=== PATIENT | male | born 1940 | race Caucasian/White ===

== ENCOUNTER → 2017-07-24 | Outpatient (CLI) | payer BC ==
--- NOTE | 2017-07-24 13:32 | DIAGNOSTIC IMAGING REPORT ---
BONE SCAN WHOLE BODY HISTORY: 77 years-old Male BONE LESION M89.9 bone lesions of T11 and L5. Follow-up study. COMPARISON: Lumbar spine MRI 06/25/2017 TECHNIQUE: Anterior and posterior lateral body bone scan images were obtained utilizing 24 mCi technetium 99 MDP. Scan was obtained 3 hours post injection. FINDINGS: No significant focal radiotracer uptake is seen within the T11 vertebral body to correlate with the previously described focal area of decreased T1 and T2 signal within this distribution. Mildly increased radiotracer uptake is seen at the L4 and L5 levels with uptake at L5 seen at the left aspect of the vertebral body. No focal abnormality is seen at the L4 level to correspond to the area of radiotracer uptake. Mild radiotracer uptake is noted about the shoulders, knees and thoracolumbar spine suggesting degenerative changes. Moderate focal area of radiotracer uptake in the region of the first digit right foot is also noted. Physiologic radiotracer uptake is seen about the kidneys, collecting systems and urinary bladder as well as the soft tissues. IMPRESSION: 1. Mildly increased radiotracer uptake within the L5 vertebral body is noted within the region of previously described L5 signal abnormality on comparison lumbar spine MRI. This finding is nonspecific. Short-term follow-up lumbar spine MRI recommended. 2. No focal radiotracer uptake identified to correlate with the area of signal abnormality within the T11 vertebral body. 3. Mildly increased radiotracer uptake at L4 without corresponding lesion seen on comparison MRI at this level. This may be degenerative in nature. 4. Areas of mildly increased radiotracer uptake throughout the appendicular skeletal system as above are likely degenerative. 5. Moderate focal radiotracer uptake within the region of the right first MTP joint may also be degenerative. Follow-up radiograph may be helpful to further evaluate. The above report was generated using voice recognition software. It may contain grammatical, syntax or spelling errors. Electronically signed by: Darin Ziegler M.D. 07/24/2017 1:30 PM Dictated Date/Time: 07/24/2017 1:16 PM
== END | disposition home or self-care (01) ==
LOC: C.NUCL 09:20
PROVIDERS: ATTEND Pain Medicine Interventional Pain Medicine
DX: M89.9 Disorder of bone, unspecified (principal)

== ENCOUNTER 2018-01-06 08:19 | Inpatient (IN) | payer BC, OTHER ==
[2017-12-16 11:52] VITALS: BMI 24.0
--- NOTE | 2017-12-16 12:35 | PAT Medication Instructions ---
Service Date Dec 16, 2017. Current Home Medication List Aspirin (Aspirin Ec), 325 MG PO HS Atenolol (Tenormin), 50 MG PO QAM Cetirizine (Zyrtec), 10 MG PO DAILY PRN for PRN Cyclobenzaprine Hcl (Flexeril), 10 MG PO TID PRN for Muscle Spasms Fluocinonide (Fluocinonide), 1 APPLN TOP DAILY PRN for PRN Indapamide (Lozol), 1.25 MG PO QAM Lisinopril (Lisinopril), 10 MG PO HS Nitroglycerin (Nitrostat), 0.4 MG UT PRN Nortriptyline (Pamelor), 10 MG PO HS Ranitidine (Zantac), 150 MG PO BID Temazepam (Restoril), 15 MG PO HS PRN for PRN [Humalog ], 1 DOSE SQ TIDM PRN for SLIDING SCALE Medication Instructions For Your Scheduled Surgery -Contact your surgeon and rd project manager for instructions for: Aspirin (Aspirin Ec), 325 MG PO HS (Baby Aspirin (81mg) is OK to continue per Dr. Longo) -Continue as directed: Nitroglycerin (Nitrostat), 0.4 MG UT PRN - Hold the following medications 24 hours prior to surgery: Fluocinonide (Fluocinonide), 1 APPLN TOP DAILY PRN for PRN - Hold the following medications the night before surgery: Lisinopril (Lisinopril), 10 MG PO HS - Hold the following medications the morning of surgery: Cetirizine (Zyrtec), 10 MG PO DAILY PRN for PRN Cyclobenzaprine Hcl (Flexeril), 10 MG PO TID PRN for Muscle Spasms Indapamide (Lozol), 1.25 MG PO QAM [Humalog ], 1 DOSE SQ TIDM PRN for SLIDING SCALE - Take the following medications the morning of surgery with a sip of water: Atenolol (Tenormin), 50 MG PO QAM Ranitidine (Zantac), 150 MG PO BID - Take the following medications as scheduled the night before surgery: Cetirizine (Zyrtec), 10 MG PO DAILY PRN for PRN (if needed) Cyclobenzaprine Hcl (Flexeril), 10 MG PO TID PRN for Muscle Spasms (if needed) Nortriptyline (Pamelor), 10 MG PO HS Ranitidine (Zantac), 150 MG PO BID Temazepam (Restoril), 15 MG PO HS PRN for PRN (if needed) [Humalog ], 1 DOSE SQ TIDM PRN for SLIDING SCALE If you have any questions please call us at [phone] or [phone] or [phone]
--- NOTE | 2017-12-16 13:09 | DIAGNOSTIC IMAGING REPORT ---
CHEST 2 VIEWS ROUTINE HISTORY: 77 years-old Male PAT preoperative exam. No acute chest complaints. COMPARISON: None available TECHNIQUE: PA and lateral views of the chest FINDINGS: Cardiomediastinal and hilar silhouettes are within normal limits. Atherosclerosis of the aorta. Coronary arterial stent graft noted. No pneumothorax, pleural effusion, focal airspace consolidation or overt pulmonary edema. Degenerative changes are noted within the shoulders and spine. Cystectomy clips are seen. IMPRESSION: No acute process. The above report was generated using voice recognition software. It may contain grammatical, syntax or spelling errors. Electronically signed by: Darin Ziegler M.D. 12/16/2017 1:08 PM Dictated Date/Time: 12/16/2017 1:06 PM
[2017-12-16 13:24] LABS: BASO % 0.1 %; BASO ABS # 0.01 K/uL (0-0.2); EOS % 2.2 %; EOS ABS # 0.16 K/uL (0-0.5); HEMOGLOBIN 15.2 g/dL (14.0-18.0); IG# 0.02 K/uL (0.00-0.02); LYMPH % 27.2 %; MEAN CORPUSCULAR HEMOGLOBIN 31.8 pg (25-34); MEAN CORPUSCULAR HGB CONC 35.3 g/dl (32-36); MONO % 9.8 %; MONO ABS # 0.72 K/uL (0.11-0.59); NEUT % 60.4 %; NEUT ABS # 4.45 K/uL (1.4-6.5); PLATELET COUNT 225 K/uL (130-400); RED CELL DISTRIBUTION WIDTH CV 13.1 % (11.5-14.5); RED CELL DISTRIBUTION WIDTH SD 43.2 fL (36.4-46.3); WHITE BLOOD COUNT 7.36 K/uL (4.8-10.8)
[2017-12-16 13:38] LABS: CALCIUM 9.7 mg/dl (8.5-10.1); CREATININE 0.94 mg/dl (0.60-1.40); POTASSIUM 4.4 mmol/L (3.5-5.1)
[~2018-01-06] VITALS: Ht 185.4 cm; Wt 85.5 kg
[2018-01-06] VITALS (11 sets, daily range): BP systolic 134–188; BP diastolic 64–82; PULSE 64–86; TEMP 36.3–36.4; O2SAT 94–98; Ht 185.4 cm; Wt 85.5 kg
[~2018-01-06 08:19] MED LIST: ASPI325T39 PO; ATEN50TA8 PO; ATROPINE SULFATE 0.1 MG/ML 5ML SYR IV PRN; CEFAZOLIN 2000MG IV PUSH 15 ML IV SCH; CETI10TA84 PO; CYCL10TA6 PO; EpHEDrine SULFATE INJ 50 MG/ML AMP IV PRN; FLUO0.0566 TOP; HUMALOG SQ; HYDROmorphone INJ 1 MG/ML SYR IV PRN; INDA1TAB3 PO; LACTATED RINGER'S 1000ML 1,000 ML IV SCH; LISI-461 PO; NORT10CA2 PO; NTRGSL/4 UT; ONDANSETRON INJ 2 MG/ML 2 ML VIAL IV PRN; RANI150T85 PO; TEMA15CA4 PO
[2018-01-06] MEDS ORDERED: ASPI81TA28 PO (09:14)
[2018-01-06] MEDS ORDERED: MIDAZOLAM HCL 1 MG/ML 2ML VIAL ONE (09:14)
[2018-01-06] MEDS ORDERED: FENTANYL CITRATE INJ 50 MCG/1 ML 2 ML VIAL ONE ×4 (09:14→13:27)
--- NOTE | 2018-01-06 09:23 | History & Physical Bridge Note ---
H&P Re-Evaluation Bridge Note: I have examined the patient, reviewed the History & Physical and in the interval since the performance of the History & Physical I have noted the following changes of clinical significance: No changes noted
--- NOTE | 2018-01-06 09:25 | History and Physical ---
History & Physical Date Jan 06, 2018. Chief Complaint Back and leg pain History of Present Illness The patient is a 78 year old male with complaints of back and leg pain Additional History Hepatic Disease: No Endocrine Disorder: No Kidney Disease: No Hypertension: Yes Heart Disease: No Bleeding Tendencies: No Infectious Diseases: No Allergies Coded Allergies: No Known Allergies (Unverified , 12/16/17) Home Medications Scheduled Aspirin (Aspirin Ec), 81 MG PO DAILY Atenolol (Tenormin), 50 MG PO QAM Indapamide (Lozol), 1.25 MG PO QAM Lisinopril (Lisinopril), 10 MG PO HS Nitroglycerin (Nitrostat), 0.4 MG UT PRN Nortriptyline (Pamelor), 10 MG PO HS Ranitidine (Zantac), 150 MG PO BID Scheduled PRN Cetirizine (Zyrtec), 10 MG PO DAILY PRN for PRN Cyclobenzaprine Hcl (Flexeril), 10 MG PO TID PRN for Muscle Spasms Fluocinonide (Fluocinonide), 1 APPLN TOP DAILY PRN for PRN Temazepam (Restoril), 15 MG PO HS PRN for PRN [Humalog ], 1 DOSE SQ TIDM PRN for SLIDING SCALE Physical Examination Skin: warm/dry, no rash Eyes: normal inspection, EOMI, sclerae normal ENT: normal ENT inspection, pharynx normal Head: normocephalic, atraumatic Neck: supple, no adenopathy, trachea midline Respiratory/Chest: lungs clear, normal breath sounds, no respiratory distress Cardiovascular: regular rate, rhythm, no edema, no murmur Abdomen / GI: normal bowel sounds, non tender Back: normal inspection Extremities: normal inspection, normal range of motion Neurologic/Psych: no motor/sensory deficits, alert, normal reflexes, oriented x 3 Diagnosis Lumbar spinal stenosis Plan of Treatment L3-S1 decompression and fusion possible L2-3
[2018-01-06] MEDS ORDERED: BACITRACIN 50000 UNIT VIAL ONE (09:47)
[2018-01-06] MEDS ORDERED: BUPIVACAINE/EPINEPHRINE 0.5% MPF 1:200,000 30 ML VIAL ONE (09:47)
[2018-01-06] MEDS ORDERED: HYDROmorphone INJ 2 MG/ML SYR/VIAL ONE ×3 (10:43→12:51)
[2018-01-06] MEDS ORDERED: ROCURONIUM BROMIDE 10 MG/ML 5 ML VIAL IV ONE (12:33)
[2018-01-06] MEDS ORDERED: DEXAMETHASONE SOD INJ 4 MG/ML VIAL ONE (12:33)
[2018-01-06] MEDS ORDERED: PROPOFOL IV EMULSION 10 MG/ML 20 ML VIAL IV ONE (12:33)
[2018-01-06] MEDS ORDERED: ONDANSETRON INJ 2 MG/ML 2 ML VIAL ONE ×2 (12:33→12:52)
[2018-01-06] MEDS ORDERED: LIDOCAINE HCL 2% 2 ML VIAL (20MG/ML) ONE (12:33)
[2018-01-06] MEDS ORDERED: VOLUVEN IN NSS ONE (12:33)
[2018-01-06] MEDS ORDERED: FLOSEAL HEMOSTATIC MATRIX 10ML TOP ONE (12:35)
[2018-01-06] MEDS ORDERED: SODIUM CHLORIDE 0.9% 1000ML 1,000 ML IV SCH (12:41)
--- NOTE | 2018-01-06 12:41 | [facility] Operative Report ---
Operative Report Operative Date Jan 06, 2018. Pre-Operative Diagnosis Lumbar spinal stenosis Post-Operative Diagnosis Lumbar spinal stenosis Procedure(s) Performed 1 Lumbar decompression medial facetectomies foraminotomies L3-4 L4-5 L5-S1. #2 posterior spinal fusion L3-4 L4-5 L5-S1. #3 posterior segmental instrumentation L3-4 L4-5 L5-S1. #4 interbody fusion L4-5. #5 placement peek cage 11 x 26 mm at L4-5. #6 placement of locally harvested morselized autograft and posterior gutters. #7 placement physical sponge, and master graft in the posterior lateral gutters and ostial and bone graft in the interbody space. Surgeon Dr. Kashif Longo Manager Environmental Services Surgeon(s) Alison Ravi PA-C Estimated Blood Loss 450ml Findings Severe spinal stenosis Specimens None per surgeon Anesthesia Type General Description of Procedure Patient was met with preoperatively case discussed all questions addressed. After informed consent obtained patient was taken to the operative suite underwent intubation and placed in a prone position on the Murphy table on top of the Devendra frame. All bony prominences were well-padded the eye is inspected to ensure no external pressure placed upon them. This point the lumbar spine was prepped and draped in normal sterile fashion. Sharp dissection with the assistance of Bovie cautery was performed on March exposing the lamina and transverse processes of L3-L4-L5 and the sacral ala bilaterally. A calcified fashion and laminectomy of L5 L4 and L3 was performed addressing severe lateral recess and foraminal stenosis. Pedicle screws were then placed in L3-L4-L5 and S1 levels bilaterally with the assistance of fluoroscopy and the appropriately sized vishnu placed. Through a transforaminal approach on the left complete discectomy will 4 5 was performed in plegic related to subcortical bleeding bone and a 11 x 26 mm peek cage filled with ostial amp bone graft tapped in position. Rods were then locked into final position bilaterally. The transverse processes of L3-L4-L5 and sacral ala burred to subcortical bleeding bone. Infuse collagen sponge mass graft and locally harvested Sanderson's allograft was placed in the posterior lateral gutters. A 15 round LIS drain inserted. Incision was then closed with 1 Vicryl fascia 2-0 Vicryl subcutaneously and 4-0 Monocryl fashion closure Steri-Strips sterile dressings placed. Patient will continue to PACU in stable condition. Please note Alison Ravi was present throughout the entire procedure involved in patient positioning complex portions of the surgery and final skin closure. I attest to the content of the Intraoperative Record and any orders documented therein. Any exceptions are noted below.
[2018-01-06] MEDS ORDERED: PROMETHAZINE HCL INJ 12.5 MG in SODIUM CHLORIDE 0.9% 50ML 50 ML IV PRN (12:45)
[2018-01-06] MEDS ORDERED: ACETAMINOPHEN 500 MG TAB PO PRN (12:45)
[2018-01-06] MEDS ORDERED: DO NOT ADMINISTER FLU VACCINE PRN (12:45)
[2018-01-06] MEDS ORDERED: FAMOTIDINE 20 MG TAB PO PRN (12:45)
[2018-01-06] MEDS ORDERED: ALUMINUM/MAGNESIUM SUSP 30 ML UDC PO PRN (12:45)
[2018-01-06] MEDS ORDERED: SOD PHOSPHATE/SOD BIPHOSPHATE ENEMA 132 ML BTL PR PRN (12:45)
[2018-01-06] MEDS ORDERED: ACETAMINOPHEN IV 100 ML IV PRN (12:45)
[2018-01-06] MEDS ORDERED: hydrOXYzine HCL 25 MG TAB PO PRN (12:45)
[2018-01-06] MEDS ORDERED: LORAZEPAM 0.5 MG TAB PO PRN (12:45)
[2018-01-06] MEDS ORDERED: NITROGLYCERIN 0.4 MG SL PER TAB CHARGE UT SCH (12:45)
[2018-01-06] MEDS ORDERED: TEMAZEPAM 15 MG CAP PO PRN (12:45)
[2018-01-06] MEDS ORDERED: LORAZEPAM INJ 0.5 MG in SYRINGE 0 ML IV PRN (12:45)
[2018-01-06] MEDS ORDERED: MAGNESIUM HYDROXIDE SUSP 30 ML UDC PO PRN (12:45)
[2018-01-06] MEDS ORDERED: METOCLOPRAMIDE HCL INJ 5 MG/ML 2 ML VIAL IV PRN (12:45)
[2018-01-06] MEDS ORDERED: BISACODYL 10 MG SUPP PR PRN (12:45)
[2018-01-06] MEDS ORDERED: DO NOT ADMINISTER PNEUMOCOCCAL VACCINE PRN (12:45)
[2018-01-06] MEDS ORDERED: NALOXONE HCL 0.4 MG/1 ML VIAL/CARP IV PRN ×2 (12:45)
--- NOTE | 2018-01-06 12:51 | DIAGNOSTIC IMAGING REPORT ---
LUMBAR SPINE 2 OR 3 VIEW HISTORY: 78 years-old Male L3-S1 DECOMPRESSION/FUSION/POSS L2-3 status post lumbar spine surgery COMPARISON: Lumbar spine radiographs 06/17/2017 TECHNIQUE: 2 spot fluoroscopic images of the lumbar spine were obtained utilizing 24.5 seconds fluoroscopy time FINDINGS: Postoperative changes from posterior decompression with posterior interbody vishnu and screw fusion at L3-S1. Discectomy changes at L4-L5. Multilevel intervertebral disc space narrowing with endplate spurring. Alignment appears satisfactory. IMPRESSION: Fluoroscopic assistance with lumbar spine fusion as above. Please see operative report for further details. The above report was generated using voice recognition software. It may contain grammatical, syntax or spelling errors. Electronically signed by: Darin Ziegler M.D. 01/06/2018 12:50 PM Dictated Date/Time: 01/06/2018 12:48 PM
[2018-01-06] MEDS ORDERED: NEOSTIGMINE METHYLSULFATE 1 MG/ML 10ML VIAL ONE (12:52)
[2018-01-06] MEDS ORDERED: KETOROLAC TROMETHAMINE 30 MG/ML VIAL ONE ×2 (12:52→14:12)
[2018-01-06] MEDS ORDERED: PHENYLEPHRINE 100MCG/ML 5ML SYR ONE (12:52)
[2018-01-06] MEDS ORDERED: EpHEDrine SULFATE 50MG/5ML SYR ONE (12:52)
[2018-01-06] MEDS ORDERED: GLYCOPYRROLATE INJ 0.2 MG/ML VIAL ONE (12:52)
[2018-01-06] MEDS ORDERED: HYDROmorphone HCL 0.5MG/ML 50 ML CASSETTE ONE (13:18)
[2018-01-06] MEDS: FENTANYL CITRATE INJ 50 MCG/1 ML 2 ML VIAL IV PRN ×4 (13:29→13:46)
--- NOTE | 2018-01-06 13:59 | Anesthesiology Progress Note ---
Anesthesia Post Op Note Date & Time Jan 06, 2018 at 13:59 Vital Signs Pain Intensity: 3 Vital Signs Past 12 Hours Date Time Temp Pulse Resp B/P (MAP) Pulse Ox O2 Delivery O2 Flow Rate FiO2 01/06/18 13:55 36.7 79 16 150/72 100 Nasal Cannula 4 01/06/18 13:45 78 16 121/61 100 Nasal Cannula 4 01/06/18 13:35 78 16 135/68 100 Nasal Cannula 4 01/06/18 13:25 79 16 123/51 100 Oxymask 10 01/06/18 13:15 80 16 142/57 100 Oxymask 10 01/06/18 13:08 36.6 85 16 95/55 100 Oxymask 10 01/06/18 08:51 36.3 64 20 160/71 98 01/06/18 08:48 64 20 160/71 Notes Mental Status: alert / awake / arousable, participated in evaluation Pt Amnestic to Procedure: Yes Nausea / Vomiting: adequately controlled Pain: adequately controlled Airway Patency, RR, SpO2: stable & adequate BP & HR: stable & adequate Hydration State: stable & adequate Anesthetic Complications: no major complications apparent
[2018-01-06] MEDS: HYDROmorphone HCL 0.5MG/ML 50 ML CASSETTE IV PRN ×3 (14:21→23:14)
[2018-01-06] MEDS ORDERED: GLUCOSE 10 TABS/TUBE PO PRN (15:15)
[2018-01-06] MEDS ORDERED: GLUCOSE 40% GEL 15 GM TUBE PO PRN (15:15)
[2018-01-06] MEDS ORDERED: DEXTROSE 50% 50 ML SYR IV PRN (15:15)
[2018-01-06] MEDS ORDERED: GLUCAGON FOR INJ 1 MG VIAL SQ PRN (15:15)
--- NOTE | 2018-01-06 15:22 | Medical Consult ---
History General Date of Service: Jan 06, 2018. Stated Complaint: Spinal Stenosis HPI The patient is a 78 year old male who presents to [facility] with complaints of Spinal Stenosis. The patient's primary care provider is Oralia Rojas. Patient underwent spinal decompression surgery by Dr. Longo earlier today for chronic low back pain - Patient has history of coronary artery disease status post multiple PTCA, mild aortic stenosis had preop evaluation by his food mixer repairer Patient reports of good exercise tolerance, was going to gym 2-3 times a week until he had to discontinue few months for back pain radiating to his legs -Recovering well postoperatively. Has intermittent pain at surgical site, mentions of getting relief with pain pump -No complaint of chest pain, no shortness of breath, no palpitation or dizzy spell Review of Systems Constitutional: reports: no symptoms Eyes: reports: no symptoms ENT: reports: no symptoms Cardiovascular: reports: no symptoms Respiratory: reports: no symptoms Gastrointestinal: reports: no symptoms Musculoskeletal: reports: other (Chronic back pain, status post lumbar decompression surgery earlier today) Integumentary: reports: no symptoms Psychiatric: reports: no symptoms Social History Hx Tobacco Use In Past Year?: No (QUIT AT AGE 34. HX OF 2 PPD X15 YEARS) Smoking Status: Former Smoker Allergies Coded Allergies: No Known Allergies (Unverified , 12/16/17) Current Medications Reported Home Medications Medications Dose Route/Sig Max Daily Dose Days Date Category Aspirin Ec (Aspirin) 81 Mg Tab 81 Mg PO DAILY 01/06/18 Reported [Humalog ] 1 Dose SQ TIDM PRN 12/16/17 Reported Nitrostat (Nitroglycerin) 0.4 Mg Tab 0.4 Mg UT PRN 12/16/17 Reported Zantac (Ranitidine HCl) 150 Mg Tab 150 Mg PO BID 12/16/17 Reported Lozol (Indapamide) 1.25 Mg Tab 1.25 Mg PO QAM 12/16/17 Reported Pamelor (Nortriptyline HCl) 10 Mg Cap 10 Mg PO HS 12/16/17 Reported Zyrtec (Cetirizine HCl) 10 Mg Tab 10 Mg PO DAILY PRN 12/16/17 Reported Tenormin (Atenolol) 50 Mg Tab 50 Mg PO QAM 12/16/17 Reported Lisinopril 10 Mg Tab 10 Mg PO HS 12/16/17 Reported Fluocinonide 0.05 % Rocio 1 Appln TOP DAILY PRN 30 12/16/17 Reported Flexeril (Cyclobenzaprine Hcl) 10 Mg Tab 10 Mg PO TID PRN 12/16/17 Reported Restoril (Temazepam) 15 Mg Cap 15 Mg PO HS PRN 12/16/17 Reported Physical Physical Exam Vital Signs: Date Time Temp Pulse Resp B/P (MAP) Pulse Ox O2 Delivery O2 Flow Rate FiO2 01/06/18 14:15 Nasal Cannula 2.0 01/06/18 14:15 36.4 78 16 134/64 (87) 96 Nasal Cannula 2.0 01/06/18 14:05 36.7 80 16 137/64 100 Nasal Cannula 4 01/06/18 13:55 36.7 79 16 150/72 100 Nasal Cannula 4 01/06/18 13:45 78 16 121/61 100 Nasal Cannula 4 01/06/18 13:35 78 16 135/68 100 Nasal Cannula 4 01/06/18 13:25 79 16 123/51 100 Oxymask 10 01/06/18 13:15 80 16 142/57 100 Oxymask 10 01/06/18 13:08 36.6 85 16 95/55 100 Oxymask 10 01/06/18 08:51 36.3 64 20 160/71 98 01/06/18 08:48 64 20 160/71 General Appearance: WELL-APPEARING, NO APPARENT DISTRESS Head: NORMOCEPHALIC, ATRAUMATIC Eyes: PERRLA, EOMI, SCLERAE NORMAL Neck: TRACHEA MIDLINE, SUPPLE Respiratory: BREATH SOUNDS NORMAL, CLEAR TO AUSCULTATION, NO RESPIRATORY DISTRESS Cardiovasular: NORMAL S1S2 Abdomen: NON TENDER, NORMAL BOWEL SOUNDS Back: other (Status post lumbar decompression surgery, ) Lower Extremities: NO EDEMA Neuro: ALERT, ORIENTED x 3 Psychiatric: NORMAL AFFECT Diagnostics Labs Results Past 24 Hours Test 01/06/18 09:01 01/06/18 13:16 01/06/18 15:07 Range/Units Bedside Glucose 140 203 70-99 mg/dl Radiology Interpretation: CXR NORMAL Impression Assessment and Plan LUMBER SPINE STENOSIS S/P DECOMPRESSION SURGERY : POD #0 -Doing well postop -Continue PT/ OT, pain management per orthopedics HX OF CAD S/P PTCA : no cardiac symptoms or angina hx of multivessel CAD S/p 4 stents in LAD , 1 stent in circumflex pt completed dual antiplatelet tx for 12 months ,off Plavix since end december had 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 Dr Abisai Magallanes , found to be stable from cardiac stand point to proceed with lumber spinal surgery Aspirin resumed -by Spine Ortho cont on Beta kirstie Atenolol not on statin for hx of intolerance on ACEI lisinopril 10 mg HS , monitor PRP to assess renal function post op ordered for Repeat EKG in AM PRN EKG for chest pain HTN : BP stable on Atenolol Hold Indapamide as pre op BMP shows hyponatremia ordered for repeat PRP check on Lisinopril 10 mg HS follow PRP closely as pt remains high risk for post op -vol loss /[place]O HYPERLIPIDEMIA : not on statin due to hx of intolerance TYPE 2 DM : no on any meds Hb a1c on 09/22/17 :7.3 BSG > 200 possible due to intraoperative IV steroids insulin SSI check Hb A1c in AM Thank you for this consultation. We will follow the patient with you during their hospital stay. You can reach a member of the [facility] Hospitalist Team 12/05 via pager @ [phone]. Dr. Bill will continue to follow this patient from tomorrow 01/07/2018. Admit To Med/Surg Code Status Level 1 - Full Code DVT Prophylaxis SCDs, other (aspirin ) Additional Copies To Josiah Magallanes M.D., Ireneusz
[2018-01-06] MEDS ORDERED: NITROGLYCERIN 0.4 MG SL PER TAB CHARGE SL PRN (15:30)
[2018-01-06 15:56] LABS: CALCIUM 8.2 mg/dl (8.5-10.1); CREATININE 0.94 mg/dl (0.60-1.40); POTASSIUM 3.9 mmol/L (3.5-5.1)
[2018-01-06] MEDS ORDERED: CHLORASEPTIC 1.4% SOLN 180 ML BTL MT ONE (16:10)
[2018-01-06] MEDS ORDERED: CHLORASEPTIC 1.4% SOLN 180 ML BTL MT PRN (16:15)
[2018-01-06] MEDS: SODIUM CHLORIDE 0.9% 1000ML 1,000 ML IV SCH ×2 (16:19→21:09)
--- NOTE | 2018-01-06 17:27 | Progress Note ---
Progress Note Date of Service Jan 06, 2018. Progress Note 1500 postop PRP reviewed: Sodium 138 (prior labs showing hyponatremia corrected) BUN of 19/creatinine 0.94/GFR more than 75% Renal function is at patient's baseline All patient's outpatient antihypertensives: Including Indapamide 1.25 mg AM resumed Summer Wyman MD
[2018-01-06] MEDS: CEFAZOLIN IV 2,000 MG in SYRINGE 0 ML IV SCH (18:28)
[2018-01-06] MEDS: ONDANSETRON INJ 2 MG/ML 2 ML VIAL IV PRN (18:52)
[2018-01-06] MEDS: INSULIN ASPART 100 UNITS/ML 3 ML PEN SC SCH ×2 (19:46→21:07)
[2018-01-06] MEDS: LISINOPRIL 10 MG TAB PO SCH (20:34)
[2018-01-06] MEDS: DOCUSATE SODIUM/SENNA 50/8.6MG TAB PO SCH (20:34)
[2018-01-06] MEDS: RANITIDINE HCL 150 MG TAB PO SCH (20:34)
[2018-01-06] MEDS: NORTRIPTYLINE HCL 10 MG CAP PO SCH (20:35)
[2018-01-07] VITALS (10 sets, daily range): BP systolic 127–179; BP diastolic 58–76; PULSE 64–84; TEMP 36.3–36.7; O2SAT 90–100
[2018-01-07] MEDS: CEFAZOLIN IV 2,000 MG in SYRINGE 0 ML IV SCH (02:18)
[2018-01-07] MEDS ORDERED: NURSING DECISION MEDICATION ORDER SCH (02:30)
[2018-01-07] MEDS: ONDANSETRON INJ 2 MG/ML 2 ML VIAL IV PRN (02:34)
[2018-01-07] MEDS: SODIUM CHLORIDE 0.9% 1000ML 1,000 ML IV SCH (04:02)
[2018-01-07] MEDS ORDERED: HYDROmorphone INJ 0.5 MG/0.5 ML SYR IV PRN (06:00)
[2018-01-07] MEDS ORDERED: DC PCA SCH (06:00)
[2018-01-07] MEDS: OXYCODONE HCL IR 5 MG TAB (IMMEDIATE RELEASE) PO PRN ×4 (08:05→21:48)
[2018-01-07 08:22] LABS: BASO % 0.1 %; BASO ABS # 0.01 K/uL (0-0.2); HEMOGLOBIN 11.6 g/dL (14.0-18.0); IG# 0.04 K/uL (0.00-0.02); LYMPH % 6.5 %; LYMPH ABS # 1.02 K/uL (1.2-3.4); MEAN CELL VOLUME 90.4 fL (80-100); MEAN CORPUSCULAR HEMOGLOBIN 31.8 pg (25-34); MEAN CORPUSCULAR HGB CONC 35.2 g/dl (32-36); MEAN PLATELET VOLUME 10.1 fL (7.4-10.4); MONO % 11.7 %; MONO ABS # 1.84 K/uL (0.11-0.59); NEUT % 81.4 %; NEUT ABS # 12.75 K/uL (1.4-6.5); PLATELET COUNT 177 K/uL (130-400); RED CELL DISTRIBUTION WIDTH CV 13.1 % (11.5-14.5); WHITE BLOOD COUNT 15.66 K/uL (4.8-10.8)
[2018-01-07 08:52] LABS: CALCIUM 8.6 mg/dl (8.5-10.1); CREATININE 0.77 mg/dl (0.60-1.40); POTASSIUM 3.9 mmol/L (3.5-5.1)
[2018-01-07 09:06] LABS: HEMOGLOBIN A1C 7.2 % (4.5-5.6)
[2018-01-07] MEDS: RANITIDINE HCL 150 MG TAB PO SCH ×2 (09:10→21:18)
[2018-01-07] MEDS: ASPIRIN 81 MG ECTAB PO SCH (09:11)
[2018-01-07] MEDS: CETIRIZINE HCL 10 MG TAB PO PRN (09:11)
[2018-01-07] MEDS: CYCLOBENZAPRINE HCL 10 MG TAB PO PRN ×2 (09:11→23:51)
[2018-01-07] MEDS: INSULIN ASPART 100 UNITS/ML 3 ML PEN SC SCH ×4 (09:15→21:00)
[2018-01-07] MEDS ORDERED: NURSING VERBAL MED ORDER ONE (09:30)
--- NOTE | 2018-01-07 11:01 | Anesthesiology Progress Note ---
Anesthesia Post Op Note Date & Time Jan 07, 2018 at 11:00 Vital Signs Pain Intensity: 6.0 Vital Signs Past 12 Hours Date Time Temp Pulse Resp B/P (MAP) Pulse Ox O2 Delivery O2 Flow Rate FiO2 01/07/18 07:45 94 Room Air 01/07/18 07:40 36.6 80 16 166/62 (96) 94 Room Air 01/07/18 04:03 140/61 (87) 01/07/18 02:55 36.4 84 16 177/76 (109) 100 Nasal Cannula 2.0 01/06/18 23:45 Nasal Cannula 2.0 01/06/18 23:05 36.4 86 18 135/72 (93) 98 Nasal Cannula 2.0 Notes Mental Status: alert / awake / arousable, participated in evaluation Pt Amnestic to Procedure: Yes Nausea / Vomiting: adequately controlled Pain: adequately controlled Airway Patency, RR, SpO2: stable & adequate BP & HR: stable & adequate Hydration State: stable & adequate Anesthetic Complications: no major complications apparent
[2018-01-07] MEDS: INDAPAMIDE 1.25 MG TAB PO SCH (11:46)
[2018-01-07] MEDS ORDERED: KETOROLAC TROMETHAMINE 15 MG/ML VIAL IV. STA (12:37)
--- NOTE | 2018-01-07 13:02 | Progress Note ---
Progress Note Date of Service Jan 07, 2018. Progress Note Patient complaining mostly of back pain. No significant leg pain some numbness to the left lower extremity. On exam his excellent strength testing appears comfortable. Assessment status post multilevel lumbar decompression fusion. Plan at this time we will add Toradol to his pain regimen to continue ambulation as tolerated hopefully discharge home Friday.
--- NOTE | 2018-01-07 16:40 | Progress Note ---
Medicine Progress Note Date & Time of Visit: Jan 07, 2018 at 13:27. Subjective 78-year-old man with spinal stenosis presents for decompression surgery. Patient reports tolerating p.o., pain well controlled. Has ambulate with PT without issue today. Reports some lower abdominal discomfort secondary to possible retained urine as he has had an issue with this at home in the past. Objective Last 8 Hrs Date Time Temp Pulse Resp B/P (MAP) Pulse Ox O2 Delivery O2 Flow Rate FiO2 01/07/18 11:54 36.7 69 14 136/60 (85) 95 Room Air 01/07/18 08:00 Room Air 01/07/18 07:45 94 Room Air 01/07/18 07:40 36.6 80 16 166/62 (96) 94 Room Air Physical Exam: GEN: WNWD, in no acute distress, alert and appropriate HEENT: NC/AT, normal sclerae, MMM CARDIO: reg rate, S1/2 heard without m/g/r LUNGS: CTA bilaterally, no crackles, rales or wheezes, good diaphragmatic excursion ABD: soft, non-tender, non-distended, no rebound or guarding BACK: gauze intact over incision site with dressing c/d/i. LIS drain in place. EXTREMITY: RP and DP palpable 2+ bilat, no LE swelling or edema, extremities are warm and well-perfused NEURO: CN 2-12 grossly intact MUSC: 5/5 strength throughout, no focal deficits SKIN: warm and dry Laboratory Results: 01/07/18 08:06 Red Blood Count 3.65, Mean Corpuscular Volume 90.4, Mean Corpuscular Hemoglobin 31.8, Mean Corpuscular Hemoglobin Concent 35.2, Mean Platelet Volume 10.1, Neutrophils (%) (Auto) 81.4, Lymphocytes (%) (Auto) 6.5, Monocytes (%) (Auto) 11.7, Eosinophils (%) (Auto) 0.0, Basophils (%) (Auto) 0.1, Neutrophils # (Auto ) 12.75, Lymphocytes # (Auto) 1.02, Monocytes # (Auto) 1.84, Eosinophils # (Auto ) 0.00, Basophils # (Auto) 0.01 01/07/18 08:06 Test 01/07/18 08:06 01/07/18 12:23 01/07/18 14:55 White Blood Count 15.66 K/uL (4.8-10.8) Red Blood Count 3.65 M/uL (4.7-6.1) Hemoglobin 11.6 g/dL (14.0-18.0) Hematocrit 33.0 % (42-52) Mean Corpuscular Volume 90.4 fL (80-100) Mean Corpuscular Hemoglobin 31.8 pg (25-34) Mean Corpuscular Hemoglobin Concent 35.2 g/dl (32-36) Platelet Count 177 K/uL (130-400) Mean Platelet Volume 10.1 fL (7.4-10.4) Neutrophils (%) (Auto) 81.4 % Lymphocytes (%) (Auto) 6.5 % Monocytes (%) (Auto) 11.7 % Eosinophils (%) (Auto) 0.0 % Basophils (%) (Auto) 0.1 % Neutrophils # (Auto) 12.75 K/uL (1.4-6.5) Lymphocytes # (Auto) 1.02 K/uL (1.2-3.4) Monocytes # (Auto) 1.84 K/uL (0.11-0.59) Eosinophils # (Auto) 0.00 K/uL (0-0.5) Basophils # (Auto) 0.01 K/uL (0-0.2) RDW Standard Deviation 43.0 fL (36.4-46.3) RDW Coefficient of Variation 13.1 % (11.5-14.5) Immature Granulocyte % (Auto) 0.3 % Immature Granulocyte # (Auto) 0.04 K/uL (0.00-0.02) Anion Gap 7.0 mmol/L (3-11) Est Creatinine Clear Calc Drug Dose 92.2 ml/min Estimated GFR () 102.2 Estimated GFR (Non- 88.1 BUN/Creatinine Ratio 24.4 (10-20) Estimated Average Glucose 160 mg/dl Hemoglobin A1c 7.2 % (4.5-5.6) Calcium Level 8.6 mg/dl (8.5-10.1) Magnesium Level 1.8 mg/dl (1.8-2.4) Bedside Glucose 165 mg/dl (70-99) Urine Color YELLOW Urine Appearance CLEAR (CLEAR) Urine pH 6.5 (4.5-7.5) Urine Specific [place] 1.006 (1.000-1.030) Urine Protein NEG (NEG) Urine Glucose (UA) NEG (NEG) Urine Ketones NEG (NEG) Urine Occult Blood 1+ (NEG) Urine Nitrite NEG (NEG) Urine Bilirubin NEG (NEG) Urine Urobilinogen NEG (NEG) Urine Leukocyte Esterase NEG (NEG) Urine WBC (Auto) 0 /hpf (0-5) Urine RBC (Auto) 0-4 /hpf (0-4) Urine Hyaline Casts (Auto) 0 /lpf (0-5) Urine Epithelial Cells (Auto) 0-5 /lpf (0-5) Urine Bacteria (Auto) NEG (NEG) Date/Time Source Procedure Growth Status 01/07/18 14:55 Urine,Catheterized Urine Culture Pending Received Last 24 Hours Test 01/06/18 15:14 01/06/18 15:55 01/06/18 17:20 01/06/18 20:56 Sodium Level 138 mmol/L Potassium Level 3.9 mmol/L Chloride Level 103 mmol/L Carbon Dioxide Level 26 mmol/L Anion Gap 9.0 mmol/L Blood Urea Nitrogen 19 mg/dl Creatinine 0.94 mg/dl Est Creatinine Clear Calc Drug Dose 75.5 ml/min Estimated GFR () 90.9 Estimated GFR (Non- 78.4 BUN/Creatinine Ratio 20.8 Random Glucose 194 mg/dl Calcium Level 8.2 mg/dl Bedside Glucose 195 mg/dl 213 mg/dl 230 mg/dl Test 01/07/18 02:37 01/07/18 08:06 01/07/18 08:09 01/07/18 12:23 Bedside Glucose 150 mg/dl 137 mg/dl 165 mg/dl White Blood Count 15.66 K/uL Red Blood Count 3.65 M/uL Hemoglobin 11.6 g/dL Hematocrit 33.0 % Mean Corpuscular Volume 90.4 fL Mean Corpuscular Hemoglobin 31.8 pg Mean Corpuscular Hemoglobin Concent 35.2 g/dl Platelet Count 177 K/uL Mean Platelet Volume 10.1 fL Neutrophils (%) (Auto) 81.4 % Lymphocytes (%) (Auto) 6.5 % Monocytes (%) (Auto) 11.7 % Eosinophils (%) (Auto) 0.0 % Basophils (%) (Auto) 0.1 % Neutrophils # (Auto) 12.75 K/uL Lymphocytes # (Auto) 1.02 K/uL Monocytes # (Auto) 1.84 K/uL Eosinophils # (Auto) 0.00 K/uL Basophils # (Auto) 0.01 K/uL RDW Standard Deviation 43.0 fL RDW Coefficient of Variation 13.1 % Immature Granulocyte % (Auto) 0.3 % Immature Granulocyte # (Auto) 0.04 K/uL Sodium Level 137 mmol/L Potassium Level 3.9 mmol/L Chloride Level 102 mmol/L Carbon Dioxide Level 28 mmol/L Anion Gap 7.0 mmol/L Blood Urea Nitrogen 19 mg/dl Creatinine 0.77 mg/dl Est Creatinine Clear Calc Drug Dose 92.2 ml/min Estimated GFR () 102.2 Estimated GFR (Non- 88.1 BUN/Creatinine Ratio 24.4 Random Glucose 141 mg/dl Estimated Average Glucose 160 mg/dl Hemoglobin A1c 7.2 % Calcium Level 8.6 mg/dl Magnesium Level 1.8 mg/dl Assessment & Plan 78-year-old man with spinal stenosis presents for decompression surgery. 1. Lumbar decompression with posterior spinal fusion, postop day #1-pain was reported not not be controlled overnight but is more controlled today. Continue management per orthospine. 2. Acute urinary retention-patient describes issues with voiding at home prior to the operation but is not taking any medications for this. Postvoid residual after Patel was removed and patient spontaneously voided was 700 cc per bladder scan. Straight cath was performed. Will replace Patel and consult urology if urinary retention persists. Of note Phenergan and Benadryl were stopped. These agents were not given but have anticholinergic effects which can more worsened urinary retention. 3. CAD-stable, no cardiac symptoms or angina present. Continue medical management with aspirin, beta-kirstie, DAVID inhibitor. Statin not on board per history of intolerance. Plavix was stopped at end of December after 1 year of dual antiplatelet therapy. 4. Hypertension-stable continue atenolol, indapamide, lisinopril. 5. Diabetes type 2-diet controlled. Postoperative blood sugar increased likely as a result of receiving dexamethasone intraoperatively. Continue insulin sliding scale with carb coverage. DVT prophylaxis-SCDs, per orthospine Full code Disposition-likely discharge on Friday Thank you for this consultation. We will follow the patient with you during their hospital stay. You can reach a member of the [facility] Hospitalist Team 12/05 via pager @ . Current Inpatient Medications: Current Inpatient Medications Medications (Trade) Dose Ordered Sig/Ivette Route Start Time Stop Time Status Last Admin Dose Admin Promethazine HCl 12.5 mg/Sodium Chloride 50.5 ml @ 202 mls/hr Q6H PRN IV 01/06/18 12:45 02/05/18 12:44 Ondansetron HCl (Zofran Inj) 4 mg Q6H PRN IV 01/06/18 12:45 02/05/18 12:44 01/07/18 02:34 4 MG Metoclopramide HCl (Reglan Inj) 10 mg Q6H PRN IV 01/06/18 12:45 02/05/18 12:44 01/07/18 08:05 10 MG Lorazepam (Ativan Tab) 0.5 mg Q8H PRN PO 01/06/18 12:45 02/05/18 12:44 Lorazepam 0.5 mg/ Syringe 0.25 ml @ 1 mls/min Q8H PRN IV 01/06/18 12:45 02/05/18 12:44 Pneumococcal Polysaccharide Vaccine 1 ea PRN PRN N/A 01/06/18 12:45 02/05/18 12:44 Influenza Virus Vacc Triv Types A&B 1 ea PRN PRN N/A 01/06/18 12:45 02/05/18 12:44 Polyethylene (Miralax Powder Packet) 17 gm Q6 PO 01/08/18 06:00 02/07/18 05:59 Bisacodyl (Dulcolax Supp) 10 mg DAILY PRN IN 01/06/18 12:45 02/05/18 12:44 Magnesium Hydroxide (Milk Of Magnesia Susp) 30 ml DAILY PRN PO 01/06/18 12:45 02/05/18 12:44 Hydromorphone HCl (Dilaudid Inj) 0.5-1mg prn moder... Q3H PRN IV 01/07/18 06:00 01/21/18 05:59 Oxycodone HCl (Roxicodone Immediate Rel Tab) 5-10mg prn moderate to sev... Q4H PRN PO 01/07/18 06:00 4/4/18 05:59 01/07/18 12:23 10 MG Acetaminophen (Tylenol Tab) 1,000 mg Q8H PRN PO 01/06/18 12:45 02/05/18 12:44 Acetaminophen 100 ml @ 400 mls/hr Q8H PRN IV 01/06/18 12:45 02/05/18 12:44 Naloxone HCl (Narcan Inj) 0.1 mg Q5M PRN IV 01/06/18 12:45 02/05/18 12:44 Senna/Docusate Sodium (Senokot S Tab) 2 tab HS PO 01/06/18 21:00 02/05/18 20:59 01/06/18 20:34 2 TAB Sodium Biphosphate/ Sodium Phosphate (Fleet Enema) 132 ml ONE PRN IN 01/06/18 12:45 02/05/18 12:44 Hydroxyzine HCl (Vistaril Tab) 25 mg Q8H PRN PO 01/06/18 12:45 02/05/18 12:44 Al Hydroxide/Mg Hydroxide (Maalox Susp) 30 ml Q6H PRN PO 01/06/18 12:45 02/05/18 12:44 Famotidine (Pepcid Tab) 20 mg Q12 PRN PO 01/06/18 12:45 02/05/18 12:44 Diphenhydramine HCl (Benadryl Cap) 25 mg Q6H PRN PO 01/06/18 12:45 02/05/18 12:44 Aspirin (Ecotrin Tab) 81 mg DAILY PO 01/07/18 09:00 02/06/18 08:59 01/07/18 09:11 81 MG Atenolol (Tenormin Tab) 50 mg QAM PO 01/07/18 09:00 02/06/18 08:59 01/07/18 09:11 50 MG Cetirizine HCl (zyrTEC TAB) 10 mg DAILY PRN PO 01/06/18 12:45 02/05/18 12:44 01/07/18 09:11 10 MG Cyclobenzaprine HCl (Flexeril Tab) 10 mg TID PRN PO 01/06/18 12:45 02/05/18 12:44 01/07/18 09:11 10 MG Indapamide (Lozol Tab) 1.25 mg QAM PO 01/07/18 09:00 02/06/18 08:59 Future hold 01/07/18 11:46 1.25 MG Lisinopril (Zestril Tab) 10 mg HS PO 01/06/18 21:00 02/05/18 20:59 01/06/18 20:34 10 MG Nortriptyline HCl (Pamelor Cap) 10 mg HS PO 01/06/18 21:00 02/05/18 20:59 01/06/18 20:35 10 MG Ranitidine HCl (zANTac TAB) 150 mg BID PO 01/06/18 21:00 02/05/18 20:59 01/07/18 09:10 150 MG Temazepam (Restoril Cap) 15 mg HS PRN PO 01/06/18 12:45 02/05/18 12:44 Insulin Aspart (novoLOG ASPART) SLIDING SCALE If C... ACHS SC 01/06/18 17:15 02/05/18 17:14 01/06/18 21:07 3 UNITS Glucose (Glucose 40% Gel) 15-30 GRAMS 15 GRAMS... UD PRN PO 01/06/18 15:15 02/05/18 15:14 Glucose (Glucose Chew Tab) 4-8 Tablets 4 Tabl... UD PRN PO 01/06/18 15:15 02/05/18 15:14 Dextrose (Dextrose 50% 50ML Syringe) 25-50ML OF 50% DW IV FOR... UD PRN IV 01/06/18 15:15 02/05/18 15:14 Glucagon (Glucagon Inj) 1 mg UD PRN SQ 01/06/18 15:15 02/05/18 15:14 Nitroglycerin (Nitrostat Tab) 0.4 mg PRN PRN SL 01/06/18 15:30 02/05/18 15:29 Phenol (Chloraseptic 1.4% [place]) 2 sprays Q4 PRN MT 01/06/18 16:15 02/05/18 16:14 Ketorolac Tromethamine (Toradol Inj) 15 mg Q6H PRN IV. 01/07/18 12:45 01/12/18 12:44
[2018-01-07] MEDS ORDERED: PHENAZOPYRIDINE HCL 200 MG TAB PO ONE (16:45)
[2018-01-07] MEDS: KETOROLAC TROMETHAMINE 15 MG/ML VIAL IV. PRN (21:06)
[2018-01-07] MEDS: NORTRIPTYLINE HCL 10 MG CAP PO SCH (21:17)
[2018-01-07] MEDS: DOCUSATE SODIUM/SENNA 50/8.6MG TAB PO SCH (21:17)
[2018-01-07] MEDS: LISINOPRIL 10 MG TAB PO SCH (21:18)
[2018-01-07] MEDS: PHENAZOPYRIDINE HCL 200 MG TAB PO SCH (21:18)
[2018-01-07] MEDS ORDERED: LIDOCAINE HCL 2% JELLY 30 ML TUBE EXT PRN (22:00)
[2018-01-08] MEDS: POLYETHYLENE (MIRALAX) 17 GM PACK PO SCH ×4 (05:52→23:33)
[2018-01-08] MEDS: OXYCODONE HCL IR 5 MG TAB (IMMEDIATE RELEASE) PO PRN ×3 (05:55→15:21)
[2018-01-08 05:58] LABS: HEMATOCRIT 32.6 % (42-52); HEMOGLOBIN 10.9 g/dL (14.0-18.0); MEAN CELL VOLUME 92.1 fL (80-100); MEAN CORPUSCULAR HEMOGLOBIN 30.8 pg (25-34); MEAN CORPUSCULAR HGB CONC 33.4 g/dl (32-36); MEAN PLATELET VOLUME 10.5 fL (7.4-10.4); PLATELET COUNT 170 K/uL (130-400); RED CELL DISTRIBUTION WIDTH CV 13.2 % (11.5-14.5); RED CELL DISTRIBUTION WIDTH SD 44.9 fL (36.4-46.3); WHITE BLOOD COUNT 11.51 K/uL (4.8-10.8)
[2018-01-08 06:38] LABS: CREATININE 0.95 mg/dl (0.60-1.40)
[2018-01-08 06:39] LABS: CALCIUM 8.8 mg/dl (8.5-10.1); POTASSIUM 3.9 mmol/L (3.5-5.1)
[2018-01-08 07:33] VITALS: BP 124/65; PULSE 78; TEMP 36.7; O2SAT 93
[2018-01-08] MEDS: ASPIRIN 81 MG ECTAB PO SCH (09:12)
[2018-01-08] MEDS: PHENAZOPYRIDINE HCL 200 MG TAB PO SCH ×3 (09:12→20:55)
[2018-01-08] MEDS: INDAPAMIDE 1.25 MG TAB PO SCH (09:12)
[2018-01-08] MEDS: CETIRIZINE HCL 10 MG TAB PO PRN (09:12)
[2018-01-08] MEDS: INSULIN ASPART 100 UNITS/ML 3 ML PEN SC SCH ×4 (09:16→21:03)
[2018-01-08] MEDS: RANITIDINE HCL 150 MG TAB PO SCH ×2 (10:50→20:55)
--- NOTE | 2018-01-08 11:55 | Clinical Documentation Query ---
CLINICAL DOCUMENTATION QUERY Dr. TOMAS, In your clinical opinion is this patient being managed for: ( x ) Expected acute blood loss anemia ( ) Not Agree ( ) Other explanation of clinical findings (Please Explain) ( ) Unable to determine (Please Define) ( ) Need to Discuss The medical record reflects the following clinical findings, treatment, and risk factors. Clinical Indicators: 78 yo male presenting with lumbar stenosis requiring a spinal fusion. Baseline Hgb 15.2, Hct 43 which has trended down to Hgb 10.9/Hct 32.6. Pt had an EBL of 450 cc with additional 575 cc LIS drainage since surgery. Treatment: monitor CBC Risk Factors: expected surgical blood loss Please clarify and document your clinical opinion in the progress notes and discharge summary. Terms such as "probable", "suspected", "likely", "questionable", "possible", or "still to be ruled out" are acceptable. IF IN AGREEMENT, YOU MUST DOCUMENT ABOVE DIAGNOSTIC STATEMENT IN DAILY PROGRESS NOTES AND DISCHARGE SUMMARY. This document is not part of the patient's record. Thank You, Yanet Yang RN [phone]
--- NOTE | 2018-01-08 12:00 | Clinical Documentation Query ---
CLINICAL DOCUMENTATION QUERY Dr. MURCIA, In your clinical opinion is this patient being managed for: (x ) Expected acute blood loss anemia ( ) Not Agree ( ) Other explanation of clinical findings (Please Explain) ( ) Unable to determine (Please Define) ( ) Need to Discuss The medical record reflects the following clinical findings, treatment, and risk factors. Clinical Indicators: 78 yo male presenting with lumbar stenosis requiring a spinal fusion. Baseline Hgb 15.2, Hct 43 which has trended down to Hgb 10.9/Hct 32.6. Pt had an EBL of 450 cc with additional 575 cc LIS drainage since surgery. Treatment: monitor CBC Risk Factors: expected surgical blood loss Please clarify and document your clinical opinion in the progress notes and discharge summary. Terms such as "probable", "suspected", "likely", "questionable", "possible", or "still to be ruled out" are acceptable. IF IN AGREEMENT, YOU MUST DOCUMENT ABOVE DIAGNOSTIC STATEMENT IN DAILY PROGRESS NOTES AND DISCHARGE SUMMARY. This document is not part of the patient's record. Thank You, Yanet Yang RN [phone]
--- NOTE | 2018-01-08 13:30 | Urology Consultation ---
History General Date of Service: Jan 08, 2018. Chief Complaint: urinary retention Primary Care Physician: Oralia Rojas Pt seen a urologist before?: No History of Present Illness 78 yo male with post-op urinary retention s/p spinal surgery. Pt reports difficulty voiding and nocturia x 1 year pre-op. He has been straight cathed at least twice since yesterday for PVRs of 600ml. He is voiding small amounts on his own at this time. Denies dysuria or hematuria. Preliminary UC&S from yesterday is negative. Laboratory Last 24 Hours Test 01/07/18 14:55 01/07/18 16:44 01/07/18 20:41 01/07/18 21:03 Urine Color YELLOW Urine Appearance CLEAR Urine pH 6.5 Urine Specific [place] 1.006 Urine Protein NEG Urine Glucose (UA) NEG Urine Ketones NEG Urine Occult Blood 1+ Urine Nitrite NEG Urine Bilirubin NEG Urine Urobilinogen NEG Urine Leukocyte Esterase NEG Urine WBC (Auto) 0 /hpf Urine RBC (Auto) 0-4 /hpf Urine Hyaline Casts (Auto) 0 /lpf Urine Epithelial Cells (Auto) 0-5 /lpf Urine Bacteria (Auto) NEG Bedside Glucose 124 mg/dl 125 mg/dl 119 mg/dl Test 01/08/18 05:45 01/08/18 08:17 01/08/18 11:55 White Blood Count 11.51 K/uL Red Blood Count 3.54 M/uL Hemoglobin 10.9 g/dL Hematocrit 32.6 % Mean Corpuscular Volume 92.1 fL Mean Corpuscular Hemoglobin 30.8 pg Mean Corpuscular Hemoglobin Concent 33.4 g/dl RDW Standard Deviation 44.9 fL RDW Coefficient of Variation 13.2 % Platelet Count 170 K/uL Mean Platelet Volume 10.5 fL Sodium Level 136 mmol/L Potassium Level 3.9 mmol/L Chloride Level 103 mmol/L Carbon Dioxide Level 28 mmol/L Anion Gap 5.0 mmol/L Blood Urea Nitrogen 22 mg/dl Creatinine 0.95 mg/dl Est Creatinine Clear Calc Drug Dose 74.7 ml/min Estimated GFR () 89.8 Estimated GFR (Non- 77.4 BUN/Creatinine Ratio 22.9 Random Glucose 121 mg/dl Calcium Level 8.8 mg/dl Bedside Glucose 117 mg/dl 102 mg/dl Past History coronary artery disease, other (mild aortic stenosis, spinal stenosis) Past Surgical History: spinal surgery (01-06-18) Family History non-contributory Social History Hx Tobacco Use In Past Year?: No (QUIT AT AGE 34. HX OF 2 PPD X15 YEARS) Smoking: quit greater than 1 year (quit at age 34) Marital status: Housing status: lives with family Occupation status: retired Allergies Coded Allergies: No Known Allergies (Unverified , 12/16/17) Medications Home Medications: Home Meds and Scripts Medications Dose Route/Sig Max Daily Dose Days Date Category Aspirin Ec (Aspirin) 81 Mg Tab 81 Mg PO DAILY 01/06/18 Reported [Humalog ] 1 Dose SQ TIDM PRN 12/16/17 Reported Nitrostat (Nitroglycerin) 0.4 Mg Tab 0.4 Mg UT PRN 12/16/17 Reported Zantac (Ranitidine HCl) 150 Mg Tab 150 Mg PO BID 12/16/17 Reported Lozol (Indapamide) 1.25 Mg Tab 1.25 Mg PO QAM 12/16/17 Reported Pamelor (Nortriptyline HCl) 10 Mg Cap 10 Mg PO HS 12/16/17 Reported Zyrtec (Cetirizine HCl) 10 Mg Tab 10 Mg PO DAILY PRN 12/16/17 Reported Tenormin (Atenolol) 50 Mg Tab 50 Mg PO QAM 12/16/17 Reported Lisinopril 10 Mg Tab 10 Mg PO HS 12/16/17 Reported Fluocinonide 0.05 % Rocio 1 Appln TOP DAILY PRN 30 12/16/17 Reported Flexeril (Cyclobenzaprine Hcl) 10 Mg Tab 10 Mg PO TID PRN 12/16/17 Reported Restoril (Temazepam) 15 Mg Cap 15 Mg PO HS PRN 12/16/17 Reported Inpatient Medications: Current Inpatient Medications Medications (Trade) Dose Ordered Sig/Ivette Route Start Time Stop Time Status Last Admin Dose Admin Ondansetron HCl (Zofran Inj) 4 mg Q6H PRN IV 01/06/18 12:45 02/05/18 12:44 01/07/18 02:34 4 MG Metoclopramide HCl (Reglan Inj) 10 mg Q6H PRN IV 01/06/18 12:45 02/05/18 12:44 01/07/18 08:05 10 MG Lorazepam (Ativan Tab) 0.5 mg Q8H PRN PO 01/06/18 12:45 02/05/18 12:44 Lorazepam 0.5 mg/ Syringe 0.25 ml @ 1 mls/min Q8H PRN IV 01/06/18 12:45 02/05/18 12:44 Pneumococcal Polysaccharide Vaccine 1 ea PRN PRN N/A 01/06/18 12:45 02/05/18 12:44 Influenza Virus Vacc Triv Types A&B 1 ea PRN PRN N/A 01/06/18 12:45 02/05/18 12:44 Polyethylene (Miralax Powder Packet) 17 gm Q6 PO 01/08/18 06:00 02/07/18 05:59 01/08/18 05:52 17 GM Bisacodyl (Dulcolax Supp) 10 mg DAILY PRN [place] 01/06/18 12:45 02/05/18 12:44 Magnesium Hydroxide (Milk Of Magnesia Susp) 30 ml DAILY PRN PO 01/06/18 12:45 02/05/18 12:44 Hydromorphone HCl (Dilaudid Inj) 0.5-1mg prn moder... Q3H PRN IV 01/07/18 06:00 01/21/18 05:59 Oxycodone HCl (Roxicodone Immediate Rel Tab) 5-10mg prn moderate to sev... Q4H PRN PO 01/07/18 06:00 01/21/18 05:59 01/08/18 10:52 10 MG Acetaminophen (Tylenol Tab) 1,000 mg Q8H PRN PO 01/06/18 12:45 02/05/18 12:44 Acetaminophen 100 ml @ 400 mls/hr Q8H PRN IV 01/06/18 12:45 02/05/18 12:44 Naloxone HCl (Narcan Inj) 0.1 mg Q5M PRN IV 01/06/18 12:45 02/05/18 12:44 Senna/Docusate Sodium (Senokot S Tab) 2 tab HS PO 01/06/18 21:00 02/05/18 20:59 01/07/18 21:17 2 TAB Sodium Biphosphate/ Sodium Phosphate (Fleet Enema) 132 ml ONE PRN [place] 01/06/18 12:45 02/05/18 12:44 Hydroxyzine HCl (Vistaril Tab) 25 mg Q8H PRN PO 01/06/18 12:45 02/05/18 12:44 Al Hydroxide/Mg Hydroxide (Maalox Susp) 30 ml Q6H PRN PO 01/06/18 12:45 02/05/18 12:44 Famotidine (Pepcid Tab) 20 mg Q12 PRN PO 01/06/18 12:45 02/05/18 12:44 Aspirin (Ecotrin Tab) 81 mg DAILY PO 01/07/18 09:00 02/06/18 08:59 01/08/18 09:12 81 MG Atenolol (Tenormin Tab) 50 mg QAM PO 01/07/18 09:00 02/06/18 08:59 01/08/18 09:13 50 MG Cetirizine HCl (zyrTEC TAB) 10 mg DAILY PRN PO 01/06/18 12:45 02/05/18 12:44 01/08/18 09:12 10 MG Cyclobenzaprine HCl (Flexeril Tab) 10 mg TID PRN PO 01/06/18 12:45 02/05/18 12:44 01/07/18 23:51 10 MG Indapamide (Lozol Tab) 1.25 mg QAM PO 01/07/18 09:00 02/06/18 08:59 Future hold 01/08/18 09:12 1.25 MG Lisinopril (Zestril Tab) 10 mg HS PO 01/06/18 21:00 02/05/18 20:59 01/07/18 21:18 10 MG Nortriptyline HCl (Pamelor Cap) 10 mg HS PO 01/06/18 21:00 02/05/18 20:59 01/07/18 21:17 10 MG Ranitidine HCl (zANTac TAB) 150 mg BID PO 01/06/18 21:00 02/05/18 20:59 01/08/18 10:50 150 MG Temazepam (Restoril Cap) 15 mg HS PRN PO 01/06/18 12:45 02/05/18 12:44 Insulin Aspart (novoLOG ASPART) SLIDING SCALE If C... ACHS SC 01/06/18 17:15 02/05/18 17:14 01/08/18 09:16 2 UNITS Glucose (Glucose 40% Gel) 15-30 GRAMS 15 GRAMS... UD PRN PO 01/06/18 15:15 02/05/18 15:14 Glucose (Glucose Chew Tab) 4-8 Tablets 4 Tabl... UD PRN PO 01/06/18 15:15 02/05/18 15:14 Dextrose (Dextrose 50% 50ML Syringe) 25-50ML OF 50% DW IV FOR... UD PRN IV 01/06/18 15:15 02/05/18 15:14 Glucagon (Glucagon Inj) 1 mg UD PRN SQ 01/06/18 15:15 02/05/18 15:14 Nitroglycerin (Nitrostat Tab) 0.4 mg PRN PRN SL 01/06/18 15:30 02/05/18 15:29 Phenol (Chloraseptic 1.4% [place]) 2 sprays Q4 PRN MT 01/06/18 16:15 02/05/18 16:14 Ketorolac Tromethamine (Toradol Inj) 15 mg Q6H PRN IV. 01/07/18 12:45 01/12/18 12:44 01/07/18 21:06 15 MG Phenazopyridine HCl (Pyridium Tab) 200 mg TID PO 01/07/18 21:00 01/09/18 09:01 01/08/18 09:12 200 MG Lidocaine HCl (Xylocaine Jelly 2%) PRN PRN EXT 01/07/18 22:00 02/06/18 21:59 Review of Systems Review of Systems Constitutional: No fever, No chills Eyes: No double vision Neurological: No dizzy Endocrine: No excessive thirst Gastrointestinal: No abdominal pain, No nausea, No vomiting Cardiovascular: No chest pain Respiratory: No shortness of breath Skin: No rash Musculoskeletal: + back pain Male : + urinary retention, No painful urination, No blood in urine Physical Exam Vital Signs: Vital Signs Past 12 Hours Date Time Temp Pulse Resp B/P (MAP) Pulse Ox O2 Delivery O2 Flow Rate FiO2 01/08/18 07:33 36.7 78 16 124/65 (84) 93 Room Air 01/08/18 07:30 Room Air Physical Exam: General Appearance: no apparent distress Eyes: bilateral eyes normal inspection ENT: hearing grossly normal Neck: no JVD Respiratory/Chest: no respiratory distress, no accessory muscle use Cardiovascular: no JVD Extremities: normal inspection Neurologic/Psychiatric: alert, normal mood/affect, oriented x 3 Skin: normal color Assessment & Plan Assessment & Plan A/P: Post-op urinary retention AFVSS. Plan to recheck a bladder scan later today. If PVR >200ml, will replace knapp catheter and leave in place for 1 week. Will attempt a trial of void at that time. Will also start Flomax. Monitor for orthostasis after administration. Thanks for the consult. Will continue to follow along with primary service.
--- NOTE | 2018-01-08 14:01 | Progress Note ---
Progress Note Date of Service Jan 08, 2018. Progress Note Patient's back pain is controlled. Leg pain improved. He is much more comfortable today. He still struggling with urinary retention. On exam he has good strength testing appears comfortable. Assessment status post multilevel lumbar decompression fusion. Plan at this time will continue with physical therapy anticipate discharge home tomorrow.
[2018-01-08] MEDS ORDERED: RXC5 PO (15:52)
[2018-01-08 15:53] VITALS: BP 149/69; PULSE 83; TEMP 36.8; O2SAT 87
--- NOTE | 2018-01-08 15:54 | Discharge Instructions ---
Discharge Instructions Date of Service Jan 08, 2018. Admission Reason for Admission: Spinal Stenosis Discharge Discharge Diagnosis / Problem: lumbar stenosis Discharge Goals Goal(s): Improve function Activity Recommendations Activity Limitations: per Instructions/Follow-up section . Instructions / Follow-Up Instructions / Follow-Up ACTIVITY RECOMMENDATIONS: SELF CARE INSTRUCTIONS AFTER THORACIC/LUMBAR FUSIONS 1. You may walk to your tolerance. It is good exercise for your legs and back. Expect some back and intermittent leg aches and pains. 2. You may perform "counter-top" level activities (make a sandwich, stefanie with a project, etc.). 3. No bending or lifting of more than 10 pounds or back twisting of any nature (roll like a log when turning in bed). 4. You may ride in a car for 20-30 minutes at a time. No driving until after your first visit with your doctor. 5. Frequent changes of position and restricting sitting to 30 minutes at a time will help limit the amount of back spasms and stiffness you may experience. 6. You may discontinue the use of ambulatory aids (cane, crutches, etc.) once your strength and confidence allow. 7. You may supervisor hanging and trimming the shower and let water strike your incision when you arrive home at least once daily. Do not take a tub bath, sit in a hot tub or go into a swimming pool until after your first recheck in the office. SPECIAL CARE INSTRUCTIONS: VERY IMPORTANT TO READ AND REVIEW A. Your surgical incision has been closed with a cosmetic suture under the skin that will dissolve in about 6 weeks. In 14 days, you can use a pair of clean scissors and cut the suture that is left outside of the skin at the ends of your incision. 1. The small skin tapes can be removed 7 days after surgery if they have not fallen off by that point. 2. You may keep the wound open to air as much as possible to promote healing after post-op day number 5 unless told otherwise by your doctor. 3. If you think the wound looks like it is becoming infected (redness or worsening drainage) and/or you are experiencing fever, chill or worsening back pain and muscle spasms, contact the office so that we may evaluate you as soon as possible. B. Complications are uncommon, but please contact us if you have any signs or symptoms of: 1. wound infection (fever higher than 102.5 degrees F, redness, separation of wound, drainage, or increasing pain from the incision) 2. blood clots in legs (pain, swelling, redness and warmth in legs) 3. urinary tract infection (fever higher than 102.5 degrees F, burning upon urination or increased frequency of urination) 4. nerve problems (inability to walk on your toes or heels, numbness, loss of bowel or bladder control) 5. any other symptoms that concern you C. Please call the office at if you have any concerns or questions about your operation or recovery. D. No smoking! Smoking drastically decreases the chance of a solid fusion. E. Do not take any anti-inflammatory medications (Indocin, Advil, Motrin, Aspirin, Naprosyn, etc.) as these may inhibit the chance of a solid fusion. Tylenol is okay to take for pain. MANAGING PAIN AFTER SPINAL SURGERY 1. Narcotic medication is intended for short-term use and will be provided for surgical pain. Surgical pain usually lasts for a period of 4-6 weeks. Narcotic medication includes Percocet, Vicodin, Darvocet, Tylenol #3 or Lortab. 2. Longer-term pain is more appropriately treated with non-narcotic medication such as Tylenol ES. 3. Muscle spasm is not appropriately treated with narcotics. Muscle relaxers such as Soma, Flexeril or Skelaxin can be used along with Tylenol ES. 4. Remember that we all live with some "aches and pains". This is not unusual or uncommon after an injury or as we get older. a. Back pain is expected and may include muscle spasms for 4 to 6 weeks after surgery. The pain should gradually improve. If the pain worsens for no apparent reason, please contact the office. b. Intermittent leg pain may also be experienced and should not be concerned about unless it worsens for no apparent reason. If so, please contact the office. 5. We will provide appropriate medication within the normal guidelines of their prescribed use. We will also be very cautious and aware of potential abuse and extended duration of patients' medication needs. a. Pain medications are for your comfort and to assist with sleep and rest so that the tissue can heal. They are not provided in order to return to normal activity and should not be used through the day. To do so or worsening pain at night can result from ongoing tissue damage and development of tolerance to the prescribed medicine. 6. Please allow 2-3 days to process refills. Prescriptions will not be mailed but must be picked up at the office. FOLLOW UP VISIT: Keep your scheduled follow-up appointment. Any questions, please call the office at . Current Hospital Diet Patient's current hospital diet: Diabetes Type 2 Diet Discharge Diet Recommended Diet: Regular Diet Procedures Procedures Performed: 1 Lumbar decompression medial facetectomies foraminotomies L3-4 L4-5 L5-S1. #2 posterior spinal fusion L3-4 L4-5 L5-S1. #3 posterior segmental instrumentation L3-4 L4-5 L5-S1. #4 interbody fusion L4-5. #5 placement peek cage 11 x 26 mm at L4-5. #6 placement of locally harvested morselized autograft and posterior gutters. #7 placement physical sponge, and master graft in the posterior lateral gutters and ostial and bone graft in the interbody space. Pending Studies Studies pending at discharge: no Laboratory Results Hemoglobin A1c Test 01/07/18 08:06 Range/Units Estimated Average Glucose 160 mg/dl Hemoglobin A1c 7.2 H 4.5-5.6 % Medical Emergencies . Who to Call and When: Medical Emergencies: If at any time you feel your situation is an emergency, please call 911 immediately. . Non-Emergent Contact Non-Emergency issues call your: Primary Care Provider . "Provider Documentation" section prepared by Kashif Longo. .
[2018-01-08] MEDS: KETOROLAC TROMETHAMINE 15 MG/ML VIAL IV. PRN (16:51)
--- NOTE | 2018-01-08 17:28 | Progress Note ---
Medicine Progress Note Date & Time of Visit: Jan 08, 2018 at 17:23. Subjective 78-year-old man with spinal stenosis presents for decompression surgery. AUR postop with LUTS prior to operation for many months. Consulted Urology who correctly insists on knapp and will follow- him as outpatient for TOV. Flomax started. The patient is tolerating p.o., denies pain except with ambulation. He denies chest pain or shortness of breath or any other symptoms at this time. Objective Last 8 Hrs Date Time Temp Pulse Resp B/P (MAP) Pulse Ox O2 Delivery O2 Flow Rate FiO2 01/08/18 15:53 36.8 83 22 149/69 (95) 87 Room Air Physical Exam: GEN: WNWD, in no acute distress, alert and appropriate HEENT: NC/AT, normal sclerae, MMM CARDIO: reg rate, S1/2 heard without m/g/r LUNGS: CTA bilaterally, no crackles, rales or wheezes, good diaphragmatic excursion ABD: soft, non-tender, non-distended, no rebound or guarding BACK: gauze intact over incision site with dressing c/d/i. EXTREMITY: RP and DP palpable 2+ bilat, no LE swelling or edema, extremities are warm and well-perfused NEURO: CN 2-12 grossly intact MUSC: 5/5 strength throughout, no focal deficits SKIN: warm and dry Laboratory Results: 01/08/18 05:45 01/08/18 05:45 Test 01/07/18 08:06 01/07/18 14:55 01/08/18 05:45 01/08/18 11:55 Immature Granulocyte % (Auto) 0.3 % White Blood Count 15.66 K/uL (4.8-10.8) Red Blood Count 3.65 M/uL (4.7-6.1) 3.54 M/uL (4.7-6.1) Hemoglobin 11.6 g/dL (14.0-18.0) Hematocrit 33.0 % (42-52) Mean Corpuscular Volume 90.4 fL (80-100) 92.1 fL (80-100) Mean Corpuscular Hemoglobin 31.8 pg (25-34) 30.8 pg (25-34) Mean Corpuscular Hemoglobin Concent 35.2 g/dl (32-36) 33.4 g/dl (32-36) Platelet Count 177 K/uL (130-400) Mean Platelet Volume 10.1 fL (7.4-10.4) 10.5 fL (7.4-10.4) Neutrophils (%) (Auto) 81.4 % Lymphocytes (%) (Auto) 6.5 % Monocytes (%) (Auto) 11.7 % Eosinophils (%) (Auto) 0.0 % Basophils (%) (Auto) 0.1 % Neutrophils # (Auto) 12.75 K/uL (1.4-6.5) Lymphocytes # (Auto) 1.02 K/uL (1.2-3.4) Monocytes # (Auto) 1.84 K/uL (0.11-0.59) Eosinophils # (Auto) 0.00 K/uL (0-0.5) Basophils # (Auto) 0.01 K/uL (0-0.2) Immature Granulocyte # (Auto) 0.04 K/uL (0.00-0.02) Estimated Average Glucose 160 mg/dl Hemoglobin A1c 7.2 % (4.5-5.6) Magnesium Level 1.8 mg/dl (1.8-2.4) Urine Color YELLOW Urine Appearance CLEAR (CLEAR) Urine pH 6.5 (4.5-7.5) Urine Specific [place] 1.006 (1.000-1.030) Urine Protein NEG (NEG) Urine Glucose (UA) NEG (NEG) Urine Ketones NEG (NEG) Urine Occult Blood 1+ (NEG) Urine Nitrite NEG (NEG) Urine Bilirubin NEG (NEG) Urine Urobilinogen NEG (NEG) Urine Leukocyte Esterase NEG (NEG) Urine WBC (Auto) 0 /hpf (0-5) Urine RBC (Auto) 0-4 /hpf (0-4) Urine Hyaline Casts (Auto) 0 /lpf (0-5) Urine Epithelial Cells (Auto) 0-5 /lpf (0-5) Urine Bacteria (Auto) NEG (NEG) RDW Standard Deviation 44.9 fL (36.4-46.3) RDW Coefficient of Variation 13.2 % (11.5-14.5) Anion Gap 5.0 mmol/L (3-11) Est Creatinine Clear Calc Drug Dose 74.7 ml/min Estimated GFR () 89.8 Estimated GFR (Non- 77.4 BUN/Creatinine Ratio 22.9 (10-20) Calcium Level 8.8 mg/dl (8.5-10.1) Bedside Glucose 102 mg/dl (70-99) Date/Time Source Procedure Growth Status 01/07/18 14:55 Urine,Catheterized Urine Culture - Preliminary NO GROWTH - LESS THAN 1,000 COLONIES/... Resulted Last 24 Hours Test 01/07/18 20:41 01/07/18 21:03 01/08/18 05:45 01/08/18 08:17 Bedside Glucose 125 mg/dl 119 mg/dl 117 mg/dl White Blood Count 11.51 K/uL Red Blood Count 3.54 M/uL Hemoglobin 10.9 g/dL Hematocrit 32.6 % Mean Corpuscular Volume 92.1 fL Mean Corpuscular Hemoglobin 30.8 pg Mean Corpuscular Hemoglobin Concent 33.4 g/dl RDW Standard Deviation 44.9 fL RDW Coefficient of Variation 13.2 % Platelet Count 170 K/uL Mean Platelet Volume 10.5 fL Sodium Level 136 mmol/L Potassium Level 3.9 mmol/L Chloride Level 103 mmol/L Carbon Dioxide Level 28 mmol/L Anion Gap 5.0 mmol/L Blood Urea Nitrogen 22 mg/dl Creatinine 0.95 mg/dl Est Creatinine Clear Calc Drug Dose 74.7 ml/min Estimated GFR () 89.8 Estimated GFR (Non- 77.4 BUN/Creatinine Ratio 22.9 Random Glucose 121 mg/dl Calcium Level 8.8 mg/dl Test 01/08/18 11:55 Bedside Glucose 102 mg/dl Assessment & Plan 78-year-old man with spinal stenosis presents for decompression surgery. AUR postop with LUTS prior to operation for many months. Consulted Urology who correctly insists on knapp and will follow- him as outpatient for TOV. Flomax started. 1. Lumbar decompression with posterior spinal fusion, postop day #2-pain was reported not not be controlled overnight but is more controlled today. Continue management per ortho spine. 2. Acute urinary retention-patient describes issues with voiding at home prior to the operation but is not taking any medications for this. Postvoid residual have been 600+ and multiple straight caths have been performed. Consulted Urology who insists on Knapp now with outpatient TOV, and is starting Flomax. Of note Phenergan and Benadryl were stopped. These agents were not given but have anticholinergic effects which can more worsened urinary retention. 3. CAD-stable, no cardiac symptoms or angina present. Continue medical management with aspirin, beta-kirstie, DAVID inhibitor. Statin not on board per history of intolerance. Plavix was stopped at end of December after 1 year of dual antiplatelet therapy. 4. Hypertension-stable continue atenolol, indapamide, lisinopril. 5. Diabetes type 2-diet controlled. Postoperative blood sugar increased likely as a result of receiving dexamethasone intraoperatively. Continue insulin sliding scale with carb coverage. 6. Expected acute blood loss anemia-likely secondary to blood loss from recent surgery. Stable, no indication for transfusion and no active bleeding. Continue to monitor DVT prophylaxis-SCDs, per orthospine Full code Disposition-likely discharge tomorrow Thank you for this consultation. We will follow the patient with you during their hospital stay. You can reach a member of the [facility] Hospitalist Team 12/05 via pager @ [phone]. Ana Lemon DO [facility] Hospitalist Current Inpatient Medications: Current Inpatient Medications Medications (Trade) Dose Ordered Sig/Ivette Route Start Time Stop Time Status Last Admin Dose Admin Ondansetron HCl (Zofran Inj) 4 mg Q6H PRN IV 01/06/18 12:45 02/05/18 12:44 01/07/18 02:34 4 MG Metoclopramide HCl (Reglan Inj) 10 mg Q6H PRN IV 01/06/18 12:45 02/05/18 12:44 01/07/18 08:05 10 MG Lorazepam (Ativan Tab) 0.5 mg Q8H PRN PO 01/06/18 12:45 02/05/18 12:44 Lorazepam 0.5 mg/ Syringe 0.25 ml @ 1 mls/min Q8H PRN IV 01/06/18 12:45 02/05/18 12:44 Pneumococcal Polysaccharide Vaccine 1 ea PRN PRN N/A 01/06/18 12:45 02/05/18 12:44 Influenza Virus Vacc Triv Types A&B 1 ea PRN PRN N/A 01/06/18 12:45 02/05/18 12:44 Polyethylene (Miralax Powder Packet) 17 gm Q6 PO 01/08/18 06:00 02/07/18 05:59 01/08/18 13:41 17 GM Bisacodyl (Dulcolax Supp) 10 mg DAILY PRN [place] 01/06/18 12:45 02/05/18 12:44 Magnesium Hydroxide (Milk Of Magnesia Susp) 30 ml DAILY PRN PO 01/06/18 12:45 02/05/18 12:44 Hydromorphone HCl (Dilaudid Inj) 0.5-1mg prn moder... Q3H PRN IV 01/07/18 06:00 01/21/18 05:59 Oxycodone HCl (Roxicodone Immediate Rel Tab) 5-10mg prn moderate to sev... Q4H PRN PO 01/07/18 06:00 01/21/18 05:59 01/08/18 15:21 10 MG Acetaminophen (Tylenol Tab) 1,000 mg Q8H PRN PO 01/06/18 12:45 02/05/18 12:44 Acetaminophen 100 ml @ 400 mls/hr Q8H PRN IV 01/06/18 12:45 02/05/18 12:44 Naloxone HCl (Narcan Inj) 0.1 mg Q5M PRN IV 01/06/18 12:45 02/05/18 12:44 Senna/Docusate Sodium (Senokot S Tab) 2 tab HS PO 01/06/18 21:00 02/05/18 20:59 01/07/18 21:17 2 TAB Sodium Biphosphate/ Sodium Phosphate (Fleet Enema) 132 ml ONE PRN W[place] 01/06/18 12:45 02/05/18 12:44 Hydroxyzine HCl (Vistaril Tab) 25 mg Q8H PRN PO 01/06/18 12:45 02/05/18 12:44 Al Hydroxide/Mg Hydroxide (Maalox Susp) 30 ml Q6H PRN PO 01/06/18 12:45 02/05/18 12:44 Famotidine (Pepcid Tab) 20 mg Q12 PRN PO 01/06/18 12:45 02/05/18 12:44 Aspirin (Ecotrin Tab) 81 mg DAILY PO 01/07/18 09:00 02/06/18 08:59 01/08/18 09:12 81 MG Atenolol (Tenormin Tab) 50 mg QAM PO 01/07/18 09:00 02/06/18 08:59 01/08/18 09:13 50 MG Cetirizine HCl (zyrTEC TAB) 10 mg DAILY PRN PO 01/06/18 12:45 02/05/18 12:44 01/08/18 09:12 10 MG Cyclobenzaprine HCl (Flexeril Tab) 10 mg TID PRN PO 01/06/18 12:45 02/05/18 12:44 01/07/18 23:51 10 MG Indapamide (Lozol Tab) 1.25 mg QAM PO 01/07/18 09:00 02/06/18 08:59 Future hold 01/08/18 09:12 1.25 MG Lisinopril (Zestril Tab) 10 mg HS PO 01/06/18 21:00 02/05/18 20:59 01/07/18 21:18 10 MG Nortriptyline HCl (Pamelor Cap) 10 mg HS PO 01/06/18 21:00 02/05/18 20:59 01/07/18 21:17 10 MG Ranitidine HCl (zANTac TAB) 150 mg BID PO 01/06/18 21:00 02/05/18 20:59 01/08/18 10:50 150 MG Temazepam (Restoril Cap) 15 mg HS PRN PO 01/06/18 12:45 02/05/18 12:44 Insulin Aspart (novoLOG ASPART) SLIDING SCALE If C... ACHS SC 01/06/18 17:15 02/05/18 17:14 01/08/18 09:16 2 UNITS Glucose (Glucose 40% Gel) 15-30 GRAMS 15 GRAMS... UD PRN PO 01/06/18 15:15 02/05/18 15:14 Glucose (Glucose Chew Tab) 4-8 Tablets 4 Tabl... UD PRN PO 01/06/18 15:15 02/05/18 15:14 Dextrose (Dextrose 50% 50ML Syringe) 25-50ML OF 50% DW IV FOR... UD PRN IV 01/06/18 15:15 02/05/18 15:14 Glucagon (Glucagon Inj) 1 mg UD PRN SQ 01/06/18 15:15 02/05/18 15:14 Nitroglycerin (Nitrostat Tab) 0.4 mg PRN PRN SL 01/06/18 15:30 02/05/18 15:29 Phenol (Chloraseptic 1.4% Mason) 2 sprays Q4 PRN MT 01/06/18 16:15 02/05/18 16:14 Ketorolac Tromethamine (Toradol Inj) 15 mg Q6H PRN IV. 01/07/18 12:45 01/12/18 12:44 01/08/18 16:51 15 MG Phenazopyridine HCl (Pyridium Tab) 200 mg TID PO 01/07/18 21:00 01/09/18 09:01 01/08/18 13:41 200 MG Lidocaine HCl (Xylocaine Jelly 2%) PRN PRN EXT 01/07/18 22:00 02/06/18 21:59 01/08/18 16:55 15 ML Tamsulosin HCl (Flomax Cap) 0.4 mg HS PO 01/08/18 21:00 02/07/18 20:59
[2018-01-08 19:00] VITALS: O2SAT 90
[2018-01-08 20:54] VITALS: BP 145/74; PULSE 73
[2018-01-08] MEDS: DOCUSATE SODIUM/SENNA 50/8.6MG TAB PO SCH (20:55)
[2018-01-08] MEDS: NORTRIPTYLINE HCL 10 MG CAP PO SCH (20:55)
[2018-01-08] MEDS: LISINOPRIL 10 MG TAB PO SCH (20:55)
[2018-01-08] MEDS ORDERED: TAMSULOSIN HCL 0.4 MG CAP PO SCH (21:00)
[2018-01-08 22:30] VITALS: BP_SYST 151; BP_SYST 161; BP_SYST 165; BP_DIAS 71; BP_DIAS 75; BP_DIAS 81; PULSE 69; PULSE 83; PULSE 86
[2018-01-08 23:26] VITALS: BP 161/69; PULSE 76; TEMP 36.8; O2SAT 88; O2SAT 97
[2018-01-09] MEDS: OXYCODONE HCL IR 5 MG TAB (IMMEDIATE RELEASE) PO PRN ×3 (03:03→13:22)
[2018-01-09] MEDS: POLYETHYLENE (MIRALAX) 17 GM PACK PO SCH ×2 (05:51→12:00)
[2018-01-09 05:53] VITALS: O2SAT 95
[2018-01-09 07:36] VITALS: BP 151/73; PULSE 92; TEMP 36.7; O2SAT 92
[2018-01-09] MEDS: RANITIDINE HCL 150 MG TAB PO SCH (08:41)
[2018-01-09] MEDS: CETIRIZINE HCL 10 MG TAB PO PRN (08:41)
[2018-01-09] MEDS: ASPIRIN 81 MG ECTAB PO SCH (08:42)
[2018-01-09] MEDS: INDAPAMIDE 1.25 MG TAB PO SCH (08:42)
[2018-01-09] MEDS: PHENAZOPYRIDINE HCL 200 MG TAB PO SCH (08:42)
[2018-01-09] MEDS: INSULIN ASPART 100 UNITS/ML 3 ML PEN SC SCH ×2 (08:56→13:17)
--- NOTE | 2018-01-09 10:28 | Progress Note ---
Subjective Date of Service: Jan 09, 2018. Subjective Pt evaluation today including: conversation w/ patient, chart review, lab review Voiding: knapp catheter in place (patent, draining clear, orange urine) 78 yo male with post-op UR. Knapp catheter replaced yesterday. Draining orange urine. The pt did receive Pyridium this morning. Reports he is tolerating the knapp catheter well. Flomax has been initiated. No evidence for orthostasis. UC&S is negative. He c/o constipation. States he would like to have a BM prior to going home. Review of Systems Constitutional: No fever, No chills Respiratory: No shortness of breath Cardiac: No chest pain Abdomen: + constipation, No pain, No nausea, No vomiting Musculoskeletal: + problem reported (back pain ) Male : No hematuria Heme: No abnormal bleeding/bruising Objective Vital Signs Date Time Temp Pulse Resp B/P (MAP) Pulse Ox O2 Delivery O2 Flow Rate FiO2 01/09/18 07:36 36.7 92 16 151/73 (99) 92 Room Air 01/09/18 07:20 Room Air 01/09/18 05:53 95 Room Air 01/08/18 23:30 Nasal Cannula 2.0 01/08/18 23:26 97 Nasal Cannula 2.0 01/08/18 23:26 36.8 76 14 161/69 (99) 88 Room Air 01/08/18 22:30 69 151/71 (97) 86 165/81 (109) 83 161/75 (103) 01/08/18 20:54 73 145/74 (97) 01/08/18 19:00 90 Room Air 01/08/18 15:53 36.8 83 22 149/69 (95) 87 Room Air 01/08/18 15:20 Room Air Physical Exam General Appearance: no apparent distress Eyes: normal inspection ENT: hearing grossly normal Neck: no JVD Respiratory/Chest: no respiratory distress, no accessory muscle use Cardiovascular: no JVD Extremities: normal inspection Neurologic/Psychiatric: alert, normal mood/affect, oriented x 3 Skin: normal color Laboratory Results Last 24 Hours Test 01/08/18 11:55 01/08/18 17:30 01/08/18 20:33 01/09/18 08:15 Bedside Glucose 102 mg/dl 126 mg/dl 169 mg/dl 114 mg/dl Assessment and Plan A/P: Post-op urinary retention AFVSS. Continue knapp catheter. Will plan for outpatient trial of void next week. Will arrange. Continue Flomax indefinitely. I have encouraged he try the Dulcolax suppository he has ordered for constipation. No further management at this time. Will arrange for outpatient f/u. Recall PRN issues. Thanks for allowing us to participate in this pt's care. Discharge planning: home
[2018-01-09 11:04] VITALS: BP 151/73; PULSE 92; TEMP 36.7; O2SAT 92
--- NOTE | 2018-01-09 11:32 | Discharge Summary ---
Orthopedic Discharge Summary Admission Date/Reason Jan 06, 2018 at 09:50 Spinal Stenosis. Discharge Date/Disposition Jan 09, 2018 Home Diagnosis Principal Diagnosis: Lumbar spinal stenosis Admission Physical Exam As per Admitting History & Physical. Hospital Course Patient underwent multilevel lumbar decompression fusion tolerated this well was taken to the orthopedic floor postoperatively. Postop day #1 he was up and amatory progressed appropriately through postop day #2 social and postop day #3 was discharged home. Discharge orders and instructions can be found in the chart for further review. Discharge Instructions Please refer to the electronic Patient Visit Report (Discharge Instructions) for additional information.
[2018-01-09] MEDS ORDERED: TAMS0.4C38 PO (19:05)
--- NOTE | 2018-01-09 19:09 | Progress Note ---
Progress Note Date of Service Jan 09, 2018. Progress Note PT was discharged without Tamsulosin. SEnt new script to [facility] pharmacy on file. Pt was notified by phone and is aware to pick it up. DO Ion
== END 2018-01-09 14:14 | disposition home health service (06) | DRG 454 ==
LOC: C.ACU 08:19 → C.3E 09:50 → ENRESERV 13:55
PROVIDERS: ADMIT Orthopaedic Surgery Orthopaedic Surgery of the Spine; ATTEND Orthopaedic Surgery Orthopaedic Surgery of the Spine
PROC: 0SG10J1 Fusion of 2 or more Lumbar Vertebral Joints with Synthetic Substitute, Posterior Approach, Posterior Column, Open Approach (ICD-10-PCS; principal; 2018-01-06 10:15)
PROC: 0ST40ZZ Resection of Lumbosacral Disc, Open Approach (ICD-10-PCS; principal; 2018-01-06 10:15)
PROC: 0SG3071 Fusion of Lumbosacral Joint with Autologous Tissue Substitute, Posterior Approach, Posterior Column, Open Approach (ICD-10-PCS; principal; 2018-01-06 10:15)
PROC: 0SG30AJ Fusion of Lumbosacral Joint with Interbody Fusion Device, Posterior Approach, Anterior Column, Open Approach (ICD-10-PCS; principal; 2018-01-06 10:15)
DX: M48.061 Spinal stenosis, lumbar region without neurogenic claudication (principal); E87.1 Hypo-osmolality and hyponatremia; D62 Acute posthemorrhagic anemia; R33.9 Retention of urine, unspecified; E11.65 Type 2 diabetes mellitus with hyperglycemia; T38.0X5A Adverse effect of glucocorticoids and synthetic analogues, initial encounter; K59.00 Constipation, unspecified; I11.9 Hypertensive heart disease without heart failure; I25.10 Atherosclerotic heart disease of native coronary artery without angina pectoris; E78.5 Hyperlipidemia, unspecified; Z79.899 Other long term (current) drug therapy; Z79.82 Long term (current) use of aspirin; Z95.5 Presence of coronary angioplasty implant and graft; Z87.891 Personal history of nicotine dependence; Z88.8 Allergy status to other drugs, medicaments and biological substances

== ENCOUNTER 2018-01-12 18:43 | Inpatient (IN) | payer BC, OTHER ==
[~2018-01-12] VITALS: Ht 185.4 cm; Wt 83.1 kg
[~2018-01-12 18:43] MED LIST changes: -ASPI325T39 PO; +ASPI81TA28 PO; -ATROPINE SULFATE 0.1 MG/ML 5ML SYR IV PRN; -CEFAZOLIN 2000MG IV PUSH 15 ML IV SCH; -EpHEDrine SULFATE INJ 50 MG/ML AMP IV PRN; -HYDROmorphone INJ 1 MG/ML SYR IV PRN; -LACTATED RINGER'S 1000ML 1,000 ML IV SCH; -ONDANSETRON INJ 2 MG/ML 2 ML VIAL IV PRN; +RXC5 PO; +TAMS0.4C38 PO
[2018-01-12] MEDS ORDERED: SODIUM CHLORIDE 0.9% 1000ML 1,000 ML IV STA ×2 (19:55→21:01)
--- NOTE | 2018-01-12 20:02 | EMERGENCY ROOM VISIT NOTE ---
History Report prepared by Adrián: Brayan Harrison Under the Supervision of: Dr. Michael Cheng M.D. First contact with patient: 19:47 Chief Complaint: URINARY SYMPTOMS Stated Complaint: BURING WHEN URINATING,HAS LAU Nursing Triage Summary: pt has lau cath in. lau placed "a couple days" after back surgery on 01/06. reports decreased output today and pt c/o discomfort. History of Present Illness The patient is a 78 year old male who presents to the Emergency Room with complaints of urinary symptoms that began prior to arrival. He reports limited urinary output from his Lau catheter and nausea. Per , he was slightly delusional earlier today and was waving to people who were not present. Of note , his catheter is supposed to be removed in 5 days. He had back surgery on 2017 and was not given any antibiotics. Per , he is not overdosing on pain medication; however, he does not like taking the Oxycodone. Per the , the patient denies leg swelling. Source of History: patient, spouse/significant other Onset: SURFACE SUPPLY BREATHING APPARATUS Position: pelvis Symptom Intensity: pain rated as 8/10 Quality: pressure Timing: constant Associated Symptoms: + nausea, + urinary symptoms (limited urinary output) Note: Patient's denies leg swelling. Patient had some delusions earlier today. Review of Systems See HPI for pertinent positives & negatives. A total of 10 systems reviewed and were otherwise negative. Past Medical & Surgical Medical Problems: (1) Lumbar stenosis with neurogenic claudication Social History Smoking Status: Never Smoker Marital Status: Occupation Status: retired Current/Historical Medications Scheduled Aspirin (Aspirin Ec), 81 MG PO QPM Atenolol (Tenormin), 50 MG PO QAM Indapamide (Lozol), 1.25 MG PO QAM Lisinopril (Lisinopril), 10 MG PO HS Nitroglycerin (Nitrostat), 0.4 MG UT PRN Nortriptyline (Pamelor), 10 MG PO HS Ranitidine (Zantac), 150 MG PO BID Tamsulosin Hcl (Flomax), 0.4 MG PO HS Scheduled PRN Cetirizine (Zyrtec), 10 MG PO DAILY PRN for PRN Cyclobenzaprine Hcl (Flexeril), 10 MG PO TID PRN for Muscle Spasms Fluocinonide (Fluocinonide), 1 APPLN TOP DAILY PRN for PRN Oxycodone HCl (Oxycodone HCl), 5-10 MG PO Q4H PRN for Moderate - severe pain Temazepam (Restoril), 15 MG PO HS PRN for PRN [Humalog ], 1 DOSE SQ TIDM PRN for SLIDING SCALE Allergies Coded Allergies: No Known Allergies (Unverified , 12/16/17) Physical Exam Vital Signs Date Time Temp Pulse Resp B/P (MAP) Pulse Ox O2 Delivery O2 Flow Rate FiO2 01/12/18 21:27 81 18 116/61 99 Room Air 01/12/18 18:54 36.7 87 18 104/60 98 Room Air Physical Exam GENERAL: Patient is slightly anxious appearing and in minimal distress. EYES: No scleral icterus, unremarkable pupils. ENT: Dry mucous membranes, no nasal congestion. NECK: No masses appreciated, no meningismus, trachea is midline. RESPIRATORY: No dyspnea. Clear to auscultation and equal bilaterally. No wheeze , no rhonchi. CARDIOVASCULAR: Regular rate and rhythm. No murmurs, rubs, gallops appreciated. GASTROINTESTINAL: Abdomen soft, nontender, no peritonitis. Bowel sounds positive. No masses appreciated. BACK: Well healing lumbar surgical scar. No fluctuance or erythema. No midline tenderness, no CVA tenderness EXTREMITIES: Normal motion all extremities, no cyanosis, no edema. NEUROLOGIC: Alert and oriented, no acute motor or sensory deficits, no focal weakness, cranial nerves grossly intact. SKIN: No rash, no jaundice, no diaphoresis. Medical Decision & Procedures Laboratory Results 01/12/18 20:11 Red Blood Count 3.57, Mean Corpuscular Volume 89.4, Mean Corpuscular Hemoglobin 31.1, Mean Corpuscular Hemoglobin Concent 34.8, Mean Platelet Volume 10.3, Neutrophils (%) (Auto) 72.1, Lymphocytes (%) (Auto) 11.4, Monocytes (%) (Auto) 13.8, Eosinophils (%) (Auto) 1.8, Basophils (%) (Auto) 0.1, Neutrophils # (Auto ) 8.64, Lymphocytes # (Auto) 1.36, Monocytes # (Auto) 1.65, Eosinophils # (Auto ) 0.21, Basophils # (Auto) 0.01 01/12/18 20:11 Test 01/12/18 20:11 White Blood Count 11.97 K/uL (4.8-10.8) Red Blood Count 3.57 M/uL (4.7-6.1) Hemoglobin 11.1 g/dL (14.0-18.0) Hematocrit 31.9 % (42-52) Mean Corpuscular Volume 89.4 fL (80-100) Mean Corpuscular Hemoglobin 31.1 pg (25-34) Mean Corpuscular Hemoglobin Concent 34.8 g/dl (32-36) Platelet Count 287 K/uL (130-400) Mean Platelet Volume 10.3 fL (7.4-10.4) Neutrophils (%) (Auto) 72.1 % Lymphocytes (%) (Auto) 11.4 % Monocytes (%) (Auto) 13.8 % Eosinophils (%) (Auto) 1.8 % Basophils (%) (Auto) 0.1 % Neutrophils # (Auto) 8.64 K/uL (1.4-6.5) Lymphocytes # (Auto) 1.36 K/uL (1.2-3.4) Monocytes # (Auto) 1.65 K/uL (0.11-0.59) Eosinophils # (Auto) 0.21 K/uL (0-0.5) Basophils # (Auto) 0.01 K/uL (0-0.2) RDW Standard Deviation 41.1 fL (36.4-46.3) RDW Coefficient of Variation 12.7 % (11.5-14.5) Immature Granulocyte % (Auto) 0.8 % Immature Granulocyte # (Auto) 0.10 K/uL (0.00-0.02) Anion Gap 7.0 mmol/L (3-11) Est Creatinine Clear Calc Drug Dose 33.3 ml/min Estimated GFR () 33.8 Estimated GFR (Non- 29.2 BUN/Creatinine Ratio 15.8 (10-20) Calcium Level 9.4 mg/dl (8.5-10.1) Laboratory results as reviewed by me. Medications Administered Medications (Trade) Dose Ordered Sig/Ivette Route Start Time Stop Time Status Last Admin Dose Admin Sodium Chloride 1,000 ml @ 999 mls/hr Q1H1M STAT IV 01/12/18 19:55 01/12/18 20:55 DC 01/12/18 19:55 999 MLS/HR Sodium Chloride 1,000 ml @ 100 mls/hr Q10H STAT IV 01/12/18 21:01 01/13/18 07:00 01/11/18 21:01 100 MLS/HR ED Course 1946: The patient was evaluated in room A4B. A complete history and physical exam was performed. 2029: I checked on the patient and he is resting comfortably. Nursing notes they flushed out the Lau with 500 ml of normal saline. 2100: I checked on the patient and his notes he looks slightly better. He was not talking before I walked into the room. 2120: Discussed the patient's case with Dr. Chava Agosto. The patient will be evaluated for further treatment and disposition. 2129: Upon reevaluation, the patient is resting comfortably. Discussed results and treatment plan with the patient. He verbalized understanding and agreement with the treatment plan. The patient will be evaluated for further management. Medical Decision 78 yr old male arrives for evaluation of no uop all day along with several brief episodes of seeing things that are not there. He has evidence of small amount very concentrated urine in lau bag which notes has been there all day. He is dehydrated appearing and dry. US bedside by me without any urine in bladder. No headache, confusion here nor evidence meningitis. I do not feel this is cerebellar related thus hold on imaging brain. Given 1 L NSS bolus without UOP in to lau thus further NSS infusion started. He is in acute renal failure by labs with Cr from 0.9 to 2.1 today along with BUN elevation. With no UOP even after 1 L NSS, acute renal failure and fact he has episodic confusion/hallucinations at home it seems reasonable bringing in for further work-up and evaluation. and patient comfortable with this plan. I do not feel that he is acute uretal blockage and without abdominal pain I do not feel imaging required currently. Medication Reconcilliation Current Medication List: was personally reviewed by me Blood Pressure Screening Patient's blood pressure: Normal blood pressure Blood pressure disposition: Did not require urgent referral Consults Time Called: 2117 Consulting Physician: Dr. Chava Agosto Returned Call: 2120 Discussed the patient's case. The patient will be evaluated for further treatment and disposition. Impression Primary Impression: Acute renal failure Additional Impressions: Anuria Hallucination Scribe Attestation The scribe's documentation has been prepared under my direction and personally reviewed by me in its entirety. I confirm that the note above accurately reflects all work, treatment, procedures, and medical decision making performed by me. Departure Information Referrals Oralia Rojas (PCP) Patient Instructions My [facility] Problem Qualifiers
[2018-01-12 20:29] LABS: BASO % 0.1 %; BASO ABS # 0.01 K/uL (0-0.2); EOS % 1.8 %; EOS ABS # 0.21 K/uL (0-0.5); HEMATOCRIT 31.9 % (42-52); HEMOGLOBIN 11.1 g/dL (14.0-18.0); LYMPH % 11.4 %; LYMPH ABS # 1.36 K/uL (1.2-3.4); MEAN CELL VOLUME 89.4 fL (80-100); MEAN CORPUSCULAR HEMOGLOBIN 31.1 pg (25-34); MEAN CORPUSCULAR HGB CONC 34.8 g/dl (32-36); MEAN PLATELET VOLUME 10.3 fL (7.4-10.4); MONO % 13.8 %; MONO ABS # 1.65 K/uL (0.11-0.59); NEUT % 72.1 %; NEUT ABS # 8.64 K/uL (1.4-6.5); PLATELET COUNT 287 K/uL (130-400); RED CELL DISTRIBUTION WIDTH CV 12.7 % (11.5-14.5); RED CELL DISTRIBUTION WIDTH SD 41.1 fL (36.4-46.3); WHITE BLOOD COUNT 11.97 K/uL (4.8-10.8)
[2018-01-12 20:49] LABS: CALCIUM 9.4 mg/dl (8.5-10.1); CREATININE 2.13 mg/dl (0.60-1.40); POTASSIUM 4.1 mmol/L (3.5-5.1)
[2018-01-12] MEDS ORDERED: ONDANSETRON INJ 2 MG/ML 2 ML VIAL IV PRN (22:00)
[2018-01-12] MEDS ORDERED: ACETAMINOPHEN 325 MG TAB PO PRN (22:00)
[2018-01-12] MEDS ORDERED: HYDROCODONE/ACETAMIN 5/325MG TAB PO PRN (22:00)
[2018-01-12] MEDS ORDERED: HMLIS SQ (22:01)
[2018-01-12] MEDS ORDERED: HYDR-5688 PO (22:01)
[2018-01-12] MEDS ORDERED: GLUCOSE 10 TABS/TUBE PO PRN (22:30)
[2018-01-12] MEDS ORDERED: DEXTROSE 50% 50 ML SYR IV PRN (22:30)
[2018-01-12] MEDS ORDERED: CYCLOBENZAPRINE HCL 10 MG TAB PO PRN (22:30)
[2018-01-12] MEDS ORDERED: GLUCOSE 40% GEL 15 GM TUBE PO PRN (22:30)
[2018-01-12] MEDS ORDERED: GLUCAGON FOR INJ 1 MG VIAL SQ PRN (22:30)
[2018-01-12 22:53] VITALS: O2SAT 98
[2018-01-12 23:10] VITALS: BP 127/61; PULSE 74; TEMP 36.7; O2SAT 92
--- NOTE | 2018-01-12 23:11 | History and Physical ---
History & Physical Date & Time of Service: Jan 12, 2018 ~ 21:15 Chief Complaint: Decreased urine output, hallucinations Primary Care Physician: Oralia Rojas History of Present Illness 78-year-old male who presents to the ER with decreased urine output and hallucinations. Patient was recently admitted to [facility] 01/06 through 12/20/22 for lumbar decompression surgery. Postoperative course was complicated by urinary retention requiring Knapp placement. Patient was evaluated by urology and also started on Flomax. Patient reports that since being home, he has had very poor oral intake. He reports difficulty swallowing. He notes this is a long- standing problem for him however has been worse since his surgery. He denies ever having any EGD in the past. Today patient reports that while laying in bed he was hallucinating seeing people that were not there and was also talking to them. had noticed that his urine output from his Knapp had significantly decreased today. Patient denies fever and chills. He reports his postoperative back pain is well controlled with Vicodin. He denies abdominal pain, nausea, vomiting, and diarrhea. No chest pain or shortness of breath. He denies lightheadedness, dizziness, diaphoresis, and syncopal events. In the ED, patient's Knapp catheter flushed without difficulty however there is very little return of urine. Patient received approximately 1500 cc of IVF prior to my exam and Knapp is now draining dark yellow urine. Creatinine is found to be 2.1. Vital signs are stable. Past Medical/Surgical History Medical Problems: (1) CAD (coronary artery disease) Permanent Comment: NATALIYA to Cx 11/2016 - Xience stent x 4 to LAD Status: Chronic (2) Depression Status: Chronic (3) DM type 2 (diabetes mellitus, type 2) Status: Chronic (4) GERD (gastroesophageal reflux disease) Status: Chronic (5) HTN (hypertension) Status: Chronic Surgical Problems: (1) History of appendectomy Status: Chronic (2) History of cholecystectomy Status: Chronic (3) History of tonsillectomy and adenoidectomy Status: Chronic (4) S/P hemilaminotomy Status: Chronic (5) Status post lumbar spine surgery for decompression of spinal cord Status: Chronic Family History Diabetes mellitus SISTER Social History Smoking Status: Former Smoker Alcohol Use: none Immunizations History of Influenza Vaccine: Yes Influenza Vaccine Date: Sep 26, 2017 History of Tetanus Vaccine?: Yes Tetanus Immunization Date: Dec 25, 2012 History of Pneumococcal: Yes Pneumococcal Date: Mar 20, 2016 Allergies Coded Allergies: No Known Allergies (Unverified , 12/16/17) Home Medications Scheduled Aspirin (Aspirin Ec), 81 MG PO QPM Atenolol (Tenormin), 50 MG PO QAM Indapamide (Lozol), 1.25 MG PO QAM Lisinopril (Lisinopril), 10 MG PO HS Nitroglycerin (Nitrostat), 0.4 MG UT PRN Nortriptyline (Pamelor), 10 MG PO HS Ranitidine (Zantac), 150 MG PO BID Tamsulosin Hcl (Flomax), 0.4 MG PO HS Scheduled PRN Cetirizine (Zyrtec), 10 MG PO DAILY PRN for PRN Cyclobenzaprine Hcl (Flexeril), 10 MG PO TID PRN for Muscle Spasms Fluocinonide (Fluocinonide), 1 APPLN TOP DAILY PRN for PRN Hydrocodone/Acetaminophen 5MG/325MG ([place] 5MG/325MG), 1 TABLET PO Q6H PRN for Pain Insulin Human Lispro (Humalog Kwikpen), SQ TID PRN for sliding scale Oxycodone HCl (Oxycodone HCl), 5-10 MG PO Q4H PRN for Moderate - severe pain Review of Systems ROS per HPI, all other systems reviewed and negative Physical Exam Vital Signs Date Time Temp Pulse Resp B/P (MAP) Pulse Ox O2 Delivery O2 Flow Rate FiO2 01/12/18 22:53 84 20 121/74 98 01/12/18 21:27 81 18 116/61 99 Room Air 01/12/18 18:54 36.7 87 18 104/60 98 Room Air General Appearance: WD/WN, no apparent distress Head: normocephalic, atraumatic Eyes: normal inspection, EOMI, sclerae normal ENT: hearing grossly normal, + pertinent finding (Mucous membranes dry) Neck: supple, no JVD, trachea midline Respiratory/Chest: lungs clear, normal breath sounds, no respiratory distress Cardiovascular: regular rate, rhythm, no edema, normal peripheral pulses, + systolic murmur Abdomen/GI: normal bowel sounds, non tender, soft, no organomegaly Genitourinary - Male: + pertinent finding (Knapp in place draining dark yellow urine) Back: + pertinent finding (S/P recent back surgery, surgical incision well approximated without surrounding erythema or drainage) Extremities/Musculoskelatal: normal inspection, no calf tenderness, normal capillary refill Neurologic/Psych: no motor/sensory deficits, alert, normal mood/affect, oriented x 3 Skin: normal color, warm/dry Diagnostics Laboratory Results Results Past 24 Hours Test 01/12/18 20:11 01/12/18 21:49 Range/Units White Blood Count 11.97 4.8-10.8 K/uL Red Blood Count 3.57 4.7-6.1 M/uL Hemoglobin 11.1 14.0-18.0 g/dL Hematocrit 31.9 42-52 % Mean Corpuscular Volume 89.4 80-100 fL Mean Corpuscular Hemoglobin 31.1 25-34 pg Mean Corpuscular Hemoglobin Concent 34.8 32-36 g/dl Platelet Count 287 130-400 K/uL Mean Platelet Volume 10.3 7.4-10.4 fL Neutrophils (%) (Auto) 72.1 % Lymphocytes (%) (Auto) 11.4 % Monocytes (%) (Auto) 13.8 % Eosinophils (%) (Auto) 1.8 % Basophils (%) (Auto) 0.1 % Neutrophils # (Auto) 8.64 1.4-6.5 K/uL Lymphocytes # (Auto) 1.36 1.2-3.4 K/uL Monocytes # (Auto) 1.65 0.11-0.59 K/uL Eosinophils # (Auto) 0.21 0-0.5 K/uL Basophils # (Auto) 0.01 0-0.2 K/uL RDW Standard Deviation 41.1 36.4-46.3 fL RDW Coefficient of Variation 12.7 11.5-14.5 % Immature Granulocyte % (Auto) 0.8 % Immature Granulocyte # (Auto) 0.10 0.00-0.02 K/uL Sodium Level 130 136-145 mmol/L Potassium Level 4.1 3.5-5.1 mmol/L Chloride Level 92 98-107 mmol/L Carbon Dioxide Level 32 21-32 mmol/L Anion Gap 7.0 3-11 mmol/L Blood Urea Nitrogen 34 7-18 mg/dl Creatinine 2.13 0.60-1.40 mg/dl Est Creatinine Clear Calc Drug Dose 33.3 ml/min Estimated GFR () 33.8 Estimated GFR (Non- 29.2 BUN/Creatinine Ratio 15.8 10-20 Random Glucose 188 70-99 mg/dl Calcium Level 9.4 8.5-10.1 mg/dl Urine Color DK YELLOW Urine Appearance CLEAR CLEAR Urine pH 5.5 4.5-7.5 Urine Specific [place] 1.017 1.000-1.030 Urine Protein TRACE NEG Urine Glucose (UA) NEG NEG Urine Ketones TRACE NEG Urine Occult Blood 2+ NEG Urine Nitrite NEG NEG Urine Bilirubin NEG NEG Urine Urobilinogen NEG NEG Urine Leukocyte Esterase TRACE NEG Urine WBC (Auto) 5-10 0-5 /hpf Urine RBC (Auto) >30 0-4 /hpf Urine Hyaline Casts (Auto) >30 0-5 /lpf Urine Epithelial Cells (Auto) >30 0-5 /lpf Urine Bacteria (Auto) NEG NEG Urine Renal Epithelial Cells 0-5 0-5 /lpf Urine Pathogenic Casts 1-5 GRANULAR CASTS 0 /lpf Microbiology Results 01/12/18 Urine Culture, Received Pending Impression Assessment and Plan [place] URINARY RETENTION -Admit to [facility] -Patient presenting with decreased urine output and hallucinations; recently admitted to [facility] for lumbar decompression fusion, postoperative course complicated by urinary retention and had Knapp placed and started on Flomax -On presentation, creatinine 2.1 (baseline ~ 0.9) -UA does not appear infected -Patient reports very poor oral intake secondary to difficulty swallowing -Knapp catheter flushed well in the ED, and urine output responded to administration of IVF -Likely prerenal [place] due to poor p.o. intake in combination with DAVID inhibitor and thiazide diuretic use which will be placed on hold -Will continue with generous IVF, if renal functions do not improve by tomorrow , low threshold for nephrology consult -Continue Knapp and Flomax, follow-up with urology as an outpatient DYSPHASIA -GI consult -No history of EGD HISTORY OF CAD -Stable, no reports of chest pain -Continue ASA and beta-kirstie -Intolerant to statins DIABETES MELLITUS -Hgb A1c 7.2 12/2017 -Continue SSI DEPRESSION -Continue duloxetine DVT PROPHYLAXIS -SCDs due to recent back surgery DISPOSITION -In my clinical judgment this beneficiary meets acute admission criteria, established by [facility], that includes being hospitalized through two midnights. Attending Physician Dr. Agosto Addendum I have seen and assessed the patient with DBAS Carmen Sharpe and I agree with the assessment and plan as above and would like to add that this is a patient with recent lumbar decompression fusion, and subsequent urinary retention and knapp who presents with history of confusion (hallucinations?), decreased urinary output with knapp, and acute kidney injury. Initially there was difficulty in obtain the UA from the knapp but then after knapp care, the urine flow improved. On physical exam, patient reported of having pain during palpation of bladder. However urinalysis was without evidence of infection. No apparent costovertebral angle tenderness on exam. There is pain on palpation at the middle of lower back where lumbar surgery was performed. Will order KUB to assess for any hydronephrosis. Will request urology consultation. In addition patient also reporting what may be chronic dysphagia as he reports when eating he needs additional water boluses to have food go down without sticking sensation of the throat. My colleague Annemarie has requested GI consultation for dysphagia evaluation. Will add speech and swallow evaluation. Resuscitation Status VTE Prophylaxis Will order VTE Prophylaxis: Yes
[2018-01-12] MEDS: SODIUM CHLORIDE 0.9% 1000ML 1,000 ML IV SCH (23:16)
[2018-01-13 00:32] VITALS: Ht 185.4 cm; Wt 83.1 kg
[2018-01-13] MEDS: SODIUM CHLORIDE 0.9% 1000ML 1,000 ML IV SCH ×3 (05:57→21:32)
[2018-01-13] MEDS ORDERED: CYM/30 PO ×2 (06:49→08:47)
[2018-01-13 07:00] VITALS: BP 117/67; PULSE 67; TEMP 36.6; O2SAT 92
[2018-01-13 07:43] LABS: HEMATOCRIT 28.3 % (42-52); HEMOGLOBIN 9.7 g/dL (14.0-18.0); MEAN CELL VOLUME 89.8 fL (80-100); MEAN CORPUSCULAR HEMOGLOBIN 30.8 pg (25-34); MEAN CORPUSCULAR HGB CONC 34.3 g/dl (32-36); MEAN PLATELET VOLUME 9.8 fL (7.4-10.4); PLATELET COUNT 223 K/uL (130-400); RED CELL DISTRIBUTION WIDTH CV 12.8 % (11.5-14.5); RED CELL DISTRIBUTION WIDTH SD 41.4 fL (36.4-46.3); WHITE BLOOD COUNT 9.47 K/uL (4.8-10.8)
[2018-01-13 08:20] LABS: CALCIUM 8.6 mg/dl (8.5-10.1); CREATININE 1.09 mg/dl (0.60-1.40); POTASSIUM 3.6 mmol/L (3.5-5.1)
--- NOTE | 2018-01-13 08:50 | Gastrointestinal Consultation ---
Gastrointestinal Consultation Date of Consultation: Jan 13, 2018 Attending Physician: Dr. Agosto Consulting Physician: Dr. Malone Reason for Consultation: Dysphagia History of Present Illness Patient is a 78 year old male patient of Dr. Bhakta with a hx of CAD, HTN, DM -2, who underwent lumbar spine surgery on 01/13/18 returned to the hospital yesterday for confusion and difficulty voiding. GI is consulted for dysphagia. Regarding the dysphagia, he has had this for approximately one year and it may have worsened recently though he is unsure. He describes it as food getting stuck in the throat, sometimes causing him to choke/gag when he is trying to swallow. It occurs more with dry foods and he tends to hesham his foods with a sip of water. He does not have any feeling of food getting stuck in the chest. On arrival, Cr was 2.1, up from his baseline discharge Cr on 01/08 of 0.9, Hb was 11, up from 10 on discharge on 01/08. CXR is normal and UA with RBCs and 5- 10 WBCs, trace ketones and trace leukocyte esterase. He is mentating well, oriented to date, time, place, able to tell me details regarding his symptoms. He denies any difficulty eating his breakfast this morning, which he was doing when I arrived. He does not believe that he has ever undergone EGD or other testing for the dysphagia. Past Medical/Surgical History Past Medical History: 1. CAD 2. HTN 3. Depression 4. DM-2 5. GERD Past Surgical History: (1) History of appendectomy (2) History of cholecystectomy (3) History of tonsillectomy and adenoidectomy (4) S/P hemilaminotomy (5) Status post lumbar spine surgery for decompression of spinal cord Family History Diabetes mellitus SISTER Social History Smoking Status: Former Smoker Marital Status: Housing Status: lives with family Occupation Status: retired Allergies Coded Allergies: No Known Allergies (Unverified , 12/16/17) Current Medications Home Meds and Scripts Medications Dose Route/Sig Max Daily Dose Days Date Category Cymbalta (Duloxetine Hcl) 30 Mg Cap 30 Mg PO DAILY 01/13/18 Reported Humalog Kwikpen (Insulin Human Lispro) 100 Units/Ml Inj SQ TID PRN 01/12/18 Reported [place] 5MG/325MG (Acetaminophen/Hydrocodone Bitart) Tab 1 Tablet PO Q6H PRN 01/12/18 Reported Flomax (Tamsulosin Hcl) 0.4 Mg Cap 0.4 Mg PO HS 30 01/09/18 Rx Oxycodone HCl 5 Mg Tab 5-10 Mg PO Q4H PRN 30 01/08/18 Rx Aspirin Ec (Aspirin) 81 Mg Tab 81 Mg PO QPM 01/06/18 Reported Nitrostat (Nitroglycerin) 0.4 Mg Tab 0.4 Mg UT PRN 12/16/17 Reported Zantac (Ranitidine HCl) 150 Mg Tab 150 Mg PO BID 12/16/17 Reported Lozol (Indapamide) 1.25 Mg Tab 1.25 Mg PO QAM 12/16/17 Reported Pamelor (Nortriptyline HCl) 10 Mg Cap 10 Mg PO HS 12/16/17 Reported Zyrtec (Cetirizine HCl) 10 Mg Tab 10 Mg PO DAILY PRN 12/16/17 Reported Tenormin (Atenolol) 50 Mg Tab 50 Mg PO QAM 12/16/17 Reported Lisinopril 10 Mg Tab 10 Mg PO HS 12/16/17 Reported Fluocinonide 0.05 % [place] 1 Appln TOP DAILY PRN 30 12/16/17 Reported Flexeril (Cyclobenzaprine Hcl) 10 Mg Tab 10 Mg PO TID PRN 12/16/17 Reported Review of Systems Constitutional: No fever, No chills, No sweats, No weight loss, No weakness Eyes: No eye pain, No redness ENT: No sore throat, No trouble swallowing, No pain on swallowing Respiratory: No cough, No wheezing, No shortness of breath, No dyspnea on exertion Cardiac: No chest pain, No edema, No palpitations Abdomen: + see HPI, + dysphagia, No pain, No nausea, No vomiting, No diarrhea, No constipation, No GI bleeding Neuro: + problem reported (acute confusion - yesterday), No memory loss, No weakness, No numbness/tingling, No vertigo, No balance problems Psych: No depression symptoms, No anxiety, No insomnia Heme: No abnormal bleeding/bruising, No night sweats Endo: No excessive thirst, No excessive urination Skin: No rash, No itch, No new/changing skin lesions, No jaundice Physical Exam Date Time Temp Pulse Resp B/P (MAP) Pulse Ox O2 Delivery O2 Flow Rate FiO2 01/13/18 08:17 Room Air 01/13/18 07:00 36.6 67 17 117/67 (84) 92 Room Air 01/13/18 00:47 Room Air 01/13/18 00:32 Room Air 01/12/18 23:10 36.7 74 18 127/61 (83) 92 Room Air 01/12/18 22:53 84 20 121/74 98 01/12/18 21:27 81 18 116/61 99 Room Air 01/12/18 18:54 36.7 87 18 104/60 98 Room Air General Appearance: no apparent distress Eyes: normal inspection, EOMI Neck: supple, no adenopathy, thyroid normal, no JVD Respiratory/Chest: chest non-tender, lungs clear, normal breath sounds, no accessory muscle use Cardiovascular: regular rate, rhythm, no JVD, no murmur, + systolic murmur (2-3 /6) Abdomen: normal bowel sounds, non tender, soft, no organomegaly Extremities: normal inspection, no pedal edema, normal capillary refill Neurologic/Psych: alert, normal mood/affect, oriented x 3 Skin: normal color, no jaundice, warm/dry, no rash Laboratory Results Last 24 Hours Test 01/12/18 20:11 01/12/18 21:49 01/13/18 00:04 01/13/18 07:29 White Blood Count 11.97 K/uL 9.47 K/uL Red Blood Count 3.57 M/uL 3.15 M/uL Hemoglobin 11.1 g/dL 9.7 g/dL Hematocrit 31.9 % 28.3 % Mean Corpuscular Volume 89.4 fL 89.8 fL Mean Corpuscular Hemoglobin 31.1 pg 30.8 pg Mean Corpuscular Hemoglobin Concent 34.8 g/dl 34.3 g/dl Platelet Count 287 K/uL 223 K/uL Mean Platelet Volume 10.3 fL 9.8 fL Neutrophils (%) (Auto) 72.1 % Lymphocytes (%) (Auto) 11.4 % Monocytes (%) (Auto) 13.8 % Eosinophils (%) (Auto) 1.8 % Basophils (%) (Auto) 0.1 % Neutrophils # (Auto) 8.64 K/uL Lymphocytes # (Auto) 1.36 K/uL Monocytes # (Auto) 1.65 K/uL Eosinophils # (Auto) 0.21 K/uL Basophils # (Auto) 0.01 K/uL RDW Standard Deviation 41.1 fL 41.4 fL RDW Coefficient of Variation 12.7 % 12.8 % Immature Granulocyte % (Auto) 0.8 % Immature Granulocyte # (Auto) 0.10 K/uL Sodium Level 130 mmol/L 133 mmol/L Potassium Level 4.1 mmol/L 3.6 mmol/L Chloride Level 92 mmol/L 99 mmol/L Carbon Dioxide Level 32 mmol/L 29 mmol/L Anion Gap 7.0 mmol/L 5.0 mmol/L Blood Urea Nitrogen 34 mg/dl 29 mg/dl Creatinine 2.13 mg/dl 1.09 mg/dl Est Creatinine Clear Calc Drug Dose 33.3 ml/min 65.1 ml/min Estimated GFR () 33.8 76.0 Estimated GFR (Non- 29.2 65.6 BUN/Creatinine Ratio 15.8 26.3 Random Glucose 188 mg/dl 122 mg/dl Calcium Level 9.4 mg/dl 8.6 mg/dl Urine Color DK YELLOW Urine Appearance CLEAR Urine pH 5.5 Urine Specific [place] 1.017 Urine Protein TRACE Urine Glucose (UA) NEG Urine Ketones TRACE Urine Occult Blood 2+ Urine Nitrite NEG Urine Bilirubin NEG Urine Urobilinogen NEG Urine Leukocyte Esterase TRACE Urine WBC (Auto) 5-10 /hpf Urine RBC (Auto) >30 /hpf Urine Hyaline Casts (Auto) >30 /lpf Urine Epithelial Cells (Auto) >30 /lpf Urine Bacteria (Auto) NEG Urine Renal Epithelial Cells 0-5 /lpf Urine Pathogenic Casts 1-5 GRANULAR CASTS /lpf Bedside Glucose 144 mg/dl Impression Patient is a 78 year old male with chronic oral-pharyngeal dysphagia. He has learned to prevent choking by eating a slippery diet and by chasing foods with water. He was admitted for a brief episode of confusion, likely delirium, which has resolved. He has mild [place], improving. Plan 1. Will plan for EGD tomorrow. 2. Will likely order video swallow as well dependent on results of the EGD. I performed a history and physical examination of the patient, including specifically on physical exam - no abdominal tenderness. I have discussed the patient's management with MARIE Cortes. Please refer to the nurse practitioner's note for the documented findings and plan of care. Patient with chronic dysphagia, never had EGD, will schedule for tomorrow.
[2018-01-13] MEDS: INSULIN ASPART 100 UNITS/ML 3 ML PEN SC SCH ×5 (09:23→21:34)
[2018-01-13] MEDS: RANITIDINE HCL 150 MG TAB PO SCH ×2 (09:25→21:33)
[2018-01-13] MEDS: DULOXETINE (CYMBALTA) 30 MG CAP PO SCH (09:25)
--- NOTE | 2018-01-13 11:34 | DIAGNOSTIC IMAGING REPORT ---
[facility] CLINICAL HISTORY: 78 years-old Male presenting with rule out hydronephrosis. TECHNIQUE: Single supine view of the abdomen was obtained. COMPARISON: None. FINDINGS: Moderate stool burden in the right colon. Cholecystectomy clips noted. No bowel obstruction. No gross free air. Allowing for bowel gas and stool, no calcifications to suggest nephrolithiasis. Evaluation of the kidneys and ureters is significantly limited. Evaluation for hydronephrosis is not possible by radiograph. Pelvic phleboliths noted. Prominent splenic arterial calcification. Degenerative changes of the spine. Posterior lumbar fusion of L3-S1 with bunionectomy defects of L3-L4 and interbody spacer at L4-5. Lung bases clear. IMPRESSION: 1. Evaluation for hydronephrosis cannot be made by radiograph. 2. No radiographic evidence of nephrolithiasis allowing for significant degradation in the assessment secondary to bowel gas and stool. 3. Postsurgical changes of lumbar fusion. Electronically signed by: Jean Pierre Bustos M.D. 01/13/2018 11:33 AM Dictated Date/Time: 01/13/2018 11:31 AM
--- NOTE | 2018-01-13 12:50 | Urology Consultation ---
History General Date of Service: Jan 13, 2018. Chief Complaint: urinary retention, ARF Primary Care Physician: Oralia Rojas History of Present Illness 78 yo male with post-op UR s/p spinal surgery last week. He was seen by myself as an inpatient last week for UR. Knapp catheter placed at that time, and the pt was started on Flomax. He was to have an outpatient TOV later this week or early next week. Pt readmitted with poor appetite, AMS, and ARF. Knapp catheter currently in place draining clear, yellow urine. Cr on admission was 2.13. Normalized to 1.09 now. Pt denies pain, and states he is feeling better since admission. UC&S pending. Laboratory Last 24 Hours Test 01/12/18 20:11 01/12/18 21:49 01/13/18 00:04 01/13/18 07:29 White Blood Count 11.97 K/uL 9.47 K/uL Red Blood Count 3.57 M/uL 3.15 M/uL Hemoglobin 11.1 g/dL 9.7 g/dL Hematocrit 31.9 % 28.3 % Mean Corpuscular Volume 89.4 fL 89.8 fL Mean Corpuscular Hemoglobin 31.1 pg 30.8 pg Mean Corpuscular Hemoglobin Concent 34.8 g/dl 34.3 g/dl Platelet Count 287 K/uL 223 K/uL Mean Platelet Volume 10.3 fL 9.8 fL Neutrophils (%) (Auto) 72.1 % Lymphocytes (%) (Auto) 11.4 % Monocytes (%) (Auto) 13.8 % Eosinophils (%) (Auto) 1.8 % Basophils (%) (Auto) 0.1 % Neutrophils # (Auto) 8.64 K/uL Lymphocytes # (Auto) 1.36 K/uL Monocytes # (Auto) 1.65 K/uL Eosinophils # (Auto) 0.21 K/uL Basophils # (Auto) 0.01 K/uL RDW Standard Deviation 41.1 fL 41.4 fL RDW Coefficient of Variation 12.7 % 12.8 % Immature Granulocyte % (Auto) 0.8 % Immature Granulocyte # (Auto) 0.10 K/uL Sodium Level 130 mmol/L 133 mmol/L Potassium Level 4.1 mmol/L 3.6 mmol/L Chloride Level 92 mmol/L 99 mmol/L Carbon Dioxide Level 32 mmol/L 29 mmol/L Anion Gap 7.0 mmol/L 5.0 mmol/L Blood Urea Nitrogen 34 mg/dl 29 mg/dl Creatinine 2.13 mg/dl 1.09 mg/dl Est Creatinine Clear Calc Drug Dose 33.3 ml/min 65.1 ml/min Estimated GFR () 33.8 76.0 Estimated GFR (Non- 29.2 65.6 BUN/Creatinine Ratio 15.8 26.3 Random Glucose 188 mg/dl 122 mg/dl Calcium Level 9.4 mg/dl 8.6 mg/dl Urine Color DK YELLOW Urine Appearance CLEAR Urine pH 5.5 Urine Specific [place] 1.017 Urine Protein TRACE Urine Glucose (UA) NEG Urine Ketones TRACE Urine Occult Blood 2+ Urine Nitrite NEG Urine Bilirubin NEG Urine Urobilinogen NEG Urine Leukocyte Esterase TRACE Urine WBC (Auto) 5-10 /hpf Urine RBC (Auto) >30 /hpf Urine Hyaline Casts (Auto) >30 /lpf Urine Epithelial Cells (Auto) >30 /lpf Urine Bacteria (Auto) NEG Urine Renal Epithelial Cells 0-5 /lpf Urine Pathogenic Casts 1-5 GRANULAR CASTS /lpf Bedside Glucose 144 mg/dl Test 01/13/18 08:03 01/13/18 12:11 Bedside Glucose 137 mg/dl 164 mg/dl Past History coronary artery disease, other (mild aortic sentosis, spinal stenosis) Past Surgical History: spinal surgery (01-06-18) Family History Diabetes mellitus SISTER Social History Hx Tobacco Use In Past Year?: No Smoking: quit greater than 1 year (quit at age 34) Marital status: Housing status: lives with family Occupation status: retired Immunizations History of Influenza Vaccine: Yes Influenza Vaccine Date: Sep 26, 2017 History of Tetanus Vaccine?: Yes Tetanus Immunization Date: Dec 25, 2012 History of Pneumococcal: Yes Pneumococcal Date: Mar 20, 2016 Allergies Coded Allergies: No Known Allergies (Unverified , 12/16/17) Medications Home Medications: Home Meds and Scripts Medications Dose Route/Sig Max Daily Dose Days Date Category Cymbalta (Duloxetine Hcl) 30 Mg Cap 30 Mg PO DAILY 01/13/18 Reported Humalog Kwikpen (Insulin Human Lispro) 100 Units/Ml Inj SQ TID PRN 01/12/18 Reported [place] 5MG/325MG (Acetaminophen/Hydrocodone Bitart) Tab 1 Tablet PO Q6H PRN 01/12/18 Reported Flomax (Tamsulosin Hcl) 0.4 Mg Cap 0.4 Mg PO HS 30 01/09/18 Rx Oxycodone HCl 5 Mg Tab 5-10 Mg PO Q4H PRN 30 01/08/18 Rx Aspirin Ec (Aspirin) 81 Mg Tab 81 Mg PO QPM 01/06/18 Reported Nitrostat (Nitroglycerin) 0.4 Mg Tab 0.4 Mg UT PRN 12/16/17 Reported Zantac (Ranitidine HCl) 150 Mg Tab 150 Mg PO BID 12/16/17 Reported Lozol (Indapamide) 1.25 Mg Tab 1.25 Mg PO QAM 12/16/17 Reported Pamelor (Nortriptyline HCl) 10 Mg Cap 10 Mg PO HS 12/16/17 Reported Zyrtec (Cetirizine HCl) 10 Mg Tab 10 Mg PO DAILY PRN 12/16/17 Reported Tenormin (Atenolol) 50 Mg Tab 50 Mg PO QAM 12/16/17 Reported Lisinopril 10 Mg Tab 10 Mg PO HS 12/16/17 Reported Fluocinonide 0.05 % [place] 1 Appln TOP DAILY PRN 30 12/16/17 Reported Flexeril (Cyclobenzaprine Hcl) 10 Mg Tab 10 Mg PO TID PRN 12/16/17 Reported Inpatient Medications: Current Inpatient Medications Medications (Trade) Dose Ordered Sig/Ivette Route Start Time Stop Time Status Last Admin Dose Admin Acetaminophen (Tylenol Tab) 650 mg Q4H PRN PO 01/12/18 22:00 02/11/18 21:59 Ondansetron HCl (Zofran Inj) 4 mg Q6H PRN IV 01/12/18 22:00 02/11/18 21:59 Acetaminophen/ Hydrocodone Bitart ([place] 5/325 Tab) 1 tab Q6H PRN PO 01/12/18 22:00 01/26/18 21:59 01/13/18 00:00 1 TAB Sodium Chloride 1,000 ml @ 125 mls/hr Q8H IV 01/12/18 22:00 02/11/18 21:59 01/13/18 05:57 125 MLS/HR Duloxetine HCl (Cymbalta Cap) 30 mg QAM PO 01/13/18 09:00 4/26/18 08:59 01/13/18 09:25 30 MG Aspirin (Ecotrin Tab) 81 mg QPM PO 01/13/18 21:00 02/12/18 20:59 Atenolol (Tenormin Tab) 50 mg QAM PO 01/13/18 09:00 02/12/18 08:59 01/13/18 09:25 50 MG Cyclobenzaprine HCl (Flexeril Tab) 10 mg TID PRN PO 01/12/18 22:30 02/11/18 22:29 Nortriptyline HCl (Pamelor Cap) 10 mg HS PO 01/13/18 21:00 02/12/18 20:59 Ranitidine HCl (zANTac TAB) 150 mg BID PO 01/13/18 09:00 02/12/18 08:59 01/13/18 09:25 150 MG Tamsulosin HCl (Flomax Cap) 0.4 mg HS PO 01/13/18 21:00 02/12/18 20:59 Insulin Aspart (novoLOG ASPART) SLIDING SCALE If C... ACHS SC 01/13/18 00:00 02/12/18 00:00 Glucose (Glucose 40% Gel) 15-30 GRAMS 15 GRAMS... UD PRN PO 01/12/18 22:30 02/11/18 22:29 Glucose (Glucose Chew Tab) 4-8 Tablets 4 Tabl... UD PRN PO 01/12/18 22:30 02/11/18 22:29 Dextrose (Dextrose 50% 50ML Syringe) 25-50ML OF 50% DW IV FOR... UD PRN IV 01/12/18 22:30 02/11/18 22:29 Glucagon (Glucagon Inj) 1 mg UD PRN SQ 01/12/18 22:30 02/11/18 22:29 Review of Systems Review of Systems Constitutional: No fever, No chills Eyes: No double vision Neurological: No dizzy Endocrine: No excessive thirst Gastrointestinal: No abdominal pain, No nausea, No vomiting Cardiovascular: No chest pain Respiratory: No shortness of breath Skin: No rash Musculoskeletal: No back pain Male : No blood in urine Physical Exam Vital Signs: Vital Signs Past 12 Hours Date Time Temp Pulse Resp B/P (MAP) Pulse Ox O2 Delivery O2 Flow Rate FiO2 01/13/18 08:17 Room Air 01/13/18 07:00 36.6 67 17 117/67 (84) 92 Room Air 01/13/18 00:47 Room Air Physical Exam: General Appearance: no apparent distress Eyes: bilateral eyes normal inspection ENT: hearing grossly normal Neck: no JVD Respiratory/Chest: no respiratory distress, no accessory muscle use Cardiovascular: no JVD Extremities: normal inspection Neurologic/Psychiatric: alert, normal mood/affect, oriented x 3 Skin: normal color Assessment & Plan Assessment & Plan A/P: Urinary retention, ARF AFVSS. ARF improved. Continue Flomax. Will leave knapp catheter in place for now. Plan for outpatient trial of void later this week or early next week. If the pt were to remain inpatient for the next 1-2 days, can attempt a trial of void prior to discharge. Thanks for the consult. Will continue to follow along with primary service.
[2018-01-13 14:54] VITALS: BP 113/53; PULSE 63; TEMP 36.5; O2SAT 94
[2018-01-13] MEDS ORDERED: NORTRIPTYLINE HCL 10 MG CAP PO SCH (21:00)
--- NOTE | 2018-01-13 21:09 | Progress Note ---
Medicine Progress Note Date & Time of Visit: Jan 13, 2018 at 17:40 . Subjective Admitted with acute kidney injury. No fever. No chest pain. No cough or shortness of breath. Ongoing dysphagia to solids. No nausea or vomiting. No diarrhea. Patel catheter inserted for urinary retention. Intermittent confusion. . Objective Last 8 Hrs Date Time Temp Pulse Resp B/P (MAP) Pulse Ox O2 Delivery O2 Flow Rate FiO2 01/13/18 15:28 Room Air 01/13/18 14:54 36.5 63 18 113/53 (73) 94 Room Air Physical Exam: General-lying in bed no distress Lungs- clear to auscultation; no respiratory distress Cardiovascular- RRR; III/ systolic murmur at base; no gallop; no JVD; no pretibial edema Abdomen- + bowel sounds, soft, nontender -Patel catheter draining clear urine Extremities- no cyanosis; no calf tenderness Neuro- alert, mild confusion Skin- warm & dry . Laboratory Results: Last 24 Hours Test 01/12/18 21:49 01/13/18 00:04 01/13/18 07:29 01/13/18 08:03 Urine Color DK YELLOW Urine Appearance CLEAR Urine pH 5.5 Urine Specific [place] 1.017 Urine Protein TRACE Urine Glucose (UA) NEG Urine Ketones TRACE Urine Occult Blood 2+ Urine Nitrite NEG Urine Bilirubin NEG Urine Urobilinogen NEG Urine Leukocyte Esterase TRACE Urine WBC (Auto) 5-10 /hpf Urine RBC (Auto) >30 /hpf Urine Hyaline Casts (Auto) >30 /lpf Urine Epithelial Cells (Auto) >30 /lpf Urine Bacteria (Auto) NEG Urine Renal Epithelial Cells 0-5 /lpf Urine Pathogenic Casts 1-5 GRANULAR CASTS /lpf Bedside Glucose 144 mg/dl 137 mg/dl White Blood Count 9.47 K/uL Red Blood Count 3.15 M/uL Hemoglobin 9.7 g/dL Hematocrit 28.3 % Mean Corpuscular Volume 89.8 fL Mean Corpuscular Hemoglobin 30.8 pg Mean Corpuscular Hemoglobin Concent 34.3 g/dl RDW Standard Deviation 41.4 fL RDW Coefficient of Variation 12.8 % Platelet Count 223 K/uL Mean Platelet Volume 9.8 fL Sodium Level 133 mmol/L Potassium Level 3.6 mmol/L Chloride Level 99 mmol/L Carbon Dioxide Level 29 mmol/L Anion Gap 5.0 mmol/L Blood Urea Nitrogen 29 mg/dl Creatinine 1.09 mg/dl Est Creatinine Clear Calc Drug Dose 65.1 ml/min Estimated GFR () 76.0 Estimated GFR (Non- 65.6 BUN/Creatinine Ratio 26.3 Random Glucose 122 mg/dl Calcium Level 8.6 mg/dl Test 01/13/18 12:11 01/13/18 17:12 01/13/18 20:15 Bedside Glucose 164 mg/dl 171 mg/dl 160 mg/dl Date/Time Source Procedure Growth Status 01/12/18 21:49 Urine,Catheterized Urine Culture - Preliminary NO GROWTH - LESS THAN 1,000 COLONIES/... Resulted Assessment & Plan ACUTE KIDNEY INJURY Serum creatinine at time of admission 2.13. Received IV fluids. Patel catheter inserted for urinary retention. Creatinine today = 1.09. Follow. URINARY RETENTION Developed urinary retention postoperatively after back surgery. Urology consulted to follow. Eventual voiding trial anticipated. CONFUSION May be secondary to medications. Discontinue baclofen. Continue [place] for postop pain with caution. DYSPHAGIA GI consult. EGD anticipated. DM TYPE II Well-controlled. Hemoglobin A1c 7.2 01/07/18. Fasting blood sugar today 137. NovoLog per protocol. VTE PROPHYLAXIS SCD's. Ambulate. DISPOSITION To be determined. Medical follow-up with Dr. Rojas. . Current Inpatient Medications: Current Inpatient Medications Medications (Trade) Dose Ordered Sig/Ivette Route Start Time Stop Time Status Last Admin Dose Admin Acetaminophen (Tylenol Tab) 650 mg Q4H PRN PO 01/12/18 22:00 02/11/18 21:59 01/13/18 15:39 650 MG Ondansetron HCl (Zofran Inj) 4 mg Q6H PRN IV 01/12/18 22:00 02/11/18 21:59 Acetaminophen/ Hydrocodone Bitart ([place] 5/325 Tab) 1 tab Q6H PRN PO 01/12/18 22:00 01/26/18 21:59 01/13/18 00:00 1 TAB Sodium Chloride 1,000 ml @ 125 mls/hr Q8H IV 01/12/18 22:00 02/11/18 21:59 01/13/18 12:55 125 MLS/HR Duloxetine HCl (Cymbalta Cap) 30 mg QAM PO 01/13/18 09:00 02/12/18 08:59 01/13/18 09:25 30 MG Aspirin (Ecotrin Tab) 81 mg QPM PO 01/13/18 21:00 02/12/18 20:59 Atenolol (Tenormin Tab) 50 mg QAM PO 01/13/18 09:00 02/12/18 08:59 01/13/18 09:25 50 MG Nortriptyline HCl (Pamelor Cap) 10 mg HS PO 01/13/18 21:00 02/12/18 20:59 Ranitidine HCl (zANTac TAB) 150 mg BID PO 01/13/18 09:00 02/12/18 08:59 01/13/18 09:25 150 MG Tamsulosin HCl (Flomax Cap) 0.4 mg HS PO 01/13/18 21:00 02/12/18 20:59 Insulin Aspart (novoLOG ASPART) SLIDING SCALE If C... ACHS SC 01/13/18 00:00 02/12/18 00:00 01/13/18 18:52 6 UNITS Glucose (Glucose 40% Gel) 15-30 GRAMS 15 GRAMS... UD PRN PO 01/12/18 22:30 02/11/18 22:29 Glucose (Glucose Chew Tab) 4-8 Tablets 4 Tabl... UD PRN PO 01/12/18 22:30 02/11/18 22:29 Dextrose (Dextrose 50% 50ML Syringe) 25-50ML OF 50% DW IV FOR... UD PRN IV 01/12/18 22:30 02/11/18 22:29 Glucagon (Glucagon Inj) 1 mg UD PRN SQ 01/12/18 22:30 02/11/18 22:29
[2018-01-13] MEDS: ASPIRIN 81 MG ECTAB PO SCH (21:33)
[2018-01-13] MEDS: TAMSULOSIN HCL 0.4 MG CAP PO SCH (21:34)
[2018-01-13 23:01] VITALS: BP 173/71; PULSE 75; TEMP 36.9; O2SAT 96
[2018-01-13 23:31] VITALS: BP 167/69
[2018-01-14] MEDS ORDERED: NURSING DECISION MEDICATION ORDER SCH (01:00)
[2018-01-14] MEDS: SODIUM CHLORIDE 0.9% 1000ML 1,000 ML IV SCH ×2 (05:10→13:50)
[2018-01-14] MEDS: INSULIN ASPART 100 UNITS/ML 3 ML PEN SC SCH ×3 (06:00→18:00)
[2018-01-14 07:24] VITALS: BP 164/72; PULSE 75; TEMP 36.7; O2SAT 96
[2018-01-14 07:36] LABS: CALCIUM 8.8 mg/dl (8.5-10.1); CREATININE 0.72 mg/dl (0.60-1.40); POTASSIUM 3.5 mmol/L (3.5-5.1)
[2018-01-14] MEDS: RANITIDINE HCL 150 MG TAB PO SCH (08:44)
[2018-01-14] MEDS: DULOXETINE (CYMBALTA) 30 MG CAP PO SCH (09:00)
--- NOTE | 2018-01-14 09:03 | Progress Note ---
Subjective Date of Service: Jan 14, 2018. Subjective Pt evaluation today including: conversation w/ patient, chart review, lab review Voiding: knapp catheter in place (patent, draining clear, yellow urine ) Pt with post-op UR. Pt has become increasingly confused since yesterday. Requiring one to one today. Per nursing reports, he tried to push an aid this morning. Pt calm during my visit this morning, but seems slightly confused. He is pending an EGD today. Review of Systems Constitutional: No fever, No chills Respiratory: No shortness of breath Cardiac: No chest pain Abdomen: + nausea, No pain, No vomiting Musculoskeletal: + problem reported (back pain ) Male : No hematuria Objective Vital Signs Date Time Temp Pulse Resp B/P (MAP) Pulse Ox O2 Delivery O2 Flow Rate FiO2 01/14/18 07:24 36.7 75 16 164/72 (102) 96 Room Air 01/14/18 07:10 Room Air 01/13/18 23:31 167/69 (101) 01/13/18 23:30 Room Air 01/13/18 23:01 36.9 75 16 173/71 (105) 96 Room Air 01/13/18 15:28 Room Air 01/13/18 14:54 36.5 63 18 113/53 (73) 94 Room Air Physical Exam General Appearance: no apparent distress Eyes: normal inspection ENT: hearing grossly normal Neck: no JVD Respiratory/Chest: no respiratory distress, no accessory muscle use Cardiovascular: no JVD Extremities: normal inspection Neurologic/Psychiatric: alert, + disoriented Skin: normal color Laboratory Results Last 24 Hours Test 01/13/18 12:11 01/13/18 17:12 01/13/18 20:15 01/14/18 06:05 Bedside Glucose 164 mg/dl 171 mg/dl 160 mg/dl 129 mg/dl Test 01/14/18 06:25 Sodium Level 137 mmol/L Potassium Level 3.5 mmol/L Chloride Level 104 mmol/L Carbon Dioxide Level 24 mmol/L Anion Gap 9.0 mmol/L Blood Urea Nitrogen 20 mg/dl Creatinine 0.72 mg/dl Est Creatinine Clear Calc Drug Dose 98.6 ml/min Estimated GFR () 105.0 Estimated GFR (Non- 90.6 BUN/Creatinine Ratio 27.4 Random Glucose 117 mg/dl Calcium Level 8.8 mg/dl Assessment and Plan A/P: Urinary retention Will plan to leave knapp catheter in place until tomorrow since he is pending an EGD today with anesthesia. However, if the pt becomes increasingly agitated with concern he is going to pull out his own knapp catheter, I recommend knapp be removed and a trial of void attempted. Can initiate CIC after if unable to void. Continue Flomax. Will continue to follow along with primary service. ADDENDUM: RN called stating the pt's family is very concerned Flomax may be contributing to his confusion. Seems doubtful, but I will hold the Flomax for now and see if confusion improves.
--- NOTE | 2018-01-14 11:59 | History & Physical Bridge Note ---
H&P Re-Evaluation Bridge Note: I have examined the patient, reviewed the History & Physical and in the interval since the performance of the History & Physical I have noted the following changes of clinical significance: No changes noted Consent obtained from family
--- NOTE | 2018-01-14 12:32 | GI REPORT ---
Procedure Date: 01/14/2018 12:10 PM Procedure: Upper GI endoscopy Indications: Dysphagia Medicines: Monitored Anesthesia Care Complications: No immediate complications. Estimated Blood Loss: Estimated blood loss: none. Procedure: Pre-Anesthesia Assessment: - Prior to the procedure, a History and Physical was performed, and patient medications and allergies were reviewed. The patient is unable to give consent secondary to the patient's altered mental status. The risks and benefits of the procedure and the sedation options and risks were discussed with the patient's spouse. All questions were answered and informed consent was obtained. Patient identification and proposed procedure were verified by the physician and the nurse in the procedure room. Mental Status Examination: alert but confused. Airway Examination: normal oropharyngeal airway and neck mobility. Respiratory Examination: clear to auscultation. CV Examination: normal. ASA Grade Assessment: III - A patient with severe systemic disease. After reviewing the risks and benefits, the patient was deemed in satisfactory condition to undergo the procedure. The anesthesia plan was to use monitored anesthesia care (MAC). Immediately prior to administration of medications, the patient was re-assessed for adequacy to receive sedatives. The heart rate, respiratory rate, oxygen saturations, blood pressure, adequacy of pulmonary ventilation, and response to care were monitored throughout the procedure. The physical status of the patient was re-assessed after the procedure. After obtaining informed consent, the endoscope was passed under direct vision. Throughout the procedure, the patient's blood pressure, pulse, and oxygen saturations were monitored continuously. The scope was introduced through the mouth, and advanced to the second part of duodenum. The upper GI endoscopy was accomplished without difficulty. The patient tolerated the procedure well. Findings: The Z-line was regular and was found 40 cm from the incisors. No endoscopic abnormality was evident in the esophagus to explain the patient's complaint of dysphagia. It was decided, however, to proceed with dilation of the entire esophagus. A guidewire was placed and the scope was withdrawn. Dilation was performed with a Savary dilator with no resistance at 36 Fr, 45 Fr and 54 Fr. The dilation site was examined following endoscope reinsertion and showed no bleeding, mucosal tear or perforation. Scattered moderate inflammation characterized by adherent old blood (Coffee ground material), erosions and erythema was found in the gastric body and in the gastric antrum. Biopsies were taken with a cold forceps for Helicobacter pylori testing. Verification of patient identification for the specimen was done by the physician and nurse using the patient's name and date. The duodenal bulb and second portion of the duodenum were normal. Biopsies were taken with a cold forceps for histology. Impression: - No endoscopic esophageal abnormality to explain patient's dysphagia. Esophagus empirically dilated. - Gastritis. Biopsied. - Normal duodenal bulb and second portion of the duodenum. Biopsied. Recommendation: - Return patient to [facility] for ongoing care. - Advance diet as tolerated. - No ibuprofen, naproxen, or other non-steroidal anti-inflammatory drugs. - Use Protonix (pantoprazole) 40 mg PO daily for 6 weeks. Sotero Malone MD 01/14/2018 12:31:39 PM This report has been signed electronically. Note Initiated On: 01/14/2018 12:10 PM I attest to the content of the Intraoperative Record and orders documented therein, exceptions below
[2018-01-14] MEDS ORDERED: PROPOFOL IV EMULSION 10 MG/ML 20 ML VIAL IV ONE (12:39)
[2018-01-14] MEDS ORDERED: LIDOCAINE HCL 2% 2 ML VIAL (20MG/ML) ONE (12:39)
--- NOTE | 2018-01-14 12:48 | Anesthesiology Progress Note ---
Anesthesia Post Op Note Date & Time Jan 14, 2018 at 12:48 Vital Signs Pain Intensity: 0 Vital Signs Past 12 Hours Date Time Temp Pulse Resp B/P (MAP) Pulse Ox O2 Delivery O2 Flow Rate FiO2 01/14/18 12:35 72 16 122/83 (96) 95 Room Air 01/14/18 10:08 36.9 77 16 163/68 (99) 97 Room Air 01/14/18 07:24 36.7 75 16 164/72 (102) 96 Room Air 01/14/18 07:10 Room Air Notes Mental Status: alert / awake / arousable, participated in evaluation Pt Amnestic to Procedure: Yes Nausea / Vomiting: adequately controlled Pain: adequately controlled Airway Patency, RR, SpO2: stable & adequate BP & HR: stable & adequate Hydration State: stable & adequate Anesthetic Complications: no major complications apparent
[2018-01-14 13:31] VITALS: BP 164/66; PULSE 96; TEMP 36.7; O2SAT 98
--- NOTE | 2018-01-14 15:52 | Gastroenterology Progress Note ---
Gastroenterology Progress Note EGD showed normal esophagus, empirically dilated. Gastritis noted. Recommend: PPI Recall GI if any concerns.
[2018-01-14] MEDS ORDERED: ACETAMINOPHEN 500 MG TAB PO PRN (17:00)
[2018-01-14] MEDS: TAMSULOSIN HCL 0.4 MG CAP PO SCH (21:00)
[2018-01-14] MEDS: ASPIRIN 81 MG ECTAB PO SCH (21:00)
[2018-01-14] MEDS ORDERED: OLANZAPINE 10 MG/2.1 ML SDV IM ONE ×2 (21:45→22:00)
[2018-01-14] MEDS ORDERED: NURSING VERBAL MED ORDER ONE (22:45)
[2018-01-14] MEDS ORDERED: HALOPERIDOL LACTATE 5 MG/ML 1 ML VIAL IM ONE (22:51)
[2018-01-14 23:00] VITALS: BP 193/72; PULSE 93; TEMP 36.9; O2SAT 98
[2018-01-14] MEDS ORDERED: HALOPERIDOL 1 MG TAB PO PRN (23:00)
[2018-01-14] MEDS ORDERED: HALOPERIDOL LACTATE 5 MG/ML 1 ML VIAL IM PRN (23:00)
[2018-01-15] VITALS (9 sets, daily range): BP systolic 158–201; BP diastolic 55–80; PULSE 66–106; TEMP 36.7–36.8; O2SAT 94–97
[2018-01-15 00:21] LABS: CALCIUM 8.8 mg/dl (8.5-10.1); CREATININE 0.78 mg/dl (0.60-1.40); POTASSIUM 3.4 mmol/L (3.5-5.1)
[2018-01-15] MEDS ORDERED: MAGNESIUM SULFATE 1GM / D5W 1 GM in PREMIXED IN D5W 100 ML IV ONE (00:30)
[2018-01-15] MEDS ORDERED: NSS + 20MEQ KCL 1000ML 1,000 ML IV ONE (00:30)
[2018-01-15] MEDS ORDERED: LISINOPRIL 2.5 MG TAB PO ONE (06:10)
[2018-01-15] MEDS ORDERED: NITROGLYCERIN 0.4 MG SL PER TAB CHARGE SL STA (06:14)
[2018-01-15] MEDS ORDERED: TRAMADOL HCL 50 MG TAB PO PRN (06:15)
[2018-01-15] MEDS ORDERED: NITROGLYCERIN 0.4 MG SL PER TAB CHARGE ONE (06:17)
--- NOTE | 2018-01-15 06:22 | Progress Note ---
Medicine Progress Note Date & Time of Visit: Jan 14, 2018 at 16:30 . Subjective Late entry secondary to computer downtime. EGD performed earlier today with results as noted below. Was confused after procedure, but better by the time of my assessment. Family visiting and concerned about confusion. Patient states that he feels well. No fever. No chest pain. No cough or shortness of breath. No nausea or vomiting. Still has Patel catheter. Back pain improved. . Objective Vital signs this morning at 07:24: temperature 36.7, pulse 75, respirations 16, blood pressure 164/72 . Physical Exam: General- sitting in chair; no distress Lungs- clear to auscultation; no respiratory distress Cardiovascular- RRR; III/ systolic murmur at base; no gallop; no JVD; no pretibial edema Abdomen- + bowel sounds, soft, nontender Back- lumbar incision healing well; no erythema or drainage - Patel catheter draining clear urine Extremities- no cyanosis; no calf tenderness Neuro- alert, mild confusion but oriented 3, knows the president, knows his 's birthday Skin- warm & dry . Laboratory Results: Last 24 Hours Test 01/14/18 06:25 01/14/18 13:32 01/14/18 17:06 01/14/18 20:47 Sodium Level 137 mmol/L Potassium Level 3.5 mmol/L Chloride Level 104 mmol/L Carbon Dioxide Level 24 mmol/L Anion Gap 9.0 mmol/L Blood Urea Nitrogen 20 mg/dl Creatinine 0.72 mg/dl Est Creatinine Clear Calc Drug Dose 98.6 ml/min Estimated GFR () 105.0 Estimated GFR (Non- 90.6 BUN/Creatinine Ratio 27.4 Random Glucose 117 mg/dl Calcium Level 8.8 mg/dl Bedside Glucose 116 mg/dl 113 mg/dl 138 mg/dl Test 01/14/18 23:50 01/15/18 06:10 01/15/18 06:13 Sodium Level 137 mmol/L Potassium Level 3.4 mmol/L Chloride Level 104 mmol/L Carbon Dioxide Level 24 mmol/L Anion Gap 10.0 mmol/L Blood Urea Nitrogen 25 mg/dl Creatinine 0.78 mg/dl Est Creatinine Clear Calc Drug Dose 91.0 ml/min Estimated GFR () 101.6 Estimated GFR (Non- 87.7 BUN/Creatinine Ratio 31.7 Random Glucose 113 mg/dl Calcium Level 8.8 mg/dl Magnesium Level 1.7 mg/dl Date/Time Source Procedure Growth Status 01/15/18 00:00 Urine , Clean Catch Urine Culture Pending Received Assessment & Plan ACUTE KIDNEY INJURY Serum creatinine at time of admission 2.13. Received IV fluids. Patel catheter inserted for urinary retention. Creatinine today = 0.72. Stop IV fluids. Follow. URINARY RETENTION Developed urinary retention postoperatively after back surgery and Patel catheter was placed. Urology consulted to follow. Eventual voiding trial anticipated. CONFUSION Suspect delirium, most likely secondary to medications. Dehydration may have been contributing factor. Discontinued baclofen. Stop hydrocodone and nortriptyline. DYSPHAGIA GI consult. EGD today demonstrated gastritis, but no apparent esophageal pathology. GASTRITIS Noted on EGD. PPI x 6 months recommended. DM TYPE II Well-controlled. Hemoglobin A1c 7.2 01/07/18. Fasting blood sugar today 129. NovoLog per protocol. S/P LUMBAR DECOMPRESSION / FUSION Resume PT / OT. VTE PROPHYLAXIS SCD's. Ambulate. DISPOSITION To be determined. Medical follow-up with Dr. Rojas. . Current Inpatient Medications: Current Inpatient Medications Medications (Trade) Dose Ordered Sig/Ivette Route Start Time Stop Time Status Last Admin Dose Admin Ondansetron HCl (Zofran Inj) 4 mg Q6H PRN IV 01/12/18 22:00 02/11/18 21:59 Duloxetine HCl (Cymbalta Cap) 30 mg QAM PO 01/13/18 09:00 02/12/18 08:59 01/13/18 09:25 30 MG Aspirin (Ecotrin Tab) 81 mg QPM PO 01/13/18 21:00 02/12/18 20:59 01/14/18 21:00 81 MG Tamsulosin HCl (Flomax Cap) 0.4 mg HS PO 01/13/18 21:00 02/12/18 20:59 Future hold 01/14/18 21:00 0.4 MG Glucose (Glucose 40% Gel) 15-30 GRAMS 15 GRAMS... UD PRN PO 01/12/18 22:30 02/11/18 22:29 Glucose (Glucose Chew Tab) 4-8 Tablets 4 Tabl... UD PRN PO 01/12/18 22:30 02/11/18 22:29 Dextrose (Dextrose 50% 50ML Syringe) 25-50ML OF 50% DW IV FOR... UD PRN IV 01/12/18 22:30 02/11/18 22:29 Glucagon (Glucagon Inj) 1 mg UD PRN SQ 01/12/18 22:30 02/11/18 22:29 Pantoprazole Sodium (Protonix Tab) 40 mg QAM PO 01/15/18 09:00 01/18/18 09:01 Acetaminophen (Tylenol Tab) 1,000 mg Q8 PRN PO 01/14/18 17:00 02/13/18 16:59 Insulin Aspart (novoLOG ASPART) SLIDING SCALE If C... ACHS SC 01/15/18 08:00 02/14/18 07:59 Haloperidol (Haldol Tab) 2 mg Q4H PRN PO 01/14/18 23:00 02/13/18 22:59 Haloperidol Lactate (Haldol Inj) 2 mg Q2H PRN IM 01/14/18 23:00 02/13/18 22:59 Potassium Chloride/Sodium Chloride 1,000 ml @ 80 mls/hr [id number] ONCE IV 01/15/18 00:30 01/15/18 12:59 01/15/18 01:02 80 MLS/HR Atenolol (Tenormin Tab) 50 mg QAM PO 01/16/18 09:00 02/12/18 08:59 Lisinopril (Zestril Tab) 2.5 mg QAM PO 01/16/18 09:00 02/15/18 08:59 Tramadol HCl (Ultram Tab) 25 mg Q6H PRN PO 01/15/18 06:15 02/14/18 06:14 UNV Nitroglycerin (Nitrostat Tab) 0.4 mg NOW STAT SL 01/15/18 06:14 01/15/18 06:15 UNV
[2018-01-15 07:01] LABS: EOS % 0.7 %; EOS ABS # 0.07 K/uL (0-0.5); HEMATOCRIT 29.6 % (42-52); HEMOGLOBIN 10.4 g/dL (14.0-18.0); IG# 0.08 K/uL (0.00-0.02); LYMPH % 11.6 %; LYMPH ABS # 1.08 K/uL (1.2-3.4); MEAN CELL VOLUME 88.9 fL (80-100); MEAN CORPUSCULAR HEMOGLOBIN 31.2 pg (25-34); MEAN CORPUSCULAR HGB CONC 35.1 g/dl (32-36); MEAN PLATELET VOLUME 9.8 fL (7.4-10.4); MONO ABS # 1.21 K/uL (0.11-0.59); NEUT % 73.8 %; PLATELET COUNT 305 K/uL (130-400); RED CELL DISTRIBUTION WIDTH CV 12.6 % (11.5-14.5); RED CELL DISTRIBUTION WIDTH SD 40.6 fL (36.4-46.3); WHITE BLOOD COUNT 9.34 K/uL (4.8-10.8)
[2018-01-15 07:12] LABS: PTT PATIENT 24.4 SECONDS (21.0-31.0)
[2018-01-15 07:32] LABS: ALBUMIN 2.2 gm/dl (3.4-5.0); CALCIUM 8.6 mg/dl (8.5-10.1); CREATININE 0.68 mg/dl (0.60-1.40); POTASSIUM 3.2 mmol/L (3.5-5.1)
[2018-01-15 07:40] LABS: TOTAL PROTEIN 5.9 gm/dl (6.4-8.2)
[2018-01-15] MEDS: DULOXETINE (CYMBALTA) 30 MG CAP PO SCH (08:03)
[2018-01-15] MEDS: INSULIN ASPART 100 UNITS/ML 3 ML PEN SC SCH ×4 (08:07→21:00)
[2018-01-15] MEDS ORDERED: ASPIRIN 81 MG ECTAB PO ONE (08:07)
[2018-01-15] MEDS ORDERED: OLANZAPINE ZYDIS 5 MG ORALLY DIS. TAB PO PRN (08:15)
[2018-01-15] MEDS ORDERED: PANTOprazole SOD 40 MG TAB PO SCH (09:00)
[2018-01-15] MEDS: PANTOprazole INJ 40 MG in SYRINGE 0 ML IV SCH ×2 (10:12→21:06)
[2018-01-15] MEDS: CLOPIDOGREL BISULFATE 75 MG TAB PO SCH (10:12)
[2018-01-15] MEDS: ENALAPRILAT IV 0.625 MG in DEXTROSE 5% 25ML 25 ML IV PRN ×2 (11:12→22:44)
--- NOTE | 2018-01-15 11:14 | Progress Note ---
Subjective Date of Service: Jan 15, 2018. Subjective Pt evaluation today including: conversation w/ patient, chart review, lab review Voiding: knapp catheter in place (patent, draining clear, yellow urine ) Pt remains confused this morning with one to one supervision. Per aid, the pt has been attempting to pull at his catheter a few times. The pt thinks he is at home pointing to the wall stating he built that and also referred to watching a video of himself walking around. Flomax held at the pt's request for concern it was contributing to his confusion. Knapp remains in place. Review of Systems Pt unable to answer questions appropriately d/t AMS. Objective Vital Signs Date Time Temp Pulse Resp B/P (MAP) Pulse Ox O2 Delivery O2 Flow Rate FiO2 01/15/18 09:43 66 166/69 (101) 01/15/18 07:27 36.7 78 20 168/78 (108) 97 Room Air 01/15/18 07:05 Room Air 01/15/18 06:08 185/80 (115) 01/15/18 06:07 106 20 201/55 (103) 94 Room Air 01/15/18 00:04 81 173/72 (105) 01/14/18 23:21 Room Air 01/14/18 23:00 36.9 93 20 193/72 (112) 98 Room Air 01/14/18 15:15 Room Air 01/14/18 13:31 36.7 96 16 164/66 (98) 98 Room Air 01/14/18 13:08 72 16 141/55 (83) 98 Room Air 01/14/18 12:52 74 16 145/60 (88) 95 Room Air 01/14/18 12:35 72 16 122/83 (96) 95 Room Air Physical Exam General Appearance: no apparent distress Eyes: normal inspection ENT: hearing grossly normal Neck: no JVD Respiratory/Chest: no respiratory distress, no accessory muscle use Cardiovascular: no JVD Extremities: normal inspection Neurologic/Psychiatric: alert, normal mood/affect, oriented x 3 Skin: normal color Laboratory Results Last 24 Hours Test 01/14/18 13:32 01/14/18 17:06 01/14/18 20:47 01/14/18 23:50 Bedside Glucose 116 mg/dl 113 mg/dl 138 mg/dl Sodium Level 137 mmol/L Potassium Level 3.4 mmol/L Chloride Level 104 mmol/L Carbon Dioxide Level 24 mmol/L Anion Gap 10.0 mmol/L Blood Urea Nitrogen 25 mg/dl Creatinine 0.78 mg/dl Est Creatinine Clear Calc Drug Dose 91.0 ml/min Estimated GFR () 101.6 Estimated GFR (Non- 87.7 BUN/Creatinine Ratio 31.7 Random Glucose 113 mg/dl Calcium Level 8.8 mg/dl Magnesium Level 1.7 mg/dl Test 01/15/18 06:47 White Blood Count 9.34 K/uL Red Blood Count 3.33 M/uL Hemoglobin 10.4 g/dL Hematocrit 29.6 % Mean Corpuscular Volume 88.9 fL Mean Corpuscular Hemoglobin 31.2 pg Mean Corpuscular Hemoglobin Concent 35.1 g/dl Platelet Count 305 K/uL Mean Platelet Volume 9.8 fL Neutrophils (%) (Auto) 73.8 % Lymphocytes (%) (Auto) 11.6 % Monocytes (%) (Auto) 13.0 % Eosinophils (%) (Auto) 0.7 % Basophils (%) (Auto) 0.0 % Neutrophils # (Auto) 6.90 K/uL Lymphocytes # (Auto) 1.08 K/uL Monocytes # (Auto) 1.21 K/uL Eosinophils # (Auto) 0.07 K/uL Basophils # (Auto) 0.00 K/uL RDW Standard Deviation 40.6 fL RDW Coefficient of Variation 12.6 % Immature Granulocyte % (Auto) 0.9 % Immature Granulocyte # (Auto) 0.08 K/uL Activated Partial Thromboplast Time 24.4 SECONDS Partial Thromboplastin Ratio 0.9 Sodium Level 137 mmol/L Potassium Level 3.2 mmol/L Chloride Level 104 mmol/L Carbon Dioxide Level 24 mmol/L Anion Gap 9.0 mmol/L Blood Urea Nitrogen 20 mg/dl Creatinine 0.68 mg/dl Est Creatinine Clear Calc Drug Dose 104.4 ml/min Estimated GFR () 107.5 Estimated GFR (Non- 92.8 BUN/Creatinine Ratio 29.5 Random Glucose 107 mg/dl Calcium Level 8.6 mg/dl Magnesium Level 1.9 mg/dl Total Bilirubin 0.7 mg/dl Aspartate Amino Transf (AST/SGOT) 80 U/L Alanine Aminotransferase (ALT/SGPT) 100 U/L Alkaline Phosphatase 98 U/L Troponin I 0.066 ng/ml Total Protein 5.9 gm/dl Albumin 2.2 gm/dl Globulin 3.7 gm/dl Albumin/Globulin Ratio 0.6 Lipase 72 U/L Assessment and Plan A/P: Urinary retention Pt remains confused. Continues to attempt to pull at knapp catheter on occasion. Will attempt a trial of void today. Continue to hold Flomax unless the pt's family is agreeable to restarting. Will continue to follow along with primary service.
[2018-01-15 13:32] LABS: POTASSIUM 3.5 mmol/L (3.5-5.1)
--- NOTE | 2018-01-15 19:53 | Progress Note ---
Medicine Progress Note Date & Time of Visit: Jan 15, 2018 at 08:40 . Subjective Worsening delirium during the night. Blood pressure is elevated. Brief episode of epigastric discomfort which patient attributed to heartburn. Better this morning, less confused. No fever. No chest pain. No cough or shortness of breath. No nausea or vomiting. No diarrhea. Still has Patel catheter. . Objective Last 8 Hrs Date Time Temp Pulse Resp B/P (MAP) Pulse Ox O2 Delivery O2 Flow Rate FiO2 01/15/18 15:30 Room Air 01/15/18 15:12 36.8 72 16 174/76 (108) 96 Room Air 180/77 (111) 01/15/18 13:55 72 158/69 (98) Physical Exam: General- lying in bed; no distress Lungs- clear to auscultation; no respiratory distress Cardiovascular- RRR; III/ systolic murmur at base; no gallop; no JVD; no pretibial edema Abdomen- + bowel sounds, soft, nontender Back- - Patel catheter draining clear urine Extremities- no cyanosis; no calf tenderness Neuro- alert, moderate confusion but essentially oriented 3 Skin- warm & dry . Laboratory Results: Last 24 Hours Test 01/14/18 20:47 01/14/18 23:50 01/15/18 06:47 01/15/18 07:17 Bedside Glucose 138 mg/dl 130 mg/dl Sodium Level 137 mmol/L 137 mmol/L Potassium Level 3.4 mmol/L 3.2 mmol/L Chloride Level 104 mmol/L 104 mmol/L Carbon Dioxide Level 24 mmol/L 24 mmol/L Anion Gap 10.0 mmol/L 9.0 mmol/L Blood Urea Nitrogen 25 mg/dl 20 mg/dl Creatinine 0.78 mg/dl 0.68 mg/dl Est Creatinine Clear Calc Drug Dose 91.0 ml/min 104.4 ml/min Estimated GFR () 101.6 107.5 Estimated GFR (Non- 87.7 92.8 BUN/Creatinine Ratio 31.7 29.5 Random Glucose 113 mg/dl 107 mg/dl Calcium Level 8.8 mg/dl 8.6 mg/dl Magnesium Level 1.7 mg/dl 1.9 mg/dl White Blood Count 9.34 K/uL Red Blood Count 3.33 M/uL Hemoglobin 10.4 g/dL Hematocrit 29.6 % Mean Corpuscular Volume 88.9 fL Mean Corpuscular Hemoglobin 31.2 pg Mean Corpuscular Hemoglobin Concent 35.1 g/dl Platelet Count 305 K/uL Mean Platelet Volume 9.8 fL Neutrophils (%) (Auto) 73.8 % Lymphocytes (%) (Auto) 11.6 % Monocytes (%) (Auto) 13.0 % Eosinophils (%) (Auto) 0.7 % Basophils (%) (Auto) 0.0 % Neutrophils # (Auto) 6.90 K/uL Lymphocytes # (Auto) 1.08 K/uL Monocytes # (Auto) 1.21 K/uL Eosinophils # (Auto) 0.07 K/uL Basophils # (Auto) 0.00 K/uL RDW Standard Deviation 40.6 fL RDW Coefficient of Variation 12.6 % Immature Granulocyte % (Auto) 0.9 % Immature Granulocyte # (Auto) 0.08 K/uL Activated Partial Thromboplast Time 24.4 SECONDS Partial Thromboplastin Ratio 0.9 Total Bilirubin 0.7 mg/dl Aspartate Amino Transf (AST/SGOT) 80 U/L Alanine Aminotransferase (ALT/SGPT) 100 U/L Alkaline Phosphatase 98 U/L Troponin I 0.066 ng/ml Total Protein 5.9 gm/dl Albumin 2.2 gm/dl Globulin 3.7 gm/dl Albumin/Globulin Ratio 0.6 Lipase 72 U/L Test 01/15/18 11:55 01/15/18 13:05 01/15/18 17:01 Bedside Glucose 133 mg/dl 143 mg/dl Potassium Level 3.5 mmol/L Troponin I 0.063 ng/ml Date/Time Source Procedure Growth Status 01/15/18 00:00 Urine , Clean Catch Urine Culture Pending Received Assessment & Plan ACUTE KIDNEY INJURY Serum creatinine at time of admission 2.13. Received IV fluids. Patel catheter inserted for urinary retention. Creatinine today = 0.68. Follow. URINARY RETENTION Developed urinary retention postoperatively after back surgery and Patel catheter was placed. Urology consulted to follow. Eventual voiding trial anticipated. CONFUSION Suspect delirium, most likely secondary to medications. Dehydration may have been contributing factor. Discontinued baclofen, hydrocodone, and nortriptyline. DYSPHAGIA GI consulted. EGD today demonstrated gastritis, but no apparent esophageal pathology. Check barium swallow when able. GASTRITIS Noted on EGD. PPI x 6 months recommended. CORONARY ARTERY DISEASE S/P PCI LAD. Currently on aspirin and atenolol. Brief episode of chest vs epigastric pain. EKG showed NSR, slight lateral ST depression. Troponin slightly elevated in setting of delirium and elevated BP's. Doubt acute coronary syndrome. Change antiplatelet therapy from aspirin to clopidogrel due to gastritis. HYPERTENSION BP's elevated in the setting of delirium. Lisinopril was held due to acute kidney injury. Continue atenolol. Resume lisinopril. DM TYPE II Well-controlled. Hemoglobin A1c 7.2 01/07/18. Fasting blood sugar today 107. NovoLog per protocol. S/P LUMBAR DECOMPRESSION / FUSION Resume PT / OT. VTE PROPHYLAXIS No anticoagulants due to gastritis. SCD's. Ambulate. DISPOSITION Expected discharge to home. Medical follow-up with Dr. Rojas. Recheck later in the day. Family visiting. No new problems or concerns. Patel catheter removed per Urology. . Current Inpatient Medications: Current Inpatient Medications Medications (Trade) Dose Ordered Sig/Ivette Route Start Time Stop Time Status Last Admin Dose Admin Ondansetron HCl (Zofran Inj) 4 mg Q6H PRN IV 01/12/18 22:00 02/11/18 21:59 Duloxetine HCl (Cymbalta Cap) 30 mg QAM PO 01/13/18 09:00 02/12/18 08:59 01/15/18 08:03 30 MG Tamsulosin HCl (Flomax Cap) 0.4 mg HS PO 01/13/18 21:00 02/12/18 20:59 Future hold 01/14/18 21:00 0.4 MG Glucose (Glucose 40% Gel) 15-30 GRAMS 15 GRAMS... UD PRN PO 01/12/18 22:30 02/11/18 22:29 Glucose (Glucose Chew Tab) 4-8 Tablets 4 Tabl... UD PRN PO 01/12/18 22:30 02/11/18 22:29 Dextrose (Dextrose 50% 50ML Syringe) 25-50ML OF 50% DW IV FOR... UD PRN IV 01/12/18 22:30 02/11/18 22:29 Glucagon (Glucagon Inj) 1 mg UD PRN SQ 01/12/18 22:30 02/11/18 22:29 Acetaminophen (Tylenol Tab) 1,000 mg Q8 PRN PO 01/14/18 17:00 02/13/18 16:59 01/15/18 19:06 1,000 MG Insulin Aspart (novoLOG ASPART) SLIDING SCALE If C... ACHS SC 01/15/18 08:00 02/14/18 07:59 01/15/18 18:48 3 UNITS Atenolol (Tenormin Tab) 50 mg QAM PO 01/16/18 09:00 02/12/18 08:59 Lisinopril (Zestril Tab) 2.5 mg QAM PO 01/16/18 09:00 02/15/18 08:59 Enalaprilat 0.625 mg/Dextrose 25.5 ml @ 100 mls/hr Q6H PRN IV 01/15/18 08:15 02/14/18 08:14 01/15/18 11:12 100 MLS/HR Haloperidol Lactate (Haldol Inj) 0.5 mg Q1H PRN IM 01/15/18 08:15 02/14/18 08:14 Olanzapine (Zyprexa Zydis Od Tab) 2.5 mg Q8H PRN PO 01/15/18 08:15 02/14/18 08:14 01/15/18 11:10 2.5 MG Clopidogrel Bisulfate (plAVix TAB) 75 mg QAM PO 01/15/18 10:30 02/14/18 10:29 01/15/18 10:12 75 MG Pantoprazole Sodium 40 mg/ Syringe 10 ml @ 5 mls/min DAILY@ IV 01/15/18 10:30 02/14/18 10:29 01/15/18 10:12 5 MLS/MIN
[2018-01-15] MEDS: TAMSULOSIN HCL 0.4 MG CAP PO SCH (21:05)
[2018-01-15] MEDS: HALOPERIDOL LACTATE 5 MG/ML 1 ML VIAL IM PRN (22:00)
[2018-01-16] VITALS (9 sets, daily range): BP systolic 158–184; BP diastolic 72–82; PULSE 71–90; TEMP 36.5–37.1; O2SAT 94–98
[2018-01-16] MEDS: HALOPERIDOL LACTATE 5 MG/ML 1 ML VIAL IM PRN (02:33)
[2018-01-16] MEDS ORDERED: NURSING VERBAL MED ORDER ONE (05:45)
[2018-01-16] MEDS ORDERED: INSULIN ASPART 100 UNITS/ML 3 ML PEN SC SCH (06:00)
[2018-01-16] MEDS: LISINOPRIL 2.5 MG TAB PO SCH (07:23)
[2018-01-16] MEDS: DULOXETINE (CYMBALTA) 30 MG CAP PO SCH (07:23)
[2018-01-16] MEDS: PANTOprazole INJ 40 MG in SYRINGE 0 ML IV SCH ×2 (07:25→20:25)
--- NOTE | 2018-01-16 08:34 | DIAGNOSTIC IMAGING REPORT ---
(BARIUM SWALLOW) ESOPHAGUS CLINICAL HISTORY: Dysphagia. COMPARISON STUDY: None. FLUOROSCOPY TIME: 1 minute. FINDINGS: Moderate esophageal dysmotility was noted. No esophageal mass or stricture was noted. A 13 mm barium tablet passed freely into the stomach. Moderate reflux was elicited. No hiatal hernia was identified. IMPRESSION: 1. Moderate esophageal dysmotility. 2. Moderate gastroesophageal reflux. 3. No esophageal mass or structure. Electronically signed by: Justyn Meyers M.D. 01/16/2018 8:33 AM Dictated Date/Time: 01/16/2018 8:32 AM
--- NOTE | 2018-01-16 09:24 | Progress Note ---
Subjective Date of Service: Jan 16, 2018. Subjective Pt evaluation today including: conversation w/ patient, chart review, lab review Voiding: no voiding problems Pt remains confused. Thinks he is at a hotel, but then does recall having a swallowing study this morning. Continues to require one to one supervision. Per aid, he has been awake all night and confused. TOV yesterday. Per nursing reports, he is voiding well. Flomax has been resumed. Repeat UC&S pending. Review of Systems Pt unable to answer questions d/t AMS. Objective Vital Signs Date Time Temp Pulse Resp B/P (MAP) Pulse Ox O2 Delivery O2 Flow Rate FiO2 01/16/18 09:14 81 18 183/75 (111) 95 Room Air 01/16/18 07:01 37.1 90 16 184/77 (112) 94 Room Air 01/16/18 00:21 36.5 74 18 158/72 (100) 94 Room Air 01/15/18 23:22 Room Air 01/15/18 22:25 36.8 73 16 185/77 (113) 94 Room Air 01/15/18 15:30 Room Air 01/15/18 15:12 36.8 72 16 174/76 (108) 96 Room Air 180/77 (111) 01/15/18 13:55 72 158/69 (98) 01/15/18 11:12 67 176/77 (110) 01/15/18 09:43 66 166/69 (101) Physical Exam General Appearance: no apparent distress Eyes: normal inspection ENT: hearing grossly normal Neck: no JVD Respiratory/Chest: no respiratory distress, no accessory muscle use Cardiovascular: no JVD Extremities: normal inspection Neurologic/Psychiatric: alert, + disoriented Skin: normal color Laboratory Results Last 24 Hours Test 01/15/18 11:55 01/15/18 13:05 01/15/18 17:01 01/15/18 20:38 Bedside Glucose 133 mg/dl 143 mg/dl 137 mg/dl Potassium Level 3.5 mmol/L Troponin I 0.063 ng/ml Test 01/16/18 04:44 01/16/18 05:42 Bedside Glucose 149 mg/dl Assessment and Plan A/P: Urinary retention UR resolved. Pt voiding well. Continue Flomax. No further management at this time. Will arrange for outpatient f/u in 2-3 weeks. Recall PRN issues. Thanks for allowing us to participate in this pt's care.
[2018-01-16 10:06] LABS: CALCIUM 9.3 mg/dl (8.5-10.1); CREATININE 0.74 mg/dl (0.60-1.40); POTASSIUM 3.8 mmol/L (3.5-5.1)
[2018-01-16] MEDS: ENALAPRILAT IV 0.625 MG in DEXTROSE 5% 25ML 25 ML IV PRN ×2 (10:57→20:25)
[2018-01-16] MEDS: CLOPIDOGREL BISULFATE 75 MG TAB PO SCH (10:57)
[2018-01-16] MEDS ORDERED: NURSING DECISION MEDICATION ORDER SCH (12:45)
[2018-01-16] MEDS: INSULIN ASPART 100 UNITS/ML 3 ML PEN SC SCH ×2 (18:42→21:31)
[2018-01-16] MEDS: TAMSULOSIN HCL 0.4 MG CAP PO SCH (20:25)
--- NOTE | 2018-01-16 23:14 | Progress Note ---
Medicine Progress Note Date & Time of Visit: Jan 16, 2018 at 14:30 . Subjective Gradually improving. Still has intermittent confusion. Did not sleep well last night, but took a nap this afternoon. No fever. No chest pain. No cough or shortness of breath. No nausea or vomiting. No diarrhea. Voiding without difficulty. No significant back pain. Ambulating. . Objective Last 8 Hrs Date Time Temp Pulse Resp B/P (MAP) Pulse Ox O2 Delivery O2 Flow Rate FiO2 01/16/18 23:05 37.1 85 16 182/82 (115) 94 Room Air 01/16/18 19:53 74 171/72 (105) 01/16/18 19:45 Room Air 01/16/18 15:18 85 18 178/80 (112) 01/16/18 15:17 73 174/79 (110) Physical Exam: General- lying in bed; no distress Lungs- clear to auscultation; no respiratory distress Cardiovascular- RRR; III/ systolic murmur at base; no gallop; no JVD; no pretibial edema Abdomen- + bowel sounds, soft, nontender Back-lumbar incision without erythema or drainage Extremities- no cyanosis; no calf tenderness Neuro- alert, mild-moderate confusion but essentially oriented 3 Skin- warm & dry . Laboratory Results: Last 24 Hours Test 01/16/18 05:42 01/16/18 09:17 01/16/18 12:00 01/16/18 17:08 Bedside Glucose 149 mg/dl 141 mg/dl 161 mg/dl Sodium Level 139 mmol/L Potassium Level 3.8 mmol/L Chloride Level 105 mmol/L Carbon Dioxide Level 27 mmol/L Anion Gap 7.0 mmol/L Blood Urea Nitrogen 19 mg/dl Creatinine 0.74 mg/dl Est Creatinine Clear Calc Drug Dose 96.0 ml/min Estimated GFR () 103.8 Estimated GFR (Non- 89.6 BUN/Creatinine Ratio 25.0 Random Glucose 134 mg/dl Calcium Level 9.3 mg/dl Test 01/16/18 19:59 Bedside Glucose 126 mg/dl Assessment & Plan ACUTE KIDNEY INJURY Serum creatinine at time of admission 2.13. Received IV fluids. Patel catheter inserted for urinary retention. Creatinine today = 0.74. Follow. URINARY RETENTION Developed urinary retention postoperatively after back surgery and Patel catheter was placed. Urology consulted to follow. Patel catheter removed yesterday. Voiding without difficulty. CONFUSION Suspect delirium, most likely secondary to medications. Dehydration may have been contributing factor. Discontinued baclofen, hydrocodone, and nortriptyline. DYSPHAGIA GI consulted. EGD today demonstrated gastritis, but no apparent esophageal pathology. Barium swallow demonstrated GERD and esophageal dysmotility. Food choices, swallowing technique, GERD information provided. GASTRITIS Noted on EGD. PPI x 6 months recommended. CORONARY ARTERY DISEASE S/P PCI LAD. Currently on aspirin and atenolol. Brief episode of chest vs epigastric pain. EKG showed NSR, slight lateral ST depression. Troponin slightly elevated in setting of delirium and elevated BP's. Doubt acute coronary syndrome. Changed antiplatelet therapy from aspirin to clopidogrel due to gastritis. HYPERTENSION BP's elevated in the setting of delirium. Lisinopril was held due to acute kidney injury. Continue atenolol. Resumed lisinopril. DM TYPE II Well-controlled. Hemoglobin A1c 7.2 01/07/18. Fasting blood sugar today 149. NovoLog per protocol. S/P LUMBAR DECOMPRESSION / FUSION PT / OT. VTE PROPHYLAXIS No anticoagulants due to gastritis. SCD's. Ambulate. DISPOSITION Expected discharge to home. Medical follow-up with Dr. Rojas. Family visiting and given update. . Current Inpatient Medications: Current Inpatient Medications Medications (Trade) Dose Ordered Sig/Ivette Route Start Time Stop Time Status Last Admin Dose Admin Ondansetron HCl (Zofran Inj) 4 mg Q6H PRN IV 01/12/18 22:00 02/11/18 21:59 Duloxetine HCl (Cymbalta Cap) 30 mg QAM PO 01/13/18 09:00 02/12/18 08:59 01/16/18 07:23 30 MG Tamsulosin HCl (Flomax Cap) 0.4 mg HS PO 01/13/18 21:00 02/12/18 20:59 Future hold 01/16/18 20:25 0.4 MG Glucose (Glucose 40% Gel) 15-30 GRAMS 15 GRAMS... UD PRN PO 01/12/18 22:30 02/11/18 22:29 Glucose (Glucose Chew Tab) 4-8 Tablets 4 Tabl... UD PRN PO 01/12/18 22:30 02/11/18 22:29 Dextrose (Dextrose 50% 50ML Syringe) 25-50ML OF 50% DW IV FOR... UD PRN IV 01/12/18 22:30 02/11/18 22:29 Glucagon (Glucagon Inj) 1 mg UD PRN SQ 01/12/18 22:30 02/11/18 22:29 Acetaminophen (Tylenol Tab) 1,000 mg Q8 PRN PO 01/14/18 17:00 02/13/18 16:59 01/15/18 19:06 1,000 MG Atenolol (Tenormin Tab) 50 mg QAM PO 01/16/18 09:00 02/12/18 08:59 01/16/18 07:23 50 MG Lisinopril (Zestril Tab) 2.5 mg QAM PO 01/16/18 09:00 02/15/18 08:59 01/16/18 07:23 2.5 MG Enalaprilat 0.625 mg/Dextrose 25.5 ml @ 100 mls/hr Q6H PRN IV 01/15/18 08:15 02/14/18 08:14 01/16/18 20:25 100 MLS/HR Haloperidol Lactate (Haldol Inj) 0.5 mg Q1H PRN IM 01/15/18 08:15 02/14/18 08:14 01/16/18 02:33 0.5 MG Olanzapine (Zyprexa Zydis Od Tab) 2.5 mg Q8H PRN PO 01/15/18 08:15 02/14/18 08:14 01/15/18 11:10 2.5 MG Clopidogrel Bisulfate (plAVix TAB) 75 mg QAM PO 01/15/18 10:30 02/14/18 10:29 01/16/18 10:57 75 MG Pantoprazole Sodium 40 mg/ Syringe 10 ml @ 5 mls/min DAILY@09,21 IV 01/15/18 10:30 02/14/18 10:29 01/16/18 20:25 5 MLS/MIN Insulin Aspart (novoLOG ASPART) SLIDING SCALE If C... ACHS SC 01/16/18 17:15 02/15/18 17:14 01/16/18 18:42 4 UNITS
[2018-01-17 05:00] VITALS: BP 188/83; PULSE 81
[2018-01-17] MEDS: ENALAPRILAT IV 0.625 MG in DEXTROSE 5% 25ML 25 ML IV PRN (05:18)
[2018-01-17 07:09] VITALS: BP 177/74; PULSE 85; TEMP 36.7; O2SAT 94
[2018-01-17] MEDS: DULOXETINE (CYMBALTA) 30 MG CAP PO SCH (07:29)
[2018-01-17] MEDS: CLOPIDOGREL BISULFATE 75 MG TAB PO SCH (07:29)
[2018-01-17] MEDS: LISINOPRIL 2.5 MG TAB PO SCH (07:30)
[2018-01-17] MEDS: PANTOprazole INJ 40 MG in SYRINGE 0 ML IV SCH (09:25)
[2018-01-17] MEDS: INSULIN ASPART 100 UNITS/ML 3 ML PEN SC SCH ×2 (09:27→12:58)
[2018-01-17 09:33] VITALS: BP 153/66; PULSE 77; O2SAT 97
[2018-01-17] MEDS ORDERED: MELA1TAB49 PO (12:34)
[2018-01-17] MEDS ORDERED: ACET-1138 PO (12:34)
[2018-01-17] MEDS ORDERED: OMEP40CA41 PO (12:34)
[2018-01-17] MEDS ORDERED: PLV75 PO (12:34)
--- NOTE | 2018-01-17 13:43 | Discharge Instructions ---
Discharge Instructions Date of Service Jan 17, 2018. Admission Reason for Admission: confusion . Discharge Discharge Diagnosis / Problem: confusion Discharge Goals Goal(s): Increase independence, Improve disease control Activity Recommendations Activity Limitations: as noted below Lifting Limitations: until after follow-up appointment (as directed by Dr. Longo) Exercise/Sports Limitations: gradually increase as tolerated Driving or Machine Use: no driving until Dr. Rojas says "OK" . Instructions / Follow-Up Instructions / Follow-Up APPOINTMENTS: PRIMARY CARE 01/27/2018 1:00 PM Oralia Rojas MD OTHER INSTRUCTIONS: You were confused, probably because of certain medications that you were taking. Stop taking oxycodone with acetaminophen (Percocet or Roxicet), hydrocodone with acetaminophen (Vicodin or Lortab), cyclobenzaprine (Flexeril), nortriptyline (Pamelor). Avoid antihistamines, including cetirizine (Zyrtec), diphenhydramine ( ingredient in Benadryl, Tylenol PM, cold and allergy medications). Scope of stomach showed inflammation (gastritis). Stop taking aspirin. Avoid anti-inflammatory medications like ibuprofen (Advil, Motrin) and naproxen (Aleve). Barium test showed acid reflux and poor coordination of muscles in your esophagus. Avoid dry foods that might get stuck. Take small bites. Chew thoroughly. Eat slowly. Take sips of water between bites. Don't eat too much. Avoid caffeine and chocolate (except for an occasional treat). Keep your head elevated on pillows when you are sleeping. Take omeprazole (Prilosec) 40 mg daily. Start taking clopidogrel (Plavix) for your heart disease. (This will replace aspirin.) Taking melatonin 3 mg tablets 2 hours before bedtime may help you get back on schedule with your sleep. Only take it for 1-2 weeks. Seek medical attention if you have: * temperature above 101 * chest pain or trouble breathing * abdominal pain, nausea, vomiting * diarrhea, dark stools or bloody stools * trouble urinating * worsening confusion, seeing or hearing things that are not real * any unanswered questions or concerns Call 911 if symptoms are severe. Call if you have any questions or problems. My cell # is [phone]. You can also reach a [facility] hospitalist on duty at [facility] 24 hours a day by calling [phone]. Please take good care of yourself. Rodrigo Boswell . Current Hospital Diet Patient's current hospital diet: AHA Diet (Heart Healthy), Diabetes Type 2 Diet , Low Fiber Diet Discharge Diet Recommended Diet: AHA Diet (Heart Healthy), Diabetes Type 2 Diet Procedures Procedures Performed: upper endoscopy barium swallow Pending Studies Studies pending at discharge: no Laboratory Results Hemoglobin A1c Test 01/07/18 08:06 Range/Units Estimated Average Glucose 160 mg/dl Hemoglobin A1c 7.2 H 4.5-5.6 % Medical Emergencies . Who to Call and When: Medical Emergencies: If at any time you feel your situation is an emergency, please call 911 immediately. . Non-Emergent Contact Non-Emergency issues call your: Primary Care Provider, Oracle Application Consultant, Hospital Doctor . . "Provider Documentation" section prepared by Rodrigo Boswell. .
--- NOTE | 2018-01-17 13:43 | Progress Note ---
Medicine Progress Note Date & Time of Visit: Jan 17, 2018 at 13:43 . Subjective Delirium continues to improve, but still has intermittent episodes of confusion. Still not sleeping well. No chest pain, cough, shortness of breath, nausea, vomiting. Back pain well controlled without narcotics. . Objective Last 8 Hrs Date Time Temp Pulse Resp B/P (MAP) Pulse Ox O2 Delivery O2 Flow Rate FiO2 01/17/18 09:33 77 18 153/66 (95) 97 01/17/18 07:29 Room Air 01/17/18 07:09 36.7 85 18 177/74 (108) 94 Room Air Physical Exam: General- lying in bed; no distress Lungs- clear to auscultation; no respiratory distress Cardiovascular- RRR; III/ systolic murmur at base; no gallop; no JVD; no pretibial edema Abdomen- + bowel sounds, soft, nontender Extremities- no cyanosis; no calf tenderness Neuro- alert, mild confusion but oriented 3 Skin- warm & dry . Laboratory Results: Last 24 Hours Test 01/16/18 17:08 01/16/18 19:59 01/17/18 12:19 Bedside Glucose 161 mg/dl 126 mg/dl 122 mg/dl Assessment & Plan ACUTE KIDNEY INJURY Serum creatinine at time of admission 2.13. Received IV fluids. Patel catheter inserted postop for urinary retention and was initially continued. Creatinine on 01/16 was 0.74. Follow. URINARY RETENTION Developed urinary retention postoperatively after back surgery and Patel catheter was placed. Urology consulted to follow. Patel catheter removed. Voiding without difficulty. CONFUSION Suspect delirium, most likely secondary to medications. Dehydration may have been contributing factor. Discontinued baclofen, hydrocodone, and nortriptyline. Delirium improving. Try melatonin 3 mg at bedtime for 1-2 weeks to help normalize sleep cycle. DYSPHAGIA (esophageal dysmotility + GERD) GI consulted. EGD 01/14 demonstrated gastritis, but no apparent esophageal pathology. Barium swallow 01/16 demonstrated GERD and esophageal dysmotility. Food choices, swallowing technique, GERD information provided. PPI GASTRITIS Noted on EGD. PPI x 6 months recommended (although needs long-term Rx for GERD). CORONARY ARTERY DISEASE S/P PCI LAD. Currently on aspirin and atenolol. Brief episode of chest vs epigastric pain 01/15. EKG showed NSR, slight lateral ST depression. Troponin slightly elevated in setting of delirium and elevated BP's. Doubt acute coronary syndrome. Changed antiplatelet therapy from aspirin to clopidogrel due to gastritis. HYPERTENSION BP's elevated in the setting of delirium. Lisinopril was held due to acute kidney injury. Continue atenolol. Resumed lisinopril. BP's day of discharge 177/74, 153/66. Follow and titrate therapy. DM TYPE II Well-controlled. Hemoglobin A1c 7.2 01/07/18. Received NovoLog per protocol. Blood sugar the day of discharge 122. Continue dietary management at home. Follow. S/P LUMBAR DECOMPRESSION / FUSION Pain improved. Received PT / OT. VTE PROPHYLAXIS No anticoagulants due to gastritis. SCD's. Ambulate. DISPOSITION Discharged to home. Medical follow-up with Dr. Rojas. . Current Inpatient Medications: Current Inpatient Medications Medications (Trade) Dose Ordered Sig/Ivette Route Start Time Stop Time Status Last Admin Dose Admin Ondansetron HCl (Zofran Inj) 4 mg Q6H PRN IV 01/12/18 22:00 02/11/18 21:59 Duloxetine HCl (Cymbalta Cap) 30 mg QAM PO 01/13/18 09:00 02/12/18 08:59 01/17/18 07:29 30 MG Tamsulosin HCl (Flomax Cap) 0.4 mg HS PO 01/13/18 21:00 02/12/18 20:59 Future hold 01/16/18 20:25 0.4 MG Glucose (Glucose 40% Gel) 15-30 GRAMS 15 GRAMS... UD PRN PO 01/12/18 22:30 02/11/18 22:29 Glucose (Glucose Chew Tab) 4-8 Tablets 4 Tabl... UD PRN PO 01/12/18 22:30 02/11/18 22:29 Dextrose (Dextrose 50% 50ML Syringe) 25-50ML OF 50% DW IV FOR... UD PRN IV 01/12/18 22:30 02/11/18 22:29 Glucagon (Glucagon Inj) 1 mg UD PRN SQ 01/12/18 22:30 02/11/18 22:29 Acetaminophen (Tylenol Tab) 1,000 mg Q8 PRN PO 01/14/18 17:00 02/13/18 16:59 01/15/18 19:06 1,000 MG Atenolol (Tenormin Tab) 50 mg QAM PO 01/16/18 09:00 02/12/18 08:59 01/17/18 07:30 50 MG Lisinopril (Zestril Tab) 2.5 mg QAM PO 01/16/18 09:00 02/15/18 08:59 01/17/18 07:30 2.5 MG Enalaprilat 0.625 mg/Dextrose 25.5 ml @ 100 mls/hr Q6H PRN IV 01/15/18 08:15 02/14/18 08:14 01/17/18 05:18 100 MLS/HR Haloperidol Lactate (Haldol Inj) 0.5 mg Q1H PRN IM 01/15/18 08:15 02/14/18 08:14 01/16/18 02:33 0.5 MG Olanzapine (Zyprexa Zydis Od Tab) 2.5 mg Q8H PRN PO 01/15/18 08:15 02/14/18 08:14 01/15/18 11:10 2.5 MG Clopidogrel Bisulfate (plAVix TAB) 75 mg QAM PO 01/15/18 10:30 02/14/18 10:29 01/17/18 07:29 75 MG Pantoprazole Sodium 40 mg/ Syringe 10 ml @ 5 mls/min DAILY@09,21 IV 01/15/18 10:30 02/14/18 10:29 01/17/18 09:25 5 MLS/MIN Insulin Aspart (novoLOG ASPART) SLIDING SCALE If C... ACHS SC 01/16/18 17:15 02/15/18 17:14 01/17/18 12:58 2 UNITS
[2018-01-17 14:08] VITALS: BP 153/66; PULSE 77; TEMP 36.7; O2SAT 97
--- NOTE | 2018-01-19 23:44 | Discharge Summary ---
Discharge Summary Date of Service Jan 19, 2018. Discharge Summary Admission Date: Jan 12, 2018 at 21:52 Discharge Date: Jan 17, 2018 Discharge Disposition: Home Principal Diagnosis: delirium . Secondary Diagnoses/Problems: OTHER ACUTE SECONDARY DIAGNOSES: acute kidney injury urinary retention gastritis dysphagia, esophageal dysmotility Chronic and Resolved Medical Problems: (1) CAD (coronary artery disease) Permanent Comment: NATALIYA to Cx 11/2016 - Xience stent x 4 to LAD Status: Chronic (2) Depression Status: Chronic (3) DM type 2 (diabetes mellitus, type 2) Status: Chronic (4) GERD (gastroesophageal reflux disease) Status: Chronic (5) HTN (hypertension) Status: Chronic Surgical Problems: (1) History of appendectomy Status: Chronic (2) History of cholecystectomy Status: Chronic (3) History of tonsillectomy and adenoidectomy Status: Chronic (4) S/P hemilaminotomy Status: Chronic (5) Status post lumbar spine surgery for decompression of spinal cord Status: Chronic . Procedures: EGD barium esophagram IV fluids . Consultations: GI . Medication Reconciliation New Medications: Acetaminophen (Tylenol Extra Strength) 500 Mg Tab 1000 MG PO Q8 PRN for Pain, #60 TAB No prescription necessary. Clopidogrel Bisulfate (Clopidogrel) 75 Mg Tab 75 MG PO DAILY, #30 TAB 11 Refills Melatonin (Melatonin) 3 Mg Tab 3 MG PO UD, #30 TAB No prescription necessary. Take 2 hours before bed time. Only take for 1-2 weeks. Omeprazole (Prilosec) 40 Mg Cap 40 MG PO DAILY, #30 CAP 5 Refills Continued Medications: Atenolol (Tenormin) 50 Mg Tab 50 MG PO QAM, TAB Duloxetine Hcl (Cymbalta) 30 Mg Cap 30 MG PO DAILY, CAP Fluocinonide (Fluocinonide) 0.05 % Rocio 1 APPLN TOP DAILY PRN for PRN for 30 Days, #60 ML 2 Refills Indapamide (Lozol) 1.25 Mg Tab 1.25 MG PO QAM, TAB Insulin Human Lispro (Humalog Kwikpen) 100 Units/Ml Inj SQ TID PRN for sliding scale Lisinopril (Lisinopril) 10 Mg Tab 10 MG PO HS Nitroglycerin (Nitrostat) 0.4 Mg Tab 0.4 MG UT PRN, BTL Tamsulosin Hcl (Flomax) 0.4 Mg Cap 0.4 MG PO HS for 30 Days, #30 CAP 1 Refill Discontinued Medications: Aspirin (Aspirin Ec) 81 Mg Tab 81 MG PO QPM Cetirizine (Zyrtec) 10 Mg Tab 10 MG PO DAILY PRN for PRN, TAB Cyclobenzaprine Hcl (Flexeril) 10 Mg Tab 10 MG PO TID PRN for Muscle Spasms, #21 TAB Hydrocodone/Acetaminophen 5MG/325MG ([place] 5MG/325MG) Tab 1 TABLET PO Q6H PRN for Pain, TAB Nortriptyline (Pamelor) 10 Mg Cap 10 MG PO HS, CAP Oxycodone HCl (Oxycodone HCl) 5 Mg Tab 5-10 MG PO Q4H PRN for Moderate - severe pain for 30 Days, #60 TAB Ranitidine (Zantac) 150 Mg Tab 150 MG PO BID, TAB Admission Information HPI (per Admitting provider): 78-year-old male who presents to the ER with decreased urine output and hallucinations. Patient was recently admitted to [facility] 01/06 through 12/20/22 for lumbar decompression surgery. Postoperative course was complicated by urinary retention requiring Patel placement. Patient was evaluated by urology and also started on Flomax. Patient reports that since being home, he has had very poor oral intake. He reports difficulty swallowing. He notes this is a long- standing problem for him however has been worse since his surgery. He denies ever having any EGD in the past. Today patient reports that while laying in bed he was hallucinating seeing people that were not there and was also talking to them. had noticed that his urine output from his Patel had significantly decreased today. Patient denies fever and chills. He reports his postoperative back pain is well controlled with Vicodin. He denies abdominal pain, nausea, vomiting, and diarrhea. No chest pain or shortness of breath. He denies lightheadedness, dizziness, diaphoresis, and syncopal events. In the ED, patient's Patel catheter flushed without difficulty however there is very little return of urine. Patient received approximately 1500 cc of IVF prior to my exam and Patel is now draining dark yellow urine. Creatinine is found to be 2.1. Vital signs are stable. . Physical Exam (per Admitting): General Appearance: WD/WN, no apparent distress Head: normocephalic, atraumatic Eyes: normal inspection, EOMI, sclerae normal ENT: hearing grossly normal, + pertinent finding (Mucous membranes dry) Neck: supple, no JVD, trachea midline Respiratory/Chest: lungs clear, normal breath sounds, no respiratory distress Cardiovascular: regular rate, rhythm, no edema, normal peripheral pulses, + systolic murmur Abdomen/GI: normal bowel sounds, non tender, soft, no organomegaly Genitourinary - Male: + pertinent finding (Patel in place draining dark yellow urine) Back: + pertinent finding (S/P recent back surgery, surgical incision well approximated without surrounding erythema or drainage) Extremities/Musculoskelatal: normal inspection, no calf tenderness, normal capillary refill Neurologic/Psych: no motor/sensory deficits, alert, normal mood/affect, oriented x 3 Skin: normal color, warm/dry Hospital Course DELIRIUM Presented with confusion. Suspected delirium, most likely secondary to medications. Dehydration may have been contributing factor. Discontinued baclofen, hydrocodone, and nortriptyline. Delirium improving by discharge. Try melatonin 3 mg at bedtime for 1-2 weeks to help normalize sleep cycle. Avoid medications with anticholinergic and other SNOW SH[employer]ELER side effects whenever possible. ACUTE KIDNEY INJURY Serum creatinine at time of admission 2.13. Received IV fluids. Patel catheter inserted postop for urinary retention and was initially continued. Creatinine on 01/16 was 0.74. Follow. URINARY RETENTION Developed urinary retention postoperatively after back surgery and Patel catheter was placed. Urology consulted to follow. Patel catheter removed. Voiding without difficulty. Continue tamsulosin. Follow-up with Urology as needed. DYSPHAGIA (esophageal dysmotility) GI consulted. EGD 01/14 demonstrated gastritis, but no apparent esophageal pathology. Barium swallow 01/16 demonstrated GERD and esophageal dysmotility. Food choices, swallowing technique, GERD information provided. PPI GASTRITIS / GERD History of GERD. Gastritis noted on EGD. Biopsy negative for intestinal metaplasia, dysplasia, carcinoma, H. pylori. Continue PPI for gastritis + GERD. CORONARY ARTERY DISEASE S/P PCI LAD. Currently on aspirin and atenolol. Brief episode of chest vs epigastric pain 01/15. EKG showed NSR, slight lateral ST depression. Troponin slightly elevated in setting of delirium and elevated BP's. Doubt acute coronary syndrome. Changed antiplatelet therapy from aspirin to clopidogrel due to gastritis. HYPERTENSION BP's elevated in the setting of delirium. Lisinopril was held due to acute kidney injury. Continue atenolol. Resumed lisinopril. BP's day of discharge 177/74, 153/66. Follow and titrate therapy. DM TYPE II Well-controlled. Hemoglobin A1c 7.2 01/07/18. Received NovoLog per protocol. Blood sugar the day of discharge 122. Continue dietary management at home. Follow. S/P LUMBAR DECOMPRESSION / FUSION Pain improved. Received PT / OT. VTE PROPHYLAXIS No anticoagulants due to gastritis. SCD's. Ambulate. DISPOSITION Discharged to home. Medical follow-up with Dr. Rojas. Orthopedics follow-up with Dr. Longo. . Total time spent on discharge = 40 min. This includes examination of the patient, discharge planning, medication reconciliation, and communication with other providers. . Discharge Instructions Date of Service Jan 17, 2018. Admission Reason for Admission: confusion . Discharge Discharge Diagnosis / Problem: confusion Discharge Goals Goal(s): Increase independence, Improve disease control Activity Recommendations Activity Limitations: as noted below Lifting Limitations: until after follow-up appointment (as directed by Dr. Longo) Exercise/Sports Limitations: gradually increase as tolerated Driving or Machine Use: no driving until Dr. Rojas says "OK" . Instructions / Follow-Up Instructions / Follow-Up APPOINTMENTS: PRIMARY CARE 01/27/2018 1:00 PM Oralia Rojas MD OTHER INSTRUCTIONS: You were confused, probably because of certain medications that you were taking. Stop taking oxycodone with acetaminophen (Percocet or Roxicet), hydrocodone with acetaminophen (Vicodin or Lortab), cyclobenzaprine (Flexeril), nortriptyline (Pamelor). Avoid antihistamines, including cetirizine (Zyrtec), diphenhydramine ( ingredient in Benadryl, Tylenol PM, cold and allergy medications). Scope of stomach showed inflammation (gastritis). Stop taking aspirin. Avoid anti-inflammatory medications like ibuprofen (Advil, Motrin) and naproxen (Aleve). Barium test showed acid reflux and poor coordination of muscles in your esophagus. Avoid dry foods that might get stuck. Take small bites. Chew thoroughly. Eat slowly. Take sips of water between bites. Don't eat too much. Avoid caffeine and chocolate (except for an occasional treat). Keep your head elevated on pillows when you are sleeping. Take omeprazole (Prilosec) 40 mg daily. Start taking clopidogrel (Plavix) for your heart disease. (This will replace aspirin.) Taking melatonin 3 mg tablets 2 hours before bedtime may help you get back on schedule with your sleep. Only take it for 1-2 weeks. Seek medical attention if you have: * temperature above 101 * chest pain or trouble breathing * abdominal pain, nausea, vomiting * diarrhea, dark stools or bloody stools * trouble urinating * worsening confusion, seeing or hearing things that are not real * any unanswered questions or concerns Call 911 if symptoms are severe. Call if you have any questions or problems. My cell # is [phone]. You can also reach a [facility] hospitalist on duty at [facility] 24 hours a day by calling [phone]. Please take good care of yourself. Rodrigo Boswell . Current Hospital Diet Patient's current hospital diet: AHA Diet (Heart Healthy), Diabetes Type 2 Diet , Low Fiber Diet Discharge Diet Recommended Diet: AHA Diet (Heart Healthy), Diabetes Type 2 Diet Procedures Procedures Performed: upper endoscopy barium swallow Pending Studies Studies pending at discharge: no Laboratory Results Hemoglobin A1c Test 01/07/18 08:06 Range/Units Estimated Average Glucose 160 mg/dl Hemoglobin A1c 7.2 H 4.5-5.6 % Medical Emergencies . Who to Call and When: Medical Emergencies: If at any time you feel your situation is an emergency, please call 911 immediately. . Non-Emergent Contact Non-Emergency issues call your: Primary Care Provider, Food Order Delivery Runner, Hospital Doctor . . "Provider Documentation" section prepared by Rodrigo Boswell. . Additional Copies To Kashif Longo D.O.; Oralia Rojas
--- NOTE | 2018-01-20 12:35 | EDITING REQUIRED CODING QUERY ---
CODING QUERY To promote full compliance with coding requirements relating to patient care, provider participation is requested in all cases of machinist general uncertainty. Please assist us with the question(s) below: Coding Question(s): The H&P Addendum Section documents possible Metabolic Encephalopathy and the Discharge Summary documents Delirium most likely secondary to medications. Please specify below, in your clinical opinion. ( x ) Delirium is possible Metabolic Encephalopathy that is drug induced or Toxic Metabolic Encephalopathy (sorry about not being clear- in my mind encephalopathy due to meds is a type of metabolic encephalopathy) ( ) Delirium is not possible Metabolic Encephalopathy that is drug induced or Toxic Metabolic Encephalopathy Physician's Response(s): Thank you Lucille Rivera Principal Diagnosis: "_that condition established after study, to be chiefly responsible for occasioning the admission of the patient to the hospital for care." Co-Existing Principal Diagnosis: "_when two or more diagnoses equally meet the criteria for principal diagnosis as determined by the circumstances of admission, diagnostic work up, and/or therapy provided, and the Alphabetic Index, Tabular List, or another coding guideline does not provide sequencing direction, any one of the diagnoses may be sequenced first." "When the physician has documented what appears to be a current diagnosis in the body of the record, but has not included the diagnosis in the final diagnostic statement, the physician should be asked whether the diagnosis should be added." (Source [facility] 2 QTR90. p3-4)
== END 2018-01-17 14:34 | disposition home or self-care (01) | DRG 682 ==
LOC: C.EDB 18:44 → C.MSW 21:52 → ENRESERV 22:26 → C.MSW 01-13 03:29 → C.MSN 01-13 22:39
PROVIDERS: ADMIT Hospitalist; ATTEND Hospitalist
PROC: 0DB68ZX Excision of Stomach, Via Natural or Artificial Opening Endoscopic, Diagnostic (ICD-10-PCS; principal; 2018-01-14 09:58)
DX: N17.9 Acute kidney failure, unspecified (principal); G92 Toxic encephalopathy; T42.8X5A Adverse effect of antiparkinsonism drugs and other central muscle-tone depressants, initial encounter; T40.2X5A Adverse effect of other opioids, initial encounter; T43.015A Adverse effect of tricyclic antidepressants, initial encounter; R33.8 Other retention of urine; R13.12 Dysphagia, oropharyngeal phase; K22.4 Dyskinesia of esophagus; K29.70 Gastritis, unspecified, without bleeding; E86.0 Dehydration; I25.10 Atherosclerotic heart disease of native coronary artery without angina pectoris; I11.9 Hypertensive heart disease without heart failure; E11.9 Type 2 diabetes mellitus without complications; K21.9 Gastro-esophageal reflux disease without esophagitis; F32.9 Major depressive disorder, single episode, unspecified; Z79.899 Other long term (current) drug therapy; Z79.82 Long term (current) use of aspirin; Z98.1 Arthrodesis status; Z95.5 Presence of coronary angioplasty implant and graft; Z87.891 Personal history of nicotine dependence; Z83.3 Family history of diabetes mellitus